=== PATIENT | male | born 1960 | race Caucasian/White ===

== ENCOUNTER 2020-04-02 09:33 | Outpatient (REF) | payer MEDICARE, MEDICAID, SELFPAY ==
--- NOTE | 2020-04-02 09:50 | XR_ITS ---
EXAMINATION: XR KNEE, RIGHT CLINICAL INFORMATION: Pain COMPARISON: None TECHNIQUE: Four views of the right knee. FINDINGS: Bone alignment is normal. No fracture or dislocation is seen. The femoral tibial joints are normal. There are small osteophytes at the patellofemoral joint. There are osteophytes at the quadriceps tendon insertion and patellar tendon origin and insertion. There is no joint effusion. XR/XR knee RT 4V IMPRESSION: Mild degenerative changes.
== END 2020-04-02 09:34 | disposition home or self-care (01) ==
LOC: HO.XRAY 09:33
PROVIDERS: PCP Internal Medicine; Visit Provider Internal Medicine
DX: M25.561 Pain in right knee (principal)
CPT/HCPCS: 73564

== ENCOUNTER 2022-02-27 08:25 | Outpatient (REF) | payer OTHER, SELFPAY | END 2022-02-27 08:26 | disposition home or self-care (01) | LOC: HO.XRAY 08:25 | PROVIDERS: PCP Internal Medicine; Visit Provider Internal Medicine | DX: Z13.89 Encounter for screening for other disorder (principal) ==

== ENCOUNTER 2023-01-09 09:56 | Emergency (ER) | payer OTHER, SELFPAY ==
--- NOTE | ~2023-01-09 | CT_ITS ---
EXAMINATION: CT ABDOMEN AND PELVIS WITHOUT CONTRAST CLINICAL INFORMATION: Left flank pain. COMPARISON: 03/18/2012 TECHNIQUE: Multidetector volumetric imaging was performed from the superior aspect of the liver through the pubic symphysis. Sagittal and coronal reformatted images were obtained on the technologist's workstation. This CT examination was performed using dose optimization techniques as appropriate, variously including the following: *Automated exposure control *Adjustment of mA and/or kV according to patient size (this includes techniques or standardized protocols for targeted exams where dose is matched to indication/reason for exam; i.e. extremities or head) *Use of iterative reconstruction technique DLP: 637 mGy-cm FINDINGS: LUNG BASES: The visualized lung bases are unremarkable. LIVER, GALLBLADDER, AND BILIARY TREE: The liver is normal in size, shape, and attenuation. No focal hepatic lesion or biliary ductal dilatation is present. The gallbladder is unremarkable with no evidence of radiopaque gallstones, gallbladder wall thickening, or obvious pericholecystic inflammatory changes. PANCREAS: Unremarkable. SPLEEN: Unremarkable. ADRENAL GLANDS: Unremarkable. KIDNEYS AND URETERS: A 5 mm calculus at the left ureteropelvic junction does not produce significant left-sided hydronephrosis. Multiple additional bilateral nonobstructing renal calculi are identified, numbering at least 3 on the right and one on the left, measuring up to 4 mm in diameter. These calculi are too small to obtain an accurate Hounsfield unit measurement. No right-sided hydroureteronephrosis. Minimal left perinephric fat stranding. Kidneys normal in size and cortical thickness. A simple appearing cyst is present at the upper pole of the right kidney. No suspicious renal lesions. No recommended imaging follow-up. BLADDER: Unremarkable. GASTROINTESTINAL TRACT: Stomach, small bowel, and colon are normal in caliber. Mild to moderate colonic diverticulosis at the descending and sigmoid colon. No intraperitoneal free fluid or free air. Appendix is normal. ABDOMINAL WALL: No significant hernia is appreciated. Focal skin thickening and subcutaneous edema in the right anterolateral abdominal wall on the subcostal region. LYMPH NODES: Normal. VASCULAR: Retroaortic left renal vein. No acute findings. PELVIC VISCERA: Unremarkable. OSSEOUS STRUCTURES: Status post L3 L5 spinal fusion. No fractures. 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 CT/CT abdomen pelvis wo IV con IMPRESSION: 1. A 5 mm calculus at the left ureteropelvic junction does not produce significant left-sided hydronephrosis. 2. Multiple additional nonobstructing bilateral renal calculi. 3. Mild to moderate colonic diverticulosis without evidence of acute diverticulitis. Fleischner guidelines were followed.
[2023-01-09 10:08] VITALS: BP 127/78; PULSE 71; RESP 17; TEMP 36.3; O2SAT 99; BMI 29.3
--- NOTE | 2023-01-09 10:32 | ED.ABDPAIN ---
HPI - Abdominal Pain General Chief Complaint: Abdominal Pain Stated Complaint: l side abd pain blood in urine Time Seen by Provider: 01/09/23 10:28 Source: patient and family Mode of arrival: ambulatory Limitations: no limitations History of Present Illness HPI narrative: 62 yo male with history of DM, HLD, chronic back pain takes prn oxycodone, BPH here with complaints left flank pain with radiation to LLQ x 3-4 days with intermittent hematuria/dysuria/urinary urgency and hesitancy with no clots. No fevers, vomiting, diarrhea, constipation, testicular pain Related Data Previous Rx's Medication Instructions Recorded ibuprofen 600 mg tablet 600 mg PO Q8H PRN pain #30 tabs 01/09/23 tamsulosin 0.4 mg capsule (Flomax) 0.4 mg PO BEDTIME #30 caps 01/09/23 Allergies Allergy/AdvReac Type Severity Reaction Status Date / Time No Known Allergies Allergy Mild NONE Unverified 01/25/20 17:06 Review of Systems Review of Systems Yes all other systems are reviewed and are negative Constitutional: Reports no additional constitutional complaints, Denies body ache(s), Denies chills, Denies fever(s), Denies headache(s) and Denies weakness Eyes: Reports no additional eye complaints and Denies change in vision Reports system reviewed and no additional complaints, except as documented, Denies dizziness, Denies headache(s), Denies nasal congestion, Denies nasal discharge and Denies neck pain Cardiovascular: Reports no additional cardiovascular complaints, Denies chest pain, Denies leg edema and Denies dyspnea Respiratory: Reports no additional respiratory complaints, Denies cough and Denies dyspnea Gastrointestinal: Reports no additional gastrointestinal complaints, Reports abdominal pain, Denies diarrhea, Denies nausea and Denies vomiting Genitourinary: Reports hematuria, Reports dysuria, Reports flank pain, Reports urinary frequency, Reports urinary hesitancy, Denies urinary incontinence and Reports urinary urgency Musculoskeletal: Reports no additional musculoskeletal complaints, Reports back pain, Denies arthralgias, Denies joint swelling, Denies neck pain, Denies numbness and Denies tingling Skin/Breast: Reports system reviewed and no additional complaints, except as docu and Denies rash Reports system reviewed and no additional complaints, except as documented, Denies dizziness, Denies headache(s), Denies numbness, Denies tingling and Denies weakness PMF Past Medical History Attestation statement: The following information was validated with the patient. Source: old records reviewed and nursing notes reviewed Social History Social History Alcohol intake: never Smoked in Last 30 Days: No Use of substances other than those prescribed or required for medical reasons: No Advance Directives: No Physical Exam ED Vital Signs: Vital Signs - 24 hr 01/09/23 10:08 Temperature 97.3 F Pulse Rate 71 Respiratory Rate 17 Blood Pressure 127/78 Pulse Oximetry 99 Oxygen Delivery Method Room Air BMI result Body Mass Index 29.3 Const General: cooperative, healthy appearing, comfortable and no acute distress Orientation/consciousness: patient oriented x3 Limitations: no limitations HENMT Head: Yes normal to inspection Ears: hearing grossly normal bilaterally Eyes General: appearance normal, both eyes and all related structures Pupils: Equal, round and reactive pupils present Neck Neck: Yes normal visual inspection Chest Chest palpation & inspection: normal inspection of the chest Resp Effort & Inspection: normal respiratory effort Auscultation: clear to auscultation bilaterally Cardio Rate: regular rate Rhythm: regular rhythm Peripheral pulses: Peripheral pulses 2+ throughout GI Inspection: Yes normal to inspection Palpation (GI): Soft to palpation, Tenderness to palpation present (GI) (left abdomen) and no guarding General: Yes CVA tenderness (left side ) Back/Spine/Pelvis Back: CVA tenderness (left side ) Skin General skin exam: no rashes or lesions noted Neuro General: patient oriented x3 and moves all extremities Cranial nerves: Yes Equal, round and reactive pupils present Cognition (Neuro): normal cognition Gait exam (Neuro): Normal gait present Course Course Course Narrative: UA show microscopic hematuria. No evidence of mike hematuria. Labs including renal function are normal. Postvoid residual is less than [address] of the abdomen and pelvis shows a left 5 mm UVJ stone with no hydro. Pain much improved with one dose of toradol. Patient tolerating PO with no vomiting. Has oxycodone at home which he uses prn for back pain. Will discharge home with ibuprofen, flomax and recommendations to follow up outpatient with Urology. Reviewed worrisome signs and symptoms of when to return to the emergency room. Comfortable plan for discharge home. Medical Decision Making Medical Decision Making [facility] Narrative: 62 yo male with history of DM, HLD, chronic back pain takes prn oxycodone, BPH here with complaints left flank pain with radiation to LLQ x 3-4 days with intermittent hematuria/dysuria/urinary urgency and hesitancy with no clots. No fevers, vomiting, diarrhea, constipation, testicular pain On exam has L CVAT, mild tenderness to left abdomen with no rebound or guarding. Will need labs, UA, CT, check PVR Will place PIV and give IVF, analgesia Differential Diagnosis Differential Diagnoses: The differential diagnosis associated with the presentation includes renal colic, uti, pyelo Admission/Observation Consideration of admission/observation: Escalation of care including admission/observation considered see course of care Lab Data MDM Lab Attestation statement: I reviewed the patient's lab results. 01/09/23 10:25 01/09/23 10:25 Labs: Lab Results 01/09/23 01/09/23 01/09/23 Range/Units 10:25 10:25 10:25 WBC 7.8 (4.8-10.8) X10*3/uL RBC 4.64 (4.60-5.80) X10*6/uL Hgb 13.8 L (14.0-18.0) g/dl Hct 41.3 L (42.0-52.0) % MCV 89.0 (80.0-98.0) fL MCH 29.7 (27.0-33.0) pg MCHC 33.4 (31.0-36.0) g/dl RDW 12.1 (11.0-16.0) % Plt Count 154 L (160-400) X10*3/uL MPV 10.3 (9.4-12.4) fL Immature Gran % (Auto) 0.3 (0.0-0.4) % Neut % (Auto) 81.9 H (45-73) % Lymph % (Auto) 10.1 L (20-40) % [place] % (Auto) 6.5 (2-11) % Eos % (Auto) 0.6 (0-4) % Baso % (Auto) 0.6 (0-2) % Lymph # (Auto) 0.8 L (1.2-4.9) X10*3/uL [place] # (Auto) 0.5 (0.1-1.2) X10*3/uL Eos # (Auto) 0.1 (0.0-0.4) X10*3/uL Baso # (Auto) 0.1 (0.0-0.2) X10*3/uL Abs Immat Gran (auto) 0.02 (0.00-0.03) X10*3/uL Absolute Neuts (auto) 6.4 (2.0-8.3) x10*3/uL Absolute Nucleated RBC 0.000 (0.0-0.012) X10*3/uL Nucleated RBC % (auto) 0.0 (0.0-0.2) /100WBC Sodium 141 (135-145) mmol/L Potassium 4.1 (3.3-5.1) mmol/L Chloride 108 (96-108) mmol/L Carbon Dioxide 23 (22-29) mmol/L Anion Gap 14 (12-20) BUN 21 H (9-16) mg/dL Creatinine 0.94 (0.5-1.4) mg/dL Estim Creat Clear Calc 89.2 Estimated GFR > 60 Random Glucose 124 H (60-115) mg/dL Calcium 9.5 (8.4-10.2) mg/dL Total Bilirubin 0.8 (0.0-1.0) mg/dL Direct Bilirubin 0.3 (0.0-0.5) mg/dL AST 29 (5-37) U/L ALT 32 (0-40) U/L Alkaline Phosphatase 63 (39-117) U/L Total Protein 7.5 (6.5-8.0) g/dL Albumin 4.4 (3.5-5.0) g/dL Lipase 150 H (8-78) U/L Urine Color Yellow Urine Appearance Clear Urine pH 5.5 (5.0-9.0) Ur Specific [place] 1.025 (1.005-1.025) Urine Protein 30 (1+) H (Neg-Trace) mg/dL Urine Glucose (UA) >=1000 H (Negative) mg/dL Urine Ketones Negative (Negative) mg/dL Urine Blood Large (3+) H (Negative) Urine Nitrite Negative (Negative) Ur Leukocyte Esterase Trace H (Negative) Urine RBC >20 H (0-2) /HPF Urine WBC 0-5 (0-5) /HPF Ur Squamous Epith Cells 0-2 (0-2) /HPF Urine Bacteria None Seen (None Seen) Hyaline Casts 0-2 (0-2) /LPF Independent Interpretation I performed an independent interpretation of an: CT Scan Interpretation: I independently reviewed the CT scan agree with radiology report Radiology Impression Discussion of test interpretation with radiology: I have reviewed the radiologist's reading. Radiologist Impression: FINDINGS: LUNG BASES: The visualized lung bases are unremarkable.? LIVER, GALLBLADDER, AND BILIARY TREE: The liver is normal in size, shape, and attenuation. No focal hepatic lesion or biliary ductal dilatation is present. The gallbladder is unremarkable with no evidence of radiopaque gallstones, gallbladder wall thickening, or obvious pericholecystic inflammatory changes.? PANCREAS: Unremarkable.? SPLEEN: Unremarkable.? ADRENAL GLANDS: Unremarkable.? KIDNEYS AND URETERS: A 5 mm calculus at the left ureteropelvic junction does not produce significant left-sided hydronephrosis. Multiple additional bilateral nonobstructing renal calculi are identified, numbering at least 3 on the right and one on the left, measuring up to 4 mm in diameter. These calculi are too small to obtain an accurate Hounsfield unit measurement. No right-sided hydroureteronephrosis. Minimal left perinephric fat stranding. Kidneys normal in size and cortical thickness. A simple appearing cyst is present at the upper pole of the right kidney. No suspicious renal lesions. No recommended imaging follow-up. BLADDER: Unremarkable.? GASTROINTESTINAL TRACT: Stomach, small bowel, and colon are normal in caliber. Mild to moderate colonic diverticulosis at the descending and sigmoid colon. No intraperitoneal free fluid or free air. Appendix is normal. ABDOMINAL WALL: No significant hernia is appreciated. Focal skin thickening and subcutaneous edema in the right anterolateral abdominal wall on the subcostal region. LYMPH NODES: Normal. VASCULAR: Retroaortic left renal vein. No acute findings. PELVIC VISCERA: Unremarkable.? OSSEOUS STRUCTURES: Status post L3 L5 spinal fusion. No fractures. 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 CT/CT abdomen pelvis wo IV con IMPRESSION: 1.? A 5 mm calculus at the left ureteropelvic junction does not produce significant left-sided hydronephrosis. 2.? Multiple additional nonobstructing bilateral renal calculi. 3.? Mild to moderate colonic diverticulosis without evidence of acute diverticulitis. ? Independent Historian Clinical information obtained from an independent historian. History obtained from or confirmed by: Other daughter Medications Administered Discontinued Medications Generic Name Dose Route Start Last Admin Trade Name Freq PRN Reason Stop Dose Admin Sodium Chloride 1,000 mls @ 999 mls/hr 01/09/23 10:47 01/09/23 10:53 Ns IV 01/09/23 11:47 999 mls/hr .Q1H1M STA Administration Ketorolac Tromethamine 30 mg 01/09/23 10:47 01/09/23 10:55 Ketorolac Tromethamine 30 Mg/Ml Vial IVPUSH 01/09/23 10:48 30 mg ONCE ONE Administration Discharge Plan Discharge Clinical Impression: Calculus of kidney Patient Disposition: Home, Self-Care Instructions: Kidney Stones (ED) Additional Instructions: Return for fever, vomiting, worsening pain Increase fluids, rest Follow-up with urology Regrese por fiebre, v?mitos o empeoramiento del dolor. Aumentar l?quidos, descansar. Seguimiento con urolog?a. Prescriptions: New tamsulosin [Flomax] 0.4 mg capsule 0.4 mg PO BEDTIME Qty: 30 0RF ibuprofen 600 mg tablet 600 mg PO Q8H PRN (Reason: pain) Qty: 30 0RF Referrals: Chandler Shields MD [Physician] - 1 week Interventions: ED Discharge Assessment Last Done: 01/09/23 12:17 Discharge Date/Time: 01/09/23 12:18
[2023-01-09 10:33] LABS: MANUAL DIFF FLAG NO
[2023-01-09 10:34] LABS: Appearance Urine Clear; Color Urine Yellow; Glucose Urine UA >=1000 mg/dL (Negative); Leukocyte Esterase Urine Trace (Negative); Nitrite Urine Negative (Negative); PH 5.5 (5.0-9.0); Specific Gravity - Urine 1.025 (1.005-1.025); UMIC TRIGGER UACC YES; Urine Blood Large (3+) (Negative); Urine Ketones Negative (Negative); Urine Protein 30 (1+) mg/dL (Neg-Trace)
[2023-01-09 10:39] LABS: Bacteria Urine None Seen (None Seen); Hyaline Casts Urine 0-2 /LPF (0-2); RBC Urine >20 /HPF (0-2); Squamous Epithelial Cell Urine 0-2 /HPF (0-2); WBC Urine 0-5 /HPF (0-5)
[2023-01-09 10:50] LABS: Basophils Absolute Auto 0.1 X10*3/uL (0.0-0.2); Basophils Percent Auto 0.6 % (0-2); Eosinophils Absolute Auto 0.1 X10*3/uL (0.0-0.4); Eosinophils Percent Auto 0.6 % (0-4); Hematocrit 41.3 % (42.0-52.0); Hemoglobin 13.8 g/dl (14.0-18.0); Imm Gran Abs Auto 0.02 X10*3/uL (0.00-0.03); Imm Gran Pct Auto 0.3 % (0.0-0.4); Lymphocytes Absolute Auto 0.8 X10*3/uL (1.2-4.9); Lymphocytes Percent Auto 10.1 % (20-40); Mean Corpuscular HGB Conc 33.4 g/dl (31.0-36.0); Mean Corpuscular Hemoglobin 29.7 pg (27.0-33.0); Mean Platelet Volume 10.3 fL (9.4-12.4); Monocytes Absolute Auto 0.5 X10*3/uL (0.1-1.2); Monocytes Percent Auto 6.5 % (2-11); Neutrophils Absolute Auto 6.4 x10*3/uL (2.0-8.3); Neutrophils Percent Auto 81.9 % (45-73); Platelet Count 154 X10*3/uL (160-400); Red Blood Count 4.64 X10*6/uL (4.60-5.80); Red Cell Distribution Width 12.1 % (11.0-16.0); White Blood Count 7.8 X10*3/uL (4.8-10.8)
[2023-01-09] MEDS: 0.9 % Sodium Chloride 1,000 ML 999 ML IV (10:53)
[2023-01-09] MEDS: Ketorolac Tromethamine 30 MG/ML VIAL IVPUSH (10:55)
[2023-01-09 10:58] LABS: Alanine Aminotransferase 32 U/L (0-40); Albumin Level 4.4 g/dL (3.5-5.0); Alkaline Phosphatase 63 U/L (39-117); Anion Gap 14 (12-20); Aspartate Amino Transferase 29 U/L (5-37); Bilirubin Direct 0.3 mg/dL (0.0-0.5); Bilirubin Total 0.8 mg/dL (0.0-1.0); Blood Urea Nitrogen 21 mg/dL (9-16); Calcium 9.5 mg/dL (8.4-10.2); Carbon Dioxide 23 mmol/L (22-29); Chloride 108 mmol/L (96-108); Creatinine Clr Calc Pharmacy 89.2; Estimated Glomerular Filt Rate > 60; Glucose Random 124 mg/dL (60-115); Lipase 150 U/L (8-78); Potassium 4.1 mmol/L (3.3-5.1); Sodium 141 mmol/L (135-145); Total Protein 7.5 g/dL (6.5-8.0)
== END 2023-01-09 12:18 | disposition home or self-care (01) ==
PROVIDERS: Emergency Provider Emergency Medicine; PCP Internal Medicine
DX: N20.0 Calculus of kidney (principal); R31.29 Other microscopic hematuria; E11.9 Type 2 diabetes mellitus without complications; E78.5 Hyperlipidemia, unspecified
CPT/HCPCS: 36415; 51798; 74176; 80048; 80076; 81001; 83690; 85025; 96374; 99284; J1885

== ENCOUNTER 2023-01-25 08:46 | Outpatient (REF) | payer OTHER, SELFPAY ==
[2023-01-25 11:46] LABS: Lipase 41 U/L (8-78)
== END 2023-01-25 08:47 | disposition home or self-care (01) ==
LOC: HO.HHCL 08:46
PROVIDERS: Visit Provider Internal Medicine
DX: R74.8 Abnormal levels of other serum enzymes (principal)
CPT/HCPCS: 36415; 83690

== ENCOUNTER 2023-02-12 14:57 | Outpatient (AMB) | payer OTHER, SELFPAY ==
--- NOTE | 2023-02-12 14:59 | MHC.OFFVIS ---
Intake Intake Visit Reasons: ER Follow up/ UVJ stone Intake Note: New Patient presents for initial visit for [facility] ER follow up kidney stone ER Visit: 01/09/23 Urology Medications: none Blood Thinner: none Licensed Mortgage Loan Officer Required: No Accompanied by: Self / Same As Patient Allergies No Known Allergies Allergy (Mild, Unverified 02/12/23 15:45) NONE Medication List - Last Reconciled 02/12/23 by DEL Coreas-GAMA aspirin 81 mg PO DAILY atorvastatin 20 mg PO DAILY cyclobenzaprine 10 mg PO TID dulaglutide (Trulicity) mg subcut insulin glargine (Lantus U-100 Insulin) units subcut metformin ER 500 mg PO BID omega 9-llh-nwh-fish oil 300 mg (120 mg- 180mg)-1,000 mg caps PO pyridoxine (vitamin B6) 100 mg PO DAILY 90 days zolpidem mg PO HPI HPI Comments History of Present Illness Details Tex is a very pleasant 62-year-old Yi-speaking male patient of Dr. Spears. He has a PMH of history of DM, HLD, and chronic back pain. He presents to the office today as a new patient for nephrolithiasis. In discussion with the patient today he reports to be doing and feeling well. He reports seeking emergency room care at [facility] approximately 1 month ago for left-sided flank pain he had been experiencing. In review of patient's chart it appears CT was ordered and performed. These results were reviewed with the patient today. A 5 mm calculus at the left ureteropelvic junction does not produce significant left-sided hydronephrosis. Multiple additional bilateral nonobstructing renal calculi are identified, numbering at least 3 on the right and one on the left, measuring up to 4 mm in diameter. These calculi are too small to obtain an accurate Hounsfield unit measurement. No right-sided hydroureteronephrosis. Minimal left perinephric fat stranding. Kidneys normal in size and cortical thickness. A simple appearing cyst is present at the upper pole of the right kidney. No suspicious renal lesions. No recommended imaging follow-up per radiology report. The bladder is unremarkable. Patient reports approximately 1 week after ER visit pain had since subsided. He reports believing to have passed his stone. He reports a longstanding history of nephrolithiasis. He denies any previous known surgical history for nephrolithiasis. When asked he does report nocturia however he denies urinary urgency, urinary frequency, incontinence, hematuria, dysuria, foul smelling urine, changes to urinary stream, flank pain, fever, and or chills. He is happy with his current voiding parameters. In office urinalysis results reviewed with the patient today. Discussed at length potential causes for nephrolithiasis. Discussed obtaining retroperitoneal ultrasound for further assessment evaluation. He denies having PSA checked. CHANO offered however deferred. He otherwise offers no other issues or concerns at this time. [facility] Medical History (Updated 02/15/23 @ 17:31 by DEL Coreas-) Chronic back pain Hyperlipidemia Diabetes Social History Alcohol intake: never Review of Systems Const Reports as per HPI Eyes Reports no additional complaints ENT Reports no additional complaints Card Reports as per HPI Resp Reports no additional complaints GI Reports no additional complaints Reports as per HPI Musc Reports as per HPI Neuro Reports no additional complaints Psych Reports no additional complaints Endo Reports as per HPI Physical Exam Const General: cooperative, healthy appearing, comfortable, no acute distress, well developed, alert and awake Orientation/consciousness: patient oriented x3 Limitations: no limitations HEENT Head: Yes normal to inspection, Yes normocephalic and Yes atraumatic Ears: hearing grossly normal bilaterally Eyes General: appearance normal, both eyes and all related structures Neck Neck: Yes normal visual inspection and Yes trachea midline Chest Chest palpation & inspection: normal inspection of the chest Resp Effort & Inspection: normal respiratory effort and able to speak in complete sentences Cardio Rate: regular rate GI Inspection: Yes normal to inspection General: Yes no CVA tenderness Back/Spine/Pelvis Back: no CVA tenderness Skin General skin exam: no rashes or lesions noted Neuro General: patient oriented x3 Extrem General: Yes normal to inspection Psych Appearance: grossly normal and well kempt Mental Status: mental status grossly normal Speech and movement: Normal speech and movement present and Clear speech present Affect: normal affect Attitude: cooperative Thought process: Normal thought process present Thought content: Normal thought content present Insight: Fair insight present (Psych) Judgement: Fair judgement present (Psych) Results AMB Urinalysis, Automated UA Leukoctes 0 Uriel/uL Last Edit by Tracie Strickland on 02/12/23 15:15 UA Nitrite Negative Last Edit by [employer] on 02/12/23 15:15 UA Urobilinogen 0.2 mg/dL Last Edit by [employer] on 02/12/23 15:15 UA Protein 0 mg/dL Last Edit by [employer] on 02/12/23 15:15 UA pH 6.0 Last Edit by [employer] on 02/12/23 15:15 UA Blood 0 Esteban/uL Last Edit by [employer] on 02/12/23 15:15 UA Specific [place] 1.025 Last Edit by Rachel [employer] on 02/12/23 15:15 UA Ketone Negative Last Edit by Rachel [employer] on 02/12/23 15:15 UA Bilirubin 0 mg/dL Last Edit by Rachel [employer] on 02/12/23 15:15 UA Glucose 0 mg/dL Last Edit by Rachel Joyce [employer] on 02/12/23 15:15 Results Reviewed Results Reviewed: Laboratory Last Values Urine pH (Auto) 6.0 02/12/23 15:06 Specific [place] (Auto) 1.025 02/12/23 15:06 Urine Protein (Auto) 0 mg/dL 02/12/23 15:06 Glucose (UA)(Auto) 0 mg/dL 02/12/23 15:06 Urine Ketones (Auto) Negative 02/12/23 15:06 Urine Blood (Auto) 0 Esteban/uL 02/12/23 15:06 Urine Nitrite (Auto) Negative 02/12/23 15:06 Urine Bilirubin (Auto) 0 mg/dL 02/12/23 15:06 Urine Urobilinogen (Auto) 0.2 mg/dL 02/12/23 15:06 Leukocyte Esterase (Auto) 0 Uriel/uL 02/12/23 15:06 Date of Service: 01/09/23 EXAMINATION: CT ABDOMEN AND PELVIS WITHOUT CONTRAST FINDINGS: LUNG BASES: The visualized lung bases are unremarkable. LIVER, GALLBLADDER, AND BILIARY TREE: The liver is normal in size, shape, and attenuation. No focal hepatic lesion or biliary ductal dilatation is present. The gallbladder is unremarkable with no evidence of radiopaque gallstones, gallbladder wall thickening, or obvious pericholecystic inflammatory changes. PANCREAS: Unremarkable. SPLEEN: Unremarkable. ADRENAL GLANDS: Unremarkable. KIDNEYS AND URETERS: A 5 mm calculus at the left ureteropelvic junction does not produce significant left-sided hydronephrosis. Multiple additional bilateral nonobstructing renal calculi are identified, numbering at least 3 on the right and one on the left, measuring up to 4 mm in diameter. These calculi are too small to obtain an accurate Hounsfield unit measurement. No right-sided hydroureteronephrosis. Minimal left perinephric fat stranding. Kidneys normal in size and cortical thickness. A simple appearing cyst is present at the upper pole of the right kidney. No suspicious renal lesions. No recommended imaging follow-up. BLADDER: Unremarkable. GASTROINTESTINAL TRACT: Stomach, small bowel, and colon are normal in caliber. Mild to moderate colonic diverticulosis at the descending and sigmoid colon. No intraperitoneal free fluid or free air. Appendix is normal. ABDOMINAL WALL: No significant hernia is appreciated. Focal skin thickening and subcutaneous edema in the right anterolateral abdominal wall on the subcostal region. LYMPH NODES: Normal. VASCULAR: Retroaortic left renal vein. No acute findings. PELVIC VISCERA: Unremarkable. OSSEOUS STRUCTURES: Status post L3 L5 spinal fusion. No fractures. 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 IMPRESSION: 1. A 5 mm calculus at the left ureteropelvic junction does not produce significant left-sided hydronephrosis. 2. Multiple additional nonobstructing bilateral renal calculi. 3. Mild to moderate colonic diverticulosis without evidence of acute diverticulitis. Assessment & Plan Assessment & Plan (1) Nocturia: Code(s): R35.1 - Nocturia (2) Bilateral nephrolithiasis: Code(s): N20.0 - Calculus of kidney Plan In office urinalysis results reviewed with the patient today; as noted above. Recent CT imaging results reviewed with the patient today; as noted above. Will obtain retroperitoneal ultrasound for further assessment evaluation. Start vitamin B6 as discussed and prescribed. Will obtain PSA. Discussed limiting fluids 3-4 hours prior to bed to assist with decreasing episodes of nocturia. Discussed at length importance of managing diabetes for improvement in lower urinary tract symptoms as well as overall health and well-being. Discussed at length importance of drinking plenty of water daily. Discussed adding 1 oz of lemon juice to water daily. Follow-up in 4-6 weeks with imaging and labs to be completed prior; or sooner with any issues, concerns, and or questions. Orders: Orders AMB Urinalysis Automated 02/12/23 Z13.9 - Encounter for screening, unspecified Prostate Specific Antigen 02/12/23 R35.1 - Nocturia US retroperitoneal comp 02/12/23 N20.0 - Calculus of kidney, R35.1 - Nocturia Medications: New pyridoxine (vitamin B6) 100 mg PO DAILY 90 days 90 tabs 1RF N13.2 - Hydronephrosis with renal and ureteral calculous obstruction Patient Instructions: The patient had an opportunity to ask questions regarding the treatment plan. All questions were answered. Physical exam, labs, and imaging were discussed and reviewed in detail. As well as risks, benefits, and discussion of treatment choices. No major barriers to understanding were identified. The patient expressed understanding and agreement with the above treatment plan. The patient was made aware they should contact our office by phone for worsening of their current condition, the appearance of new symptoms, or with any questions or concerns. Compliance is encouraged with any medications and follow up testing that is ordered. It is a privilege to be allowed the opportunity to participate in? your urological care.? Again, if you have any questions or concerns If you have any questions or concerns please do not hesitate to contact me. The office is [phone]. This note is constructed using voice recognition software. While every effort has been made to ensure accuracy assembler fluorescent lights errors may have been included. Yours sincerely, ZACH Coreas Coding Level of Care Code New Pt Level 4 (02932) Diagnoses Nocturia R35.1 Bilateral nephrolithiasis N20.0
== END 2023-02-12 15:31 | disposition home or self-care (01) ==
PROVIDERS: PCP Internal Medicine; Visit Provider Nurse Practitioner Family
DX: R35.1 Nocturia (principal); N20.0 Calculus of kidney
CPT/HCPCS: 99204

== ENCOUNTER → 2023-02-12 14:57 | Outpatient (BNVA) | payer OTHER, SELFPAY | PROVIDERS: PCP Internal Medicine; Visit Provider Nurse Practitioner Family | DX: R35.1 Nocturia (principal); N20.0 Calculus of kidney | CPT/HCPCS: 81003 ==

== ENCOUNTER 2023-03-02 08:20 | Outpatient (REF) | payer OTHER, SELFPAY ==
[2023-03-02 09:58] LABS: Prostate Specific Antigen 0.17 ng/mL (<0.05-4.0)
== END 2023-03-02 08:21 | disposition home or self-care (01) ==
LOC: HO.LAB 08:20
PROVIDERS: PCP Internal Medicine; Visit Provider Nurse Practitioner Family
DX: R35.1 Nocturia (principal); Z12.5 Encounter for screening for malignant neoplasm of prostate
CPT/HCPCS: 36415; 84153

== ENCOUNTER 2023-03-16 09:49 | Outpatient (REF) | payer OTHER, SELFPAY ==
--- NOTE | ~2023-03-16 | US_ITS ---
EXAMINATION: US RETROPERITONEAL LIMITED (RENAL ONLY) CLINICAL INFORMATION: Nocturia. COMPARISON: CT abdomen and pelvis without contrast dated 01/09/2023. Ultrasound reveals only dated 12/27/2013. Bilateral renal ultrasound dated 06/10/2012. TECHNIQUE: Real-time imaging of the kidneys. FINDINGS: RIGHT KIDNEY: 11.0 x 6.8 x 6.3 cm (SAG x AP x TRV). The kidney is normal in size, contour, and echogenicity. Renal cortical thickness is normal. No hydronephrosis. There are multiple cysts size and is upper pole 3.4 x 3.3 x 3.2 cm, and 0.3 x 0.3 x 0.4 cm, lower lower pole 2.0 x 2.0 x 1.2 cm, interpolar 0.4 x 0.3 x 0.3 cm. There are multiple echogenic foci most likely small nonobstructing calculi measured in the upper pole 0.3 x 0.3 x 0.4 cm, in interpolar cortex measured 0.3 x 0.3 x 0.3 cm LEFT KIDNEY: 13.0 x 5.6 x 4.6 cm (SAG x AP x TRV). The kidney is normal in size, contour, and echogenicity. Renal cortical thickness is normal. No focal parenchymal lesions or hydronephrosis. There is 0.3 x 0.2 x 0.2 cm nonobstructing calculus in interpolar region. US/US renal BI IMPRESSION: Nephrolithiasis bilaterally and simple cysts in the right kidney.
== END 2023-03-16 09:50 | disposition home or self-care (01) ==
LOC: HO.US 09:49
PROVIDERS: PCP Internal Medicine; Visit Provider Nurse Practitioner Family
DX: N20.0 Calculus of kidney (principal); R35.1 Nocturia
CPT/HCPCS: 76775

== ENCOUNTER 2023-03-19 10:41 | Outpatient (REF) | payer OTHER, SELFPAY | END 2023-03-19 10:42 | disposition home or self-care (01) | LOC: HO.US 10:41 | PROVIDERS: PCP Internal Medicine; Visit Provider Nurse Practitioner Family | DX: Z13.89 Encounter for screening for other disorder (principal) ==

== ENCOUNTER 2023-03-23 08:42 | Outpatient (AMB) | payer OTHER, SELFPAY ==
--- NOTE | 2023-03-23 08:55 | MHC.OFFVIS ---
Intake Intake Visit Reasons: 6w/US/PSA(pending 03/19) Intake Note: Patient presents for follow up visit for kidney stone/psa lab/ultrasound (imaging 03/16/23) (psa 0.17) Urology Medications: Vitamin B6 Blood Thinner: aspirin Retail Sales Clerk Required: Yes Retail Sales Clerk Name: [id number] Accompanied by: Self / Same As Patient Allergies No Known Allergies Allergy (Mild, Unverified 03/23/23 09:18) NONE Medication List - Last Reconciled 03/23/23 by DEL Coreas-GAMA aspirin 81 mg PO DAILY atorvastatin 20 mg PO DAILY cyclobenzaprine 10 mg PO TID dulaglutide (Trulicity) mg subcut insulin glargine (Lantus U-100 Insulin) units subcut metformin ER 500 mg PO BID omega 4-cqe-dug-fish oil 300 mg (120 mg- 180mg)-1,000 mg caps PO pyridoxine (vitamin B6) 100 mg PO DAILY 90 days zolpidem mg PO HPI HPI Comments History of Present Illness Details Tex is a very pleasant 62-year-old Cymro-speaking male patient of Dr. Spears. He has a PMH of history of DM, HLD, and chronic back pain. He presents to the office today for a follow up. Of note, patient was seen approxitamtely 6 weeks ago as a new patient for nephrolithiasis at which time a retroperitoneal ultrasound was ordered for further assessment evaluation. These results reviewed with the patient today. Right kidney with multiple cysts size and is an upper pole 3.4 x 3.3 x 3.2 cm, and 0.3 x 0.3 x 0.4 cm, lower lower pole 2.0 x 2.0 x 1.2 cm, interpolar 0.4 x 0.3 x 0.3 cm. There are multiple echogenic foci most likely small nonobstructing calculi measured in the upper pole 0.3 x 0.3 x 0.4 cm, in interpolar cortex measured 0.3 x 0.3 x 0.3 cm. Left kidney with no lesions or hydronephrosis noted. There is 0.3 x 0.2 x 0.2 cm nonobstructing calculus in interpolar region. He denies any bothersome urinary issues or concerns at this time. Recent PSA results reviewed with the patient today. PSAs are as follows: 04/26--1.1 03/01-- 0.2 In discussion with the patient today he reports to be doing and feeling well. He reports a longstanding history of nephrolithiasis. He denies any previous known surgical history for nephrolithiasis. When asked he does report nocturia however he denies urinary urgency, urinary frequency, incontinence, hematuria, dysuria, foul smelling urine, changes to urinary stream, flank pain, fever, and or chills. He is happy with his current voiding parameters. In office urinalysis results reviewed with the patient today. Discussed at length potential causes for nephrolithiasis. He otherwise offers no other issues or concerns at this time. [facility] Medical History Chronic back pain Hyperlipidemia Diabetes Social History Alcohol intake: never Review of Systems Const Reports as per HPI Eyes Reports no additional complaints ENT Reports no additional complaints Card Reports as per HPI Resp Reports no additional complaints GI Reports no additional complaints Reports as per HPI Musc Reports as per HPI Neuro Reports no additional complaints Psych Reports no additional complaints Endo Reports as per HPI Physical Exam Const General: cooperative, healthy appearing, comfortable, no acute distress, well developed, alert and awake Orientation/consciousness: patient oriented x3 Limitations: no limitations HEENT Head: Yes normal to inspection, Yes normocephalic and Yes atraumatic Ears: hearing grossly normal bilaterally Eyes General: appearance normal, both eyes and all related structures Neck Neck: Yes normal visual inspection and Yes trachea midline Chest Chest palpation & inspection: normal inspection of the chest Resp Effort & Inspection: normal respiratory effort and able to speak in complete sentences Cardio Rate: regular rate GI Inspection: Yes normal to inspection General: Yes no CVA tenderness Back/Spine/Pelvis Back: no CVA tenderness Skin General skin exam: no rashes or lesions noted Neuro General: patient oriented x3 Extrem General: Yes normal to inspection Psych Appearance: grossly normal and well kempt Mental Status: mental status grossly normal Speech and movement: Normal speech and movement present and Clear speech present Affect: normal affect Attitude: cooperative Thought process: Normal thought process present Thought content: Normal thought content present Insight: Fair insight present (Psych) Judgement: Fair judgement present (Psych) Results AMB Urinalysis, Automated UA Leukoctes 0 Uriel/uL Last Edit by Tracie Strickland on 03/23/23 09:05 UA Nitrite Negative Last Edit by Tracie Strickland on 03/23/23 09:05 UA Urobilinogen 0.2 mg/dL Last Edit by Tracie Strickland on 03/23/23 09:05 UA Protein 15 mg/dL Last Edit by Tracie Strickland on 03/23/23 09:05 UA pH 6.0 Last Edit by Tracie Strickland on 03/23/23 09:05 UA Blood 0 Esteban/uL Last Edit by Tracie Strickland on 03/23/23 09:05 UA Specific [place] 1.030 Last Edit by Tracie Strickland on 03/23/23 09:05 UA Ketone Negative Last Edit by Tracie Strickland on 03/23/23 09:05 UA Bilirubin 0 mg/dL Last Edit by Tracie Strickland on 03/23/23 09:05 UA Glucose 0 mg/dL Last Edit by Tracie Strickland on 03/23/23 09:05 Results Reviewed Results Reviewed: Laboratory Last Values Urine pH (Auto) 6.0 03/23/23 08:59 Specific [place] (Auto) 1.030 03/23/23 08:59 Urine Protein (Auto) 15 mg/dL 03/23/23 08:59 Glucose (UA)(Auto) 0 mg/dL 03/23/23 08:59 Urine Ketones (Auto) Negative 03/23/23 08:59 Urine Blood (Auto) 0 Esteban/uL 03/23/23 08:59 Urine Nitrite (Auto) Negative 03/23/23 08:59 Urine Bilirubin (Auto) 0 mg/dL 03/23/23 08:59 Urine Urobilinogen (Auto) 0.2 mg/dL 03/23/23 08:59 Leukocyte Esterase (Auto) 0 Uriel/uL 03/23/23 08:59 Date of Service: 03/16/23 EXAMINATION: US RETROPERITONEAL LIMITED (RENAL ONLY) FINDINGS: RIGHT KIDNEY: 11.0 x 6.8 x 6.3 cm (SAG x AP x TRV). The kidney is normal in size, contour, and echogenicity. Renal cortical thickness is normal. No hydronephrosis. There are multiple cysts size and is upper pole 3.4 x 3.3 x 3.2 cm, and 0.3 x 0.3 x 0.4 cm, lower lower pole 2.0 x 2.0 x 1.2 cm, interpolar 0.4 x 0.3 x 0.3 cm. There are multiple echogenic foci most likely small nonobstructing calculi measured in the upper pole 0.3 x 0.3 x 0.4 cm, in interpolar cortex measured 0.3 x 0.3 x 0.3 cm LEFT KIDNEY: 13.0 x 5.6 x 4.6 cm (SAG x AP x TRV). The kidney is normal in size, contour, and echogenicity. Renal cortical thickness is normal. No focal parenchymal lesions or hydronephrosis. There is 0.3 x 0.2 x 0.2 cm nonobstructing calculus in interpolar region. IMPRESSION: Nephrolithiasis bilaterally and simple cysts in the right kidney. Assessment & Plan Assessment & Plan (1) Renal cyst: Code(s): N28.1 - Cyst of kidney, acquired (2) Bilateral nephrolithiasis: Code(s): N20.0 - Calculus of kidney (3) Nocturia: Code(s): R35.1 - Nocturia Plan In office urinalysis results reviewed with the patient today; as noted above. Recent retroperitoneal ultrasound results reviewed with the patient today; as noted above. Continue with vitamin B6 daily as discussed and prescribed. Recent PSA results reviewed with the patient today; as noted above. Patient reporting nocturia however does not find this bothersome continue limiting fluids 3-4 hours prior to bed to assist with decreasing episodes of nocturia. Discussed at length importance of managing diabetes for improvement in lower urinary tract symptoms as well as overall health and well-being. Discussed at length importance of drinking plenty of water daily. Discussed adding 1 oz of lemon juice to water daily. Renal ultrasound in 6 months for surveillance monitoring Follow-up in 6 months with imaging to be completed prior; or sooner with any issues, concerns, and or questions. Orders: Orders AMB Urinalysis Automated 03/23/23 Z13.9 - Encounter for screening, unspecified US renal BI 6 Months N20.0 - Calculus of kidney, N28.1 - Cyst of kidney, acquired Patient Instructions: The patient had an opportunity to ask questions regarding the treatment plan. All questions were answered. Physical exam, labs, and imaging were discussed and reviewed in detail. As well as risks, benefits, and discussion of treatment choices. No major barriers to understanding were identified. The patient expressed understanding and agreement with the above treatment plan. The patient was made aware they should contact our office by phone for worsening of their current condition, the appearance of new symptoms, or with any questions or concerns. Compliance is encouraged with any medications and follow up testing that is ordered. It is a privilege to be allowed the opportunity to participate in? your urological care.? Again, if you have any questions or concerns If you have any questions or concerns please do not hesitate to contact me. The office is [phone]. This note is constructed using voice recognition software. While every effort has been made to ensure accuracy smoking pipe maker errors may have been included. Yours sincerely, ZACH Coreas Coding Level of Care Code Est Pt Level 3 (24421) Diagnoses Renal cyst N28.1 Bilateral nephrolithiasis N20.0 Nocturia R35.1
== END 2023-03-23 09:38 | disposition home or self-care (01) ==
PROVIDERS: PCP Internal Medicine; Visit Provider Nurse Practitioner Family
DX: N28.1 Cyst of kidney, acquired (principal); N20.0 Calculus of kidney; R35.1 Nocturia
CPT/HCPCS: 99213

== ENCOUNTER → 2023-03-23 08:42 | Outpatient (BNVA) | payer OTHER, SELFPAY | PROVIDERS: PCP Internal Medicine; Visit Provider Nurse Practitioner Family | DX: N28.1 Cyst of kidney, acquired (principal); N20.0 Calculus of kidney; R35.1 Nocturia | CPT/HCPCS: 81003; 99212 ==

== ENCOUNTER 2023-07-06 09:04 | Outpatient (REF) | payer OTHER, SELFPAY ==
[2023-07-06 12:16] LABS: Alanine Aminotransferase 88 U/L (0-40); Albumin Level 4.3 g/dL (3.5-5.0); Alkaline Phosphatase 61 U/L (39-117); Anion Gap 14 (12-20); Aspartate Amino Transferase 47 U/L (5-37); Bilirubin Direct 0.3 mg/dL (0.0-0.5); Bilirubin Total 0.8 mg/dL (0.0-1.0); Blood Urea Nitrogen 19 mg/dL (9-16); Calcium 9.5 mg/dL (8.4-10.2); Carbon Dioxide 28 mmol/L (22-29); Chloride 106 mmol/L (96-108); Cholesterol 120 mg/dL (<200); Estimated Glomerular Filt Rate > 60; Glucose Random 136 mg/dL (60-115); HDL Cholesterol 37 mg/dL (>40); LDL Cholesterol Calculated 60 mg/dL (<100); Potassium 4.5 mmol/L (3.3-5.1); Sodium 143 mmol/L (135-145); Total Protein 7.4 g/dL (6.5-8.0); Triglycerides 117 mg/dL (<150)
[2023-07-06 13:10] LABS: Reflex LDLD? No
== END 2023-07-06 09:05 | disposition home or self-care (01) ==
LOC: HO.HHCL 09:04
PROVIDERS: Visit Provider Internal Medicine
DX: E11.9 Type 2 diabetes mellitus without complications (principal); E78.2 Mixed hyperlipidemia; Z79.4 Long term (current) use of insulin
CPT/HCPCS: 36415; 80048; 80061; 80076

== ENCOUNTER 2023-07-30 08:43 | Outpatient (REF) | payer OTHER, SELFPAY ==
[2023-07-30 12:11] LABS: Alanine Aminotransferase 54 U/L (0-40); Albumin Level 4.5 g/dL (3.5-5.0); Alkaline Phosphatase 64 U/L (39-117); Aspartate Amino Transferase 33 U/L (5-37); Bilirubin Direct 0.3 mg/dL (0.0-0.5); Bilirubin Total 0.6 mg/dL (0.0-1.0); Total Protein 7.6 g/dL (6.5-8.0)
== END 2023-07-30 08:44 | disposition home or self-care (01) ==
LOC: HO.HHCL 08:43
PROVIDERS: Visit Provider Internal Medicine
DX: R79.89 Other specified abnormal findings of blood chemistry (principal)
CPT/HCPCS: 36415; 80076

== ENCOUNTER 2023-09-23 13:19 | Outpatient (REF) | payer OTHER, SELFPAY ==
--- NOTE | ~2023-09-23 | US_ITS ---
EXAMINATION: US RETROPERITONEAL LIMITED (RENAL ONLY) CLINICAL INFORMATION: Calculus of kidney. COMPARISON: Renal ultrasound 03/16/2023. CT abdomen and pelvis without contrast 01/09/2023. Renal ultrasound 12/27/2013. TECHNIQUE: Real-time imaging of the kidneys. FINDINGS: RIGHT KIDNEY: 11.3 x 6.9 x 5.8 cm (SAG x AP x TRV). The kidney is normal in size, contour, and echogenicity. Renal cortical thickness is normal. No hydronephrosis. 3.9 cm simple cyst in the upper pole. 2.1 cm simple parapelvic cyst in the lower pole. No follow-up imaging is recommended. Cluster of 3 small calculi measuring up to 4 mm in size noted in the mid kidney. LEFT KIDNEY: 13.1 x 6.2 x 6.3 cm (SAG x AP x TRV). The kidney is normal in size, contour, and echogenicity. Renal cortical thickness is normal. No renal calculi or hydronephrosis. 1.2 cm simple cyst in the mid kidney. No follow-up imaging is recommended. US/US renal BI IMPRESSION: Cluster of 3 small calculi measuring up to 4 mm in size in the mid right kidney. No hydronephrosis.
== END 2023-09-23 13:20 | disposition home or self-care (01) ==
LOC: HO.US 13:19
PROVIDERS: PCP Internal Medicine; Visit Provider Nurse Practitioner Family
DX: N20.0 Calculus of kidney (principal); N28.1 Cyst of kidney, acquired
CPT/HCPCS: 76775

== ENCOUNTER 2023-11-22 09:44 | Outpatient (AMB) | payer OTHER, SELFPAY ==
--- NOTE | 2023-11-22 09:46 | A.OFFVIS_ITS ---
Intake Visit Reasons: follow up/U/S Intake Note: Patient presents today for follow up on: Bilateral Nephrolithiasis, Renal cyst, and Ultrasound Results Imagin10/03/23 Urology Medications: Vitamin B6 Blood Thinner: aspirin City Clerk Required: No Accompanied by: Self / Same As Patient Allergies No Known Allergies Allergy (Mild, Unverified 11/22/23 10:14) NONE Medication List - Last Reconciled 11/22/23 by DEL Coreas- aspirin 81 mg PO DAILY atorvastatin 20 mg PO DAILY cyclobenzaprine 10 mg PO TID dulaglutide (Trulicity) mg subcut insulin glargine (Lantus U-100 Insulin) units subcut metformin ER 500 mg PO BID omega 4-tfs-zyr-fish oil 300 mg (120 mg- 180mg)-1,000 mg caps PO pyridoxine (vitamin B6) 100 mg PO DAILY 90 days zolpidem mg PO HPI Comments Details: Tex is a very pleasant 63-year-old Frisian-speaking male patient of Dr. Spears. He has a PMH of history of DM, HLD, and chronic back pain. He presents to the office today for a follow up of his nephrolithiasis. Recent renal imaging results reviewed with the patient today. Bilateral kidneys with no hydronephrosis. Right kidney with 3.9 cm simple cyst in the upper pole. 2.1 cm simple peripelvic cysts in the lower pole. No follow-up imaging is recommended per radiology report. Cluster of 3 small right renal calculi measuring up to 4 mm in size. Left kidney with no nephrolithiasis. 1.2 cm simple cyst in the mid kidney which requires no follow-up imaging per radiology report. Patient does report having followed up with his PCP recently in discussing left-sided back pain has been experiencing. On exam today no CVA tenderness noted bilaterally. Discussed nephrolithiasis on right side however none noted on left side. Discussed if symptoms worsen to call office will obtain CT KUB for further assessment evaluation. When asked he does report compliance with adequate hydration however pH 5.5 on UA today. Discussed, educated, and stressed the importance of hydration in relation to nephrolithiasis. He does report compliance with vitamin B6 as prescribed. He otherwise denies any bothersome urinary issues. He denies urinary urgency, urinary frequency, incontinence, hematuria, dysuria, foul smelling urine, changes to urinary stream, flank pain, fever, and or chills. Recent PSA results reviewed with the patient today. PSAs are as follows: 04/26--1.1 03/01-- 0.2 He is happy with his current voiding parameters. In office urinalysis results reviewed with the patient today. Discussed at length potential causes for nephrolithiasis. He otherwise offers no other issues or concerns at this time. [facility] Medical History Chronic back pain Hyperlipidemia Diabetes Social History Alcohol intake: never Review of Systems Const Reports as per HPI Eyes Reports no additional complaints ENT Reports no additional complaints Card Reports as per HPI Resp Reports no additional complaints GI Reports no additional complaints Reports as per HPI Musc Reports as per HPI Neuro Reports no additional complaints Psych Reports no additional complaints Endo Reports as per HPI Physical Exam Const General: cooperative, healthy appearing, comfortable, no acute distress, well developed, alert and awake Orientation/consciousness: patient oriented x3 Limitations: no limitations HEENT Head: Yes normal to inspection, Yes normocephalic and Yes atraumatic Ears: hearing grossly normal bilaterally Eyes General: appearance normal, both eyes and all related structures Neck Neck: Yes normal visual inspection and Yes trachea midline Chest Chest palpation & inspection: normal inspection of the chest Resp Effort & Inspection: normal respiratory effort and able to speak in complete sentences Cardio Rate: regular rate GI Inspection: Yes normal to inspection General: Yes no CVA tenderness Back/Spine/Pelvis Back: no CVA tenderness Skin General skin exam: no rashes or lesions noted Neuro General: patient oriented x3 Extrem General: Yes normal to inspection Psych Appearance: grossly normal and well kempt Mental Status: mental status grossly normal Speech and movement: Normal speech and movement present and Clear speech present Affect: normal affect Attitude: cooperative Thought process: Normal thought process present Thought content: Normal thought content present Insight: Fair insight present (Psych) Judgement: Fair judgement present (Psych) Results AMB Urinalysis, Automated UA Leukoctes 0 Uriel/uL Last Edit by Tracie Strickland on 11/22/23 10:05 UA Nitrite Negative Last Edit by Tracie Strickland on 11/22/23 10:05 UA Urobilinogen 0.2 mg/dL Last Edit by Tracie Strickland on 11/22/23 10:05 UA Protein 0 mg/dL Last Edit by Tracie Strickland on 11/22/23 10:05 UA pH 5.5 Last Edit by Tracie Strickland on 11/22/23 10:05 UA Blood 0 Esteban/uL Last Edit by Tracie Strickland on 11/22/23 10:05 UA Specific [place] 1.020 Last Edit by Tracie Strickland on 11/22/23 10:05 UA Ketone Negative Last Edit by Tracie Strickland on 11/22/23 10:05 UA Bilirubin 0 mg/dL Last Edit by Tracie Strickland on 11/22/23 10:05 UA Glucose 1000 mg/dL Last Edit by Tracie Strickland on 11/22/23 10:05 Results Reviewed Results Reviewed: Laboratory Last Values Urine pH (Auto) 5.5 11/22/23 09:52 Specific [place] (Auto) 1.020 11/22/23 09:52 Urine Protein (Auto) 0 mg/dL 11/22/23 09:52 Glucose (UA)(Auto) 1000 mg/dL 11/22/23 09:52 Urine Ketones (Auto) Negative 11/22/23 09:52 Urine Blood (Auto) 0 Esteban/uL 11/22/23 09:52 Urine Nitrite (Auto) Negative 11/22/23 09:52 Urine Bilirubin (Auto) 0 mg/dL 11/22/23 09:52 Urine Urobilinogen (Auto) 0.2 mg/dL 11/22/23 09:52 Leukocyte Esterase (Auto) 0 Uriel/uL 11/22/23 09:52 Date of Service: 09/23/23 Procedure(s): US renal BI FINDINGS: RIGHT KIDNEY: 11.3 x 6.9 x 5.8 cm (SAG x AP x TRV). The kidney is normal in size, contour, and echogenicity. Renal cortical thickness is normal. No hydronephrosis. 3.9 cm simple cyst in the upper pole. 2.1 cm simple parapelvic cyst in the lower pole. No follow-up imaging is recommended. Cluster of 3 small calculi measuring up to 4 mm in size noted in the mid kidney. LEFT KIDNEY: 13.1 x 6.2 x 6.3 cm (SAG x AP x TRV). The kidney is normal in size, contour, and echogenicity. Renal cortical thickness is normal. No renal calculi or hydronephrosis. 1.2 cm simple cyst in the mid kidney. No follow-up imaging is recommended. IMPRESSION: Cluster of 3 small calculi measuring up to 4 mm in size in the mid right kidney. No hydronephrosis. Assessment & Plan Assessment & Plan (1) Renal cyst: Code(s): N28.1 - Cyst of kidney, acquired Category: Medical (2) Bilateral nephrolithiasis: Code(s): N20.0 - Calculus of kidney Category: Medical Plan In office urinalysis results reviewed with the patient today; as noted above. Recent renal ultrasound results reviewed with the patient today; as noted above. Continue with vitamin B6 daily as discussed and prescribed. Will obtain PSA Discussed at length importance of managing diabetes for overall health and well- being. Discussed at length importance of drinking plenty of water daily. Discussed adding 1 oz of lemon juice to water daily. Renal ultrasound in 6 months for surveillance monitoring Follow-up in 6 months with imaging to be completed prior; or sooner with any issues, concerns, and or questions. Orders: Orders Prostate Specific Antigen Today N40.0 - Benign prostatic hyperplasia without lower urinary tract symptoms AMB Urinalysis Automated Today Z13.9 - Encounter for screening, unspecified US renal BI 6 Months N20.0 - Calculus of kidney Medications: Refilled pyridoxine (vitamin B6) 100 mg PO DAILY 90 tabs 1RF 90 days N13.2 - Hydronephrosis with renal and ureteral calculous obstruction Patient Instructions: The patient had an opportunity to ask questions regarding the treatment plan. All questions were answered. Physical exam, labs, and imaging were discussed and reviewed in detail. As well as risks, benefits, and discussion of treatment choices. No major barriers to understanding were identified. The patient expressed understanding and agreement with the above treatment plan. The patient was made aware they should contact our office by phone for worsening of their current condition, the appearance of new symptoms, or with any questions or concerns. Compliance is encouraged with any medications and follow up testing that is ordered. It is a privilege to be allowed the opportunity to participate in? your urological care.? Again, if you have any questions or concerns If you have any questions or concerns please do not hesitate to contact me. The office is [phone]. This note is constructed using voice recognition software. While every effort has been made to ensure accuracy film projector operator errors may have been included. Yours sincerely, ZACH Coreas Coding Level of Care Code Est Pt Level 3 (25820) Complex EM visit Add On G2211 Diagnoses Renal cyst N28.1 Bilateral nephrolithiasis N20.0
== END 2023-11-22 10:14 | disposition home or self-care (01) ==
PROVIDERS: PCP Internal Medicine; Visit Provider Nurse Practitioner Family
DX: N28.1 Cyst of kidney, acquired (principal); N20.0 Calculus of kidney; Z13.9 Encounter for screening, unspecified
CPT/HCPCS: 99213; G2211

== ENCOUNTER → 2023-11-22 09:44 | Outpatient (BNVA) | payer OTHER, SELFPAY | PROVIDERS: PCP Internal Medicine; Visit Provider Nurse Practitioner Family | DX: N28.1 Cyst of kidney, acquired (principal); N20.0 Calculus of kidney | CPT/HCPCS: 81003; 99212 ==

== ENCOUNTER 2024-02-29 12:45 | Outpatient (AMB) | payer OTHER, SELFPAY ==
--- NOTE | 2024-02-29 12:57 | A.OFFVIS_ITS ---
Vital Signs 02/29/24 12:58 Height 5 ft 9 in Weight 198 lb 6.656 oz BMI 29.3 BP 116/60 Blood Pressure Location Lt brachial Position Sitting Pulse 72 Pulse Source Monitor Intake Visit Reasons: ciaio lumite injector/dr. gallardo/abn ekg/hyperlipidemia Assistant Statistician Required: Yes Assistant Statistician Name: JANIE [id number] Allergies No Known Allergies Allergy (Mild, Unverified 11/22/23 10:14) NONE Medication List - Last Reconciled 02/29/24 by Omid Ugalde MD aspirin 81 mg PO DAILY atorvastatin 20 mg PO DAILY cyclobenzaprine 10 mg PO TID docusate sodium 100 mg PO DAILY dulaglutide (Trulicity) mg subcut insulin glargine (Lantus U-100 Insulin) units subcut metformin ER 500 mg PO BID omega 8-mmm-pfl-fish oil 300 mg (120 mg- 180mg)-1,000 mg caps PO pyridoxine (vitamin B6) 100 mg PO DAILY 90 days zolpidem mg PO HPI Comments Details: Tex has been referred for evaluation of possible stress test. Per PCP note, EKG had shown mild repolarization abnormalities. Patient himself denies any previous cardiac history. He has got diabetes, dyslipidemia and appropriate medications. He states that for the last few months, he has been noticing chest pain. On several occasions, this has happened with exertion. Description possible angina but difficult to say definitively. However, does not happen every time. Denies any previous cardiac history including coronary disease or myocardial infarction or cardiomyopathy. Discussed with patient using packaging manager. [facility] Medical History Chronic back pain Hyperlipidemia Diabetes Family History (Updated 02/29/24 @ 13:14 by Mirlande Perez) Brother Heart murmur Blood clot in vein Social History (Updated 02/29/24 @ 13:15 by Mirlande Perez) Alcohol intake: former Patient Tobacco Use Status: Former Tobacco user Review of Systems Const Denies weakness ENT Denies dizziness Card Reports chest pain, Denies chest pain with activity, Denies syncope, Denies rapid heart rate, Denies pedal edema, Denies edema, Denies leg edema, Denies lightheadedness, Denies palpitations, Denies dyspnea, Denies dyspnea on exertion and Denies orthopnea Resp Denies cough, Denies dyspnea and Denies dyspnea on exertion GI Denies hematochezia and Denies change in stool character Musc Denies abnormal gait, Denies muscle cramps, Denies muscle weakness, Denies numbness, Denies radiating pain into limb and Denies tingling Neuro Denies abnormal gait, Denies dizziness, Denies syncope, Denies numbness, Denies tingling and Denies weakness Endo Denies palpitations Physical Exam Vital Signs: Last Vital Signs Pulse 72 02/29/24 12:58 BP 116/60 02/29/24 12:58 BMI result Body Mass Index 29.3 Const General: comfortable and no acute distress Orientation/consciousness: patient oriented x3 HEENT Other: Unremarkable Head: Yes normal to inspection Neck Neck: Yes normal visual inspection Chest Chest palpation & inspection: normal inspection of the chest Resp Auscultation: clear to auscultation bilaterally Cardio Palpation: normal PMI Heart sounds: S1 normal heart sound present, S2 normal heart sound present, no gallops, no murmurs and no rubs GI Palpation (GI): Soft to palpation Back/Spine/Pelvis Other: unremarkable Skin General skin exam: no rashes or lesions noted Neuro General: patient oriented x3 Extrem General: Yes normal to inspection Psych Mental Status: mental status grossly normal Assessment & Plan Assessment & Plan (1) Precordial chest pain: Code(s): R07.2 - Precordial pain Category: Medical (2) Diabetes: Code(s): E11.9 - Type 2 diabetes mellitus without complications Category: Medical Plan Exertional sounding chest pain, history of diabetes and dyslipidemia, needs evaluation for coronary disease. We reviewed different options. As there is shortage of technetium for nuclear stress, would not be feasible in the near future. He is unable to exercise on the treadmill because of musculoskeletal issues. Coronary CTA also has a 3-4 month wait time. Hence we can do a dobutamine stress echo as the next option. If any clear-cut ischemic findings noted, then consider diagnostic catheterization. Follow-up after the above. Orders: Orders CA echo transthoracic complete Today I25.10 - Atherosclerotic heart disease of [place] coronary artery without angina pectoris, R07.2 - Precordial pain CA Dobutamine Stress Echo Today R07.2 - Precordial pain Coding Level of Care Code New Pt Level 4 (42525) Diagnoses Precordial chest pain R07.2 Diabetes E11.9
[2024-02-29 12:58] VITALS: BP 116/60; PULSE 72; BMI 29.3
== END 2024-02-29 13:42 | disposition home or self-care (01) ==
PROVIDERS: PCP Internal Medicine; Visit Provider Internal Medicine
DX: R07.2 Precordial pain (principal); E11.9 Type 2 diabetes mellitus without complications
CPT/HCPCS: 99204

== ENCOUNTER → 2024-02-29 12:45 | Outpatient (BNVA) | payer OTHER, SELFPAY | PROVIDERS: PCP Internal Medicine; Visit Provider Internal Medicine | DX: I25.10 Atherosclerotic heart disease of native coronary artery without angina pectoris (principal); R07.2 Precordial pain; E78.5 Hyperlipidemia, unspecified; E11.9 Type 2 diabetes mellitus without complications | CPT/HCPCS: 99202 ==

== ENCOUNTER → 2024-03-07 14:00 | Outpatient (REF) | payer OTHER, SELFPAY ==
--- NOTE | 2024-03-07 14:03 | CA_ITS ---
Transthoracic Echocardiogram Patient (Last, First, Middle): Tex Alston, Gender: Male Date of : 1960 Age: 63 Procedure Date: 03/07/2024 Procedure Type: Transthoracic Echocardiogram Location: OP Height: 172. cm Weight: 92.08 kg BSA: 2.05 m2 Heart Rate: 78 bpm BP: 115 / 70 mmHg Clipping Marker: CASI Referring MD: Omid Ugalde MD Symptoms: I25.10 - Atherosclerotic heart disease of [place] coronary artery without... Study Quality: Fair ECG Rhythm: Sinus Conclusions: - The left ventricular systolic function is normal. The calculated ejection fraction is 63% by biplane method. - No obvious valvular pathology seen on this study. Findings Left Ventricle Normal left ventricular cavity size. There is mildly increased left ventricular wall thickness. The left ventricular systolic function is normal. The calculated ejection fraction is 63% by biplane method. There is no evidence of regional wall motion abnormalities. Diastolic function is normal for age. There is moderate septal asymmetric hypertrophy. Right Ventricle Normal right ventricular cavity size and systolic function. Atria Both atria are normal in size. Aortic Valve There is a normal trileaflet aortic valve. There is no aortic valve stenosis. There is no aortic valve regurgitation. Mitral Valve The mitral valve appears normal. There is mild mitral annular calcification. There is no mitral valve regurgitation. There is no mitral valve stenosis. Pulmonic Valve The pulmonic valve is likely normal. Tricuspid Valve Normal tricuspid valve structure. There is trace tricuspid valve regurgitation. There is no evidence of pulmonary hypertension. Great Vessels The asc aorta is normal in size. Venous The inferior vena cava was not well visualized. The inferior vena cava is normal in size. Pericardium/Pleural There is no evidence of pericardial effusion. Prior Study Comparison No prior study available for comparison. Recommendations, Care & Conclusions No obvious valvular pathology seen on this study. Measurements 2D Linear Measurements IVSd: 1.36 0.6-0.9/0.6-1.0 cm LVIDd: 2.96 3.9-5.3/4.2-5.9 cm LVIDd Index: 1.44 2.4-3.2/2.2-3.1 cm/m2 LVIDs: 2.14 2.0-3.6 cm LVPWd: 1.02 0.7-1.1 cm LA Diam: 3.20 2.7-3.8/3.0-4.0 cm LAIDs Index: 1.56 1.5-2.3 cm/m2 LV Mass: 131.39 67-162/88-224 g LV Mass Index: 64.09 43-95/49-115 g/m2 LVOT Diam: 2.10 3.0+(-)1.3 cm 2D Systolic Function EF 4C: 58.50 >55% EF 2C: 65.50 >55% EF BiP: 62.80 >55% Mitral Valve MV Pk E: 0.56 MV PK A: 0.78 MV Decel Time: 273.00 E/A: 0.70 E'Lateral: 9.79 E'Medial: 6.20 E/E' Med: 9.00 E/E' Lat: 5.70 PHT: 80.00 MVA PHT: 2.75 Decel [place]: 2.04 Aortic Valve AoV Pk Félix: 1.08 AoV Mn Félix: 0.77 AoV VTI: 0.22 AoV Pk Grad: 5.00 Aov Mn Grad: 3.00 CARIDAD Cont.VTI: 2.82 LVOT LVOT Pk Félix: 0.85 LVOT Mn Félix: 0.61 LVOT VTI: 0.18 LVOT Pk Grad: 3.00 LVOT Mn Grad: 2.00 LVOT Diam: 2.10 LVOT Area: 3.46 Diastolic Function MV Pk E: 0.56 MV Pk A: 0.78 E/A: 0.70 E'Medial: 6.20 E/E' Med: 9.00 E' Laterial: 9.79 E/E' Lat: 5.70 Right Ventricle TAPSE (mm): 24.40 TVS' Félix: 10.60 Tricuspid Valve TR Pk Félix: 1.76 TR Pk Grad: 12.00 Great Vessels Aorta Sinus of Valsalva: 3.50 2.0-3.5 cm Ao Asc: 3.20 2.1-3.4 cm Pulmonary Valve PV Pk Félix: 1.06 Peak PV Grad: 4.00 Updated in Other Vendor System with Status of Final Omid Ugalde MD electronically signed on 03/09/2024 10:26:35 AM with status of Final
== END ==
LOC: HO.CARD 14:00
PROVIDERS: PCP Internal Medicine; Visit Provider Internal Medicine
DX: R07.2 Precordial pain (principal); I25.10 Atherosclerotic heart disease of native coronary artery without angina pectoris
CPT/HCPCS: 93306

== ENCOUNTER → 2024-03-07 14:03 | Outpatient (BNV) | payer OTHER, SELFPAY | PROVIDERS: PCP Internal Medicine; Visit Provider Internal Medicine | DX: I42.2 Other hypertrophic cardiomyopathy (principal); I34.81 Nonrheumatic mitral (valve) annulus calcification | CPT/HCPCS: 93306 ==

== ENCOUNTER → 2024-04-11 10:28 | Outpatient (REF) | payer OTHER, SELFPAY ==
--- NOTE | 2024-04-11 10:31 | CA_ITS ---
Acquisition Time: 2024-04-11 11:31:33 Total Exercise Time: 00:11:57 Test Indications: Abnormal ECG Medications: ASA ATORVASTATIN CYCLOBENZAPRINE TRULICITY INSULIN METFORMIN ZOLPIDEM Protocol: DOBUTAMINE Max HR: 160 BPM 102% of Pred: 156 BPM Max BP: 140/078 mmHG Max Work Load: 1.0 METS Pharamcological test with Dobutamine infusion with max dose of 20mcg/kg/min, achieving 99% MPHR, without any anginal symptoms, without any arrythmias, with normotensive response to infusion. Without EKG changes meeting criteria for ischemia. Echo images obtained by [employer] at rest and post peak MPHR with infusion. Definity used by tech. Test reviewed with Dr. Dunn. Referred By: Omid Ugalde Overread By: KAREN GARCIA
[2024-04-11 12:56] LABS: Creatinine Urine 123.28 mg/dL; Microalbum/Creatinine Ratio Ur 19.4 ug/mg cr (<30)
[2024-04-11 13:24] LABS: Alanine Aminotransferase 86 U/L (0-40); Albumin Level 4.4 g/dL (3.5-5.0); Alkaline Phosphatase 62 U/L (39-117); Anion Gap 10 (12-20); Aspartate Amino Transferase 53 U/L (5-37); Bilirubin Total 0.6 mg/dL (0.0-1.0); Blood Urea Nitrogen 17 mg/dL (9-16); Calcium 8.8 mg/dL (8.4-10.2); Carbon Dioxide 25 mmol/L (22-29); Chloride 109 mmol/L (96-108); Cholesterol 199 mg/dL (<200); Estimated Glomerular Filt Rate > 60; Glucose Random 188 mg/dL (60-115); HDL Cholesterol 39 mg/dL (>40); LDL Cholesterol Calculated 104 mg/dL (<100); Potassium 4.2 mmol/L (3.3-5.1); Sodium 140 mmol/L (135-145); Total Protein 7.7 g/dL (6.5-8.0); Triglycerides 282 mg/dL (<150)
== END ==
LOC: HO.CARD 10:28
PROVIDERS: PCP Internal Medicine; Visit Provider Internal Medicine
DX: R07.2 Precordial pain (principal); E78.2 Mixed hyperlipidemia; E11.9 Type 2 diabetes mellitus without complications; Z79.4 Long term (current) use of insulin
CPT/HCPCS: 36415; 80053; 80061; 82043; 82570; 93351; J1250; Q9957

== ENCOUNTER 2024-05-11 09:39 | Outpatient (AMB) | payer OTHER, SELFPAY ==
[2024-05-11 09:41] VITALS: BP 114/70; PULSE 93; BMI 30.3
--- NOTE | 2024-05-11 09:41 | MHC.OFFVIS ---
Vital Signs 05/11/24 09:41 Height 5 ft 9 in Weight 205 lb 0.478 oz BMI 30.3 BP 114/70 Blood Pressure Location Lt brachial Position Sitting Pulse 93 Intake Visit Reasons: f/up- testing Shuttle Final Inspector Required: Yes Shuttle Final Inspector Language: Negative Restorer Name: voice dolan [id number] Allergies No Known Allergies Allergy (Mild, Unverified 05/11/24 09:43) NONE Medication List - Last Reconciled 05/11/24 by Tamar Yanes NP-C aspirin 81 mg PO DAILY atorvastatin 20 mg PO DAILY cyclobenzaprine 10 mg PO TID docusate sodium 100 mg PO DAILY dulaglutide (Trulicity) mg subcut ibuprofen 800 mg PO TID insulin glargine (Lantus U-100 Insulin) units subcut metformin ER 500 mg PO BID omega 1-doh-yvu-fish oil 300 mg (120 mg- 180mg)-1,000 mg caps PO oxycodone 5 mg PO Q6H PRN pyridoxine (vitamin B6) 100 mg PO DAILY 90 days zolpidem mg PO HPI HPI f/up- testing: Details: Tex is a 63-year-old male with past medical history of hyperlipidemia, diabetes who recently reported chest discomfort. He underwent a echocardiogram and dobutamine stress echocardiogram and now presents for follow-up. Today he reports that he continues to have some discomfort in his chest. He says he had an episode yesterday while driving. He says it felt like a pressure in his mid chest that occurred randomly and lasted about 3 minutes before resolving. He says his prior episode had occurred when climbing stairs in his home. The frequency and severity of his symptoms has not changed recently. He admits to being mostly sedentary and watches TV much of the time. He has 1 flight of stairs in the home, going to the bedroom which he normally tolerates well. No shortness of breath, PND, orthopnea or edema. No palpitations, lightheadedness, presyncope, syncope. He believes his diabetes is well controlled. He is compliant with his medications. [facility] Medical History (Updated 05/11/24 @ 11:17 by TRIXIE SneedC) Chronic back pain Hyperlipidemia Diabetes Family History Brother Heart murmur Blood clot in vein Social History Alcohol intake: former Patient Tobacco Use Status: Former Tobacco user Review of Systems Const All systems reviewed & are unremarkable except as noted in HPI and below ENT Denies dizziness Card Reports chest pain, Reports chest pain at rest, Reports chest pain with activity, Denies rapid heart rate, Denies pedal edema, Denies edema, Denies leg edema, Denies lightheadedness, Denies palpitations, Denies dyspnea, Denies dyspnea on exertion and Denies orthopnea Resp Denies cough, Denies dyspnea and Denies dyspnea on exertion GI Denies hematochezia and Denies change in stool character Musc Denies abnormal gait, Denies limited range of motion, Denies muscle cramps, Denies muscle weakness, Denies numbness, Denies radiating pain into limb, Denies stiffness and Denies tingling Neuro Denies abnormal gait, Denies dizziness, Denies numbness and Denies tingling Endo Denies palpitations Physical Exam Vital Signs: Last Vital Signs Pulse 93 05/11/24 09:41 BP 114/70 05/11/24 09:41 BMI result Body Mass Index 30.3 Const General: cooperative, healthy appearing, comfortable and no acute distress Orientation/consciousness: patient oriented x3 Neck Neck: Yes normal visual inspection Resp Effort & Inspection: normal respiratory effort Auscultation: clear to auscultation bilaterally, no crackles, no rales, no rhonchi and no wheezes Cardio Rate: regular rate Rhythm: regular rhythm Heart sounds: S1 normal heart sound present, S2 normal heart sound present, no murmurs and no rubs Neuro General: patient oriented x3 Extrem General: Yes normal to inspection, No no pedal edema and No calf tenderness Psych Appearance: grossly normal Mental Status: mental status grossly normal Speech and movement: Normal speech and movement present Assessment & Plan Assessment & Plan (1) Precordial chest pain: Code(s): R07.2 - Precordial pain Category: Medical Plan: Reports of chest pressure that has occurred at rest and with activity. Last episode occurred yesterday while driving, lasting 3 minutes before resolving. EKG done last visit showed sinus rhythm with no acute ST or T-wave abnormalities, rate 72. Echocardiogram done 03/07/2024 with EF 63%, no valve abnormalities and no regional wall motion abnormalities. A dobutamine stress echocardiogram done 04/11/2024 showed no echo evidence of ischemia. He does have cardiac risk factors of hyperlipidemia and diabetes. Since he continues to have some random symptoms will order a CTA of the coronary arteries for further evaluation. He is agreeable to this plan. No contrast dye allergy. Kidney function is known to be normal. Will order BMP prior to his test. Signs and symptoms of angina reviewed with him. Emergency care if ever needed for symptoms that are unrelieved by rest. Cardiology follow-up 3-4 months, sooner if needed. (2) Hyperlipidemia: Code(s): E78.5 - Hyperlipidemia, unspecified Category: Medical Plan: [place] LDL goal less than 70 in patient with diabetes. Labs done 07/06/2023 showed LDL 60. Repeat labs done 04/11/2024 showed LDL 104. He is currently on atorvastatin 20 mg daily. Will increase his dose up to 40 mg daily. (3) Diabetes: Code(s): E11.9 - Type 2 diabetes mellitus without complications Category: Medical Plan: Hemoglobin A1c goal less than 7. Followed by his PCP. Plan Time spent on chart review, documentation, interview and assessment Orders: Orders CT Cardiac Coronary Angio Today E11.9 - Type 2 diabetes mellitus without complications, E78.5 - Hyperlipidemia, unspecified, R07.2 - Precordial pain Basic Metabolic Panel Today R07.2 - Precordial pain Medications: New atorvastatin Dose increased 40 mg PO BEDTIME 90 tabs 3RF Coding Level of Care Code Est Pt Level 4 (19714) Complex EM visit Add On G2211 Diagnoses Precordial chest pain R07.2 Hyperlipidemia E78.5 Diabetes E11.9 Time Spent (min) 30
== END 2024-05-11 10:10 | disposition home or self-care (01) ==
PROVIDERS: PCP Internal Medicine; Visit Provider Nurse Practitioner Family
DX: R07.2 Precordial pain (principal); E78.5 Hyperlipidemia, unspecified; E11.9 Type 2 diabetes mellitus without complications
CPT/HCPCS: 99214; G2211

== ENCOUNTER → 2024-05-11 09:39 | Outpatient (BNVA) | payer OTHER, SELFPAY | PROVIDERS: PCP Internal Medicine; Visit Provider Nurse Practitioner Family | DX: R07.2 Precordial pain (principal); E11.9 Type 2 diabetes mellitus without complications; E78.5 Hyperlipidemia, unspecified | CPT/HCPCS: 99212 ==

== ENCOUNTER 2024-05-19 09:37 | Outpatient (REF) | payer OTHER, SELFPAY ==
--- NOTE | ~2024-05-19 | US_ITS ---
CLINICAL HISTORY: N20.0 - Calculus of kidney US Renal Comparison: None Findings: Right kidney normal size and echotexture, 11.6 cm length. Multiple cysts are noted, the largest measuring up to 4 cm. Left kidney normal size and echotexture, 12.5 cm length. Nonobstructing 2 mm calculus. 10 mm midpole cyst. No hydronephrosis of either kidney. Normal color Doppler IMPRESSION: Nonobstructing 2 mm left renal calculus. No hydronephrosis bilaterally. Benign cysts. This document has been electronically signed by: Dre Alarcon MD on 05/22/2024 13:01:21
== END 2024-05-19 09:38 | disposition home or self-care (01) ==
LOC: HO.US 09:37
PROVIDERS: PCP Internal Medicine; Visit Provider Nurse Practitioner Family
DX: N20.0 Calculus of kidney (principal)
CPT/HCPCS: 76775

== ENCOUNTER → 2024-05-19 09:40 | Outpatient (BNV) | payer OTHER, SELFPAY | PROVIDERS: PCP Internal Medicine; Visit Provider Radiology Vascular & Interventional Radiology | DX: N20.0 Calculus of kidney (principal); N47.4 Benign cyst of prepuce | CPT/HCPCS: 76775 ==

== ENCOUNTER 2024-05-23 10:09 | Outpatient (AMB) | payer OTHER, SELFPAY ==
--- NOTE | 2024-05-23 10:19 | MHC.OFFVIS ---
Intake Visit Reasons: 6m/PSA/U/S Intake Note: Patient is Present for Follow Up Ultrasound Urology Medication: Vitamin B6 Antibiotic Allergies: None Blood Thinners:Aspirn Speech Assistant Required: No Accompanied by: Self / Same As Patient Allergies No Known Allergies Allergy (Mild, Verified 05/23/24 10:43) NONE Medication List - Last Reconciled 05/23/24 by DEL Coreas- aspirin 81 mg PO DAILY atorvastatin 40 mg PO BEDTIME blood sugar diagnostic (FreeStyle Lite Strips) As directed cyclobenzaprine 10 mg PO TID docusate sodium 100 mg PO DAILY dulaglutide (Trulicity) mg subcut flash glucose sensor (FreeStyle Abhishek 2 Sensor kit) As directed ibuprofen 800 mg PO TID insulin glargine (Lantus U-100 Insulin) units subcut lancets (TRUEplus Lancets) As directed metformin ER 500 mg PO BID omega 4-iep-llc-fish oil 300 mg (120 mg- 180mg)-1,000 mg caps PO oxycodone 5 mg PO Q6H PRN pyridoxine (vitamin B6) 100 mg PO DAILY 90 days zolpidem mg PO HPI Comments Details: Tex is a very pleasant 63-year-old Russian-speaking male patient of Dr. Spears. He has a PMH of history of DM, HLD, and chronic back pain. He presents to the office today for a follow up of his nephrolithiasis. Recent renal imaging results reviewed with the patient today. Nonobstructing 2 mm left renal calculus. No hydronephrosis noted bilaterally. Benign appearing bilateral renal cysts. In discussion with the patient today reports to be doing and feeling well. He discusses following up with PCP regarding low lumbar pain he continues to experience. He currently denies any bothersome urinary issues or concerns. He denies urinary urgency, urinary frequency, incontinence,, hematuria, dysuria, foul smelling urine, changes to urinary stream, flank pain, fever, and or chills. He does report noting episodes of nocturia however relates this to his increased consumption of fluids prior to bed. In office urinalysis results reviewed with the patient today. He is happy with his current voiding parameters. PSAs are as follows: 04/26 1.1, 03/01 0.2 We discussed at length potential causes for nephrolithiasis. He otherwise offers no other issues or concerns at this time. [facility] Medical History Chronic back pain Hyperlipidemia Diabetes Family History Brother Heart murmur Blood clot in vein Social History Alcohol intake: former Patient Tobacco Use Status: Former Tobacco user Review of Systems Const Reports as per HPI Eyes Reports no additional complaints ENT Reports no additional complaints Card Reports as per HPI Resp Reports no additional complaints GI Reports no additional complaints Reports as per HPI Musc Reports as per HPI Neuro Reports no additional complaints Psych Reports no additional complaints Endo Reports as per HPI Physical Exam Const General: cooperative, healthy appearing, comfortable, no acute distress, well developed, alert and awake Nutritional Appearance: average body habitus Orientation/consciousness: patient oriented x3 Limitations: no limitations HEENT Head: Yes normal to inspection, Yes normocephalic and Yes atraumatic Ears: hearing grossly normal bilaterally Eyes General: appearance normal, both eyes and all related structures Neck Neck: Yes normal visual inspection and Yes trachea midline Chest Chest palpation & inspection: normal inspection of the chest Resp Effort & Inspection: normal respiratory effort and able to speak in complete sentences Cardio Rate: regular rate GI Inspection: Yes normal to inspection General: Yes no CVA tenderness Back/Spine/Pelvis Back: no CVA tenderness Skin General skin exam: no rashes or lesions noted Neuro General: patient oriented x3 Extrem General: Yes normal to inspection Psych Appearance: grossly normal and well kempt Mental Status: mental status grossly normal Speech and movement: Normal speech and movement present and Clear speech present Affect: normal affect Attitude: cooperative Thought process: Normal thought process present Thought content: Normal thought content present Insight: Fair insight present (Psych) Judgement: Fair judgement present (Psych) Results AMB Urinalysis, Automated UA Leukoctes 0 Uriel/uL Last Edit by CHRISTIANO Guardado on 05/23/24 10:33 UA Nitrite Negative Last Edit by CHRISTIANO Guardado on 05/23/24 10:33 UA Urobilinogen 0.2 mg/dL Last Edit by CHRISTIANO Guardado on 05/23/24 10:33 UA Protein 15 mg/dL Last Edit by Lina Phillips A on 05/23/24 10:33 UA pH 6.0 Last Edit by iLna Phillips A on 05/23/24 10:33 UA Blood 0 Esteban/uL Last Edit by Lina Phillips, A on 05/23/24 10:33 UA Specific Dorset 1.030 Last Edit by Lina Phillips A on 05/23/24 10:33 UA Ketone Negative Last Edit by Lina Phillips A on 05/23/24 10:33 UA Bilirubin 0 mg/dL Last Edit by Lina Phillips A on 05/23/24 10:33 UA Glucose 250 mg/dL Last Edit by Lina Phillips A on 05/23/24 10:33 Results Reviewed Results Reviewed: Laboratory Last Values Urine pH (Auto) 6.0 05/23/24 10:26 Specific Dorset (Auto) 1.030 05/23/24 10:26 Urine Protein (Auto) 15 mg/dL 05/23/24 10:26 Glucose (UA)(Auto) 250 mg/dL 05/23/24 10:26 Urine Ketones (Auto) Negative 05/23/24 10:26 Urine Blood (Auto) 0 Esteban/uL 05/23/24 10:26 Urine Nitrite (Auto) Negative 05/23/24 10:26 Urine Bilirubin (Auto) 0 mg/dL 05/23/24 10:26 Urine Urobilinogen (Auto) 0.2 mg/dL 05/23/24 10:26 Leukocyte Esterase (Auto) 0 Uriel/uL 05/23/24 10:26 Date of Service: 05/19/24 Procedure(s): US renal BI US Renal Comparison: None Findings: Right kidney normal size and echotexture, 11.6 cm length. Multiple cysts are noted, the largest measuring up to 4 cm. Left kidney normal size and echotexture, 12.5 cm length. Nonobstructing 2 mm calculus. 10 mm midpole cyst. No hydronephrosis of either kidney. Normal color Doppler IMPRESSION: Nonobstructing 2 mm left renal calculus. No hydronephrosis bilaterally. Benign cysts. Assessment & Plan Assessment & Plan (1) Renal cyst: Code(s): N28.1 - Cyst of kidney, acquired Category: Medical (2) Calculus of kidney: Code(s): N20.0 - Calculus of kidney Category: Medical Plan In office urinalysis results reviewed with the patient today; as noted above. Recent renal imaging results reviewed with the patient today; as noted above. We discussed and stressed at length the importance of adequate hydration relation to nephrolithiasis as well as overall health and well-being. Continue vitamin B6 however decreased to 50 mg daily; refill provided. Patient currently denies any bothersome urinary issues or concerns. We discussed importance of limiting fluids 2-3 hours prior to bed to decrease episodes of nocturia. Discussed obtaining PSA as recommended during last office visit. Will obtain renal ultrasound in 6 months. Follow-up in 6 months with imaging, PSA, and PVR; or sooner with any issues, concerns, and or questions Orders: Orders Prostate Specific Antigen Today R35.1 - Nocturia US renal BI 6 Months N20.0 - Calculus of kidney AMB Urinalysis Automated Today Z13.9 - Encounter for screening, unspecified Medications: Changed From pyridoxine (vitamin B6) 100 mg PO DAILY 90 days 90 tabs 1RF N13.2 - Hydronephrosis with renal and ureteral calculous obstruction To pyridoxine (vitamin B6) 50 mg (1/2 x 100 mg) PO DAILY 90 days 45 tabs 3RF N13.2 - Hydronephrosis with renal and ureteral calculous obstruction Patient Instructions: The patient had an opportunity to ask questions regarding the treatment plan. All questions were answered. Physical exam, labs, and imaging were discussed and reviewed in detail. As well as risks, benefits, and discussion of treatment choices. No major barriers to understanding were identified. The patient expressed understanding and agreement with the above treatment plan. The patient was made aware they should contact our office by phone for worsening of their current condition, the appearance of new symptoms, or with any questions or concerns. Compliance is encouraged with any medications and follow up testing that is ordered. It is a privilege to be allowed the opportunity to participate in? your urological care.? Again, if you have any questions or concerns If you have any questions or concerns please do not hesitate to contact me. The office is [phone]. This note is constructed using voice recognition software. While every effort has been made to ensure accuracy refinery operator vapor recovery unit errors may have been included. Yours sincerely, Sondra Toney, WRAPPING CHECKER-BC Coding Level of Care Code Est Pt Level 3 (27609) Diagnoses Renal cyst N28.1 Calculus of kidney N20.0
== END 2024-05-23 10:45 | disposition home or self-care (01) ==
PROVIDERS: PCP Internal Medicine; Visit Provider Nurse Practitioner Family
DX: N28.1 Cyst of kidney, acquired (principal); N20.0 Calculus of kidney; Z13.9 Encounter for screening, unspecified
CPT/HCPCS: 99213

== ENCOUNTER → 2024-05-23 10:09 | Outpatient (BNVA) | payer OTHER, SELFPAY | PROVIDERS: PCP Internal Medicine; Visit Provider Nurse Practitioner Family | DX: N28.1 Cyst of kidney, acquired (principal); N20.0 Calculus of kidney | CPT/HCPCS: 81003; 99212 ==

== ENCOUNTER 2024-06-08 08:03 | Outpatient (REF) | payer OTHER, SELFPAY ==
[2024-06-08 09:08] LABS: Anion Gap 10 (12-20); Blood Urea Nitrogen 16 mg/dL (9-16); Calcium 9.1 mg/dL (8.4-10.2); Carbon Dioxide 27 mmol/L (22-29); Chloride 111 mmol/L (96-108); Estimated Glomerular Filt Rate > 60; Glucose Random 161 mg/dL (60-115); Potassium 4.5 mmol/L (3.3-5.1); Sodium 143 mmol/L (135-145)
[2024-06-08 09:38] LABS: Prostate Specific Antigen 0.19 ng/mL (<0.05-4.0)
--- OUTSIDE RECORDS SUMMARY | 2024-06-08 10:56 | XMS_ITS | Encounter Summary ---
Author Organization [employer] Address [address] [facility] 7 [place] [address] Care Team Providers Care Dry Cleaner Presser Name Role Phone Corey Monsalve MD Primary Care Provide r Reason for Visit * Reason Onset Date Comments Med Refill 11/08/2023 Encounter Details Date Type Department Care Team (Late st Contact Info) Description 11/08/2023 Refill [facility] [address] [place] [address] Corey Monsalve MD [address] [place] [address] Chronic low back pain, unspecified back pain laterality, unspecified whether sciatica present Social History Tobacco Use Types Packs/Day Years Used Date Smoking Tobacco: Never Passive Smoke Exposure: Never Smokeless Tobacco: Never Depression Answer Date Recorded Patient Health Questionnaire-9 Score 11 06/29/2023 Patient Health Questionnaire-9 Score 11 06/29/2023 Last PHQ-9: Questionnaire Data Not on file 0 06/29/2023 Housing Stability Answer Date Recorded What is your housing situation today? I have precious [employer] 06/18/[address] you li ve. Do you have problems with any of the following? None of the above 06/18/2023 Food Insecurity Answer Date Recorded Within the past 12 months, y ou worried that your food would run out before you got money to buy more: Sometimes True 2023 Within the past 12 months,th e food you bought just didn't last and you didn't have enough money to get more: Sometimes True 06/18/2023 Transportation Answer Date Recorded In the past 12 months, has l ack of transportation kept you from medical appts, meetings, work or from getting things needed for daily living? No 06/18/2023 Utilities Answer Date Recorded In the past 12 months, has t he electric, gas, oil or water company threatened to shut off services in your home? No 06/18/2023 Depression Answer Date Recorded Patient Health Questionnaire-2 Score 2 06/29/2023 Sex and Gender Information Value Date Recorded Sex Assigned at Male 03/09/2022 10:17 AM EDT Legal Sex Male 10:17 AM EDT Gender Identity Male 03/09/2022 10:17 AM EDT Sexual Orientation Straight 03/09/2022 10 :17 AM EDT documented as of this encounter Miscellaneous Notes * Telephone Encounter - Teresa Meraz - 11/08/2023 2:38 PM EDT TC from pt requesting medication refill. Medications needing refill : oxyCODONE (Roxicodone) 5 MG immediate release tablet To be sent to: [facility] - [place], [place] - [address] [place] [address] documented in this encounter Plan of Treatment Upcoming Encounters Date Type Department Care Team ([facility] st Contact Info) Description 07/14/2024 10:00 AM EST Clinical Support [facility] [address] [place] [address] Vidhya Dickson RN [address] [place] [address] 08/01/2024 9:00 AM EDT Office Visit [facility] [address] [place] [address] Corey Monsalve MD [address] [place] [address] documented as of this encounter Visit Diagnoses Diagnosis Chronic low back pain, unspecified back pain laterality, unspecified whether sciatica present documented in this encounter Additional Health Concerns Assessment Noted Time PHQ-9 Depression Total Score: 11 024 10:15 AM EST documented as of this encounter Care Teams Dry Cleaner Presser Relationship Specialty Start Date End Date Corey Monsalve MD [address] [place] [address] PCP - General Internal Medicine 12/14/13 documented as of this encounter
--- OUTSIDE RECORDS SUMMARY | 2024-06-08 10:56 | XMS_ITS | Encounter Summary ---
Author Organization [employer] Address [address] [facility] 7t [place] [address] Care Team Providers Care Receiver/Laborer Name Role Phone Corey Monsalve MD Primary Care Provide r Reason for Visit * Reason Comments Med Refill Encounter Details Date Type Department Care Team (Late st Contact Info) Description 11/09/2023 Refill [facility] [address] [place] [address] Corey Monsalve MD [address] [place] [address] Chronic low back pain, unspecified back pain [...] AM EDT documented as of this encounter Plan of Treatment Upcoming Encounters Date Type Department Care Team (Late st Contact Info) Description 07/14/2024 10:00 AM EST Clinical Support [facility] [address] [place] [address] Vidhya Dickson RN [address] [place] [address] 08/01/2024 9:00 AM EDT Office Visit [facility] [address] [place] [address] Corey Monsalve MD [address] [place] [address] documented as of this encounter Visit Diagnoses Diagnosis Chronic low back pain, unspecified back pain laterality, unspecified whether sciatica present documented in this encounter Additional Health Concerns Assessment Noted Time PHQ-9 Depression Total Score: 11 024 10:15 AM EST documented as of this encounter Care Teams Receiver/Laborer Relationship Specialty Start Date End Date Corey Monsalve MD [address] [place] [address] PCP - General Internal Medicine 12/14/13 documented as of this encounter
--- OUTSIDE RECORDS SUMMARY | 2024-06-08 10:56 | XMS_ITS | Encounter Summary ---
Author Organization [email or web address] Address [address] [facility] 7t [place] [address] Care Team Providers Care Inspector Precision Assembly Name Role Phone Corey Monsalve MD Primary Care Provide r Reason for Visit * Reason Comments Med Refill Encounter Details Date Type Department Care Team (Late st Contact Info) Description 01/23/2024 Refill [facility] [address] [place] [address] Corey Monsalve MD [address] [place] [address] Chronic low back pain, unspecified back pain [...] Recorded Patient Health Questionnaire-2 Score 2 06/29/2023 Internet Access Answer Date Recorded Internet Access Q1 Yes 01/10/2024 Internet Access Q2 Not on file 01/10/2024 Sex and Gender Information Value Date Recorded Sex Assigned at Male 03/09/2022 10:17 AM EDT Legal Sex Male 10:17 AM EDT Gender Identity Male 03/09/2022 10:17 AM EDT Sexual Orientation Straight 03/09/2022 10 :17 AM EDT documented as of this encounter Plan of Treatment Upcoming Encounters Date Type Department Care Team (Late st Contact Info) Description 07/14/2024 10:00 AM EST Clinical Support [facility] [address] [place] [address] Vidhya Dickson, TEODORA [address] [place] [address] 08/01/2024 9:00 AM EDT Office Visit [facility] [address] [place] [address] Corey Monsalve MD [address] [place] [address] documented as of this encounter Visit Diagnoses Diagnosis Chronic low back pain, unspecified back pain laterality, unspecified whether sciatica present documented in this encounter Additional Health Concerns Assessment Noted Time PHQ-9 Depression Total Score: 11 024 10:15 AM EST documented as of this encounter Care Teams Inspector Precision Assembly Relationship Specialty Start Date End Date Corey Monsalve MD [address] [place] [address] PCP - General Internal Medicine 12/14/13 documented as of this encounter
--- OUTSIDE RECORDS SUMMARY | 2024-06-08 10:56 | XMS_ITS | Encounter Summary ---
Author Organization [email or web address] Address [address] [facility] 7t [place] [address] Care Team Providers Care Lip Cutter Name Role Phone Corey Monsalve MD Primary Care Provide r Reason for Visit * Reason Comments Med Refill Encounter Details Date Type Department Care Team (Late st Contact Info) Description 11/08/2023 Refill [facility] [address] [place] [address] Corey Monsalve MD [address] [place] [address] Chronic low back pain, unspecified back pain [...] Description 07/14/2024 10:00 AM EST Clinical Support [facility] [address] [place] [address] Vidhya Dickson RN [address] [place] [address] 08/01/2024 9:00 AM EDT Office Visit [facility] [address] [place] [address] Corey Monsalve MD [address] [place] [address] documented as of this encounter Visit Diagnoses Diagnosis Chronic low back pain, unspecified back pain laterality, unspecified whether sciatica present documented in this encounter Additional Health Concerns Assessment Noted Time PHQ-9 Depression Total Score: 11 024 10:15 AM EST documented as of this encounter Care Teams Lip Cutter Relationship Specialty Start Date End Date Corey Monsalve MD [address] [place] [address] PCP - General Internal Medicine 12/14/13 documented as of this encounter
--- OUTSIDE RECORDS SUMMARY | 2024-06-08 10:56 | XMS_ITS | Encounter Summary ---
Author Organization [employer] Address [address] [facility] [address] 7t [place] [address] Care Team Providers Care Hotel And Dining Room Cashier Name Role Phone Corey Monsalve MD Primary Care Provide r Encounter Details Date Type Department Care Team ([facility] st Contact Info) Description 05/19/2024 Orders Only [facility] External Provider, [facility] Social History Tobacco Use Types Packs/Day Years Used Date Smoking Tobacco: Never Passive Smoke Exposure: Never Smokeless Tobacco: Never Depression Answer Date Recorded Patient Health Questionnaire-9 Score 3 03/28/2024 Patient Health Questionnaire-9 Score 3 03/28/2024 Last PHQ-9: Questionnaire Data Not on file 1 05/28/2023 Housing Stability Answer Date Recorded What is [...] Answer Date Recorded Patient Health Questionnaire-2 Score 1 03/28/2024 Internet Access Answer Date Recorded Internet Access [...] Description 07/14/2024 10:00 AM EST Clinical Support [facility] [address] [place] [address] Vidhya Dickson RN [address] [place] [address] 08/01/2024 9:00 AM EDT Office Visit [facility] [address] [place] [address] Corey Monsalve MD [address] [place] [address] documented as of this encounter Procedures Procedure Name Priority Date/Time Associated Diagnosis Comments RENAL BI Routine 05/22/2024 1:01 PM EST documented in this encounter Results * US RENAL BI (05/22/2024 1:01 PM EST) Anatomical Region Laterality Modality Abdomen Ultrasound 05/22/2024 1:01 PM EST Narrative 05/22/2024 1:02 PM EST ? [facility] ?[address] ?[place] [address] ? Ultrasound Report ? Signed ? Patient: Khan Martinez,Tex ?MR# ?? : [id number] ? : 1960 ?Acct:[id number] ? Age/Sex: 63 / M ?ADM Date: 01/10/25 ? Loc: HO.US ? Attending Dr: Sondra SERRANO ? Ordering Physician: Sondra Toney ?? Date of Service: 05/19/24 ?? Procedure(s): US renal BI ?? Accession Number(s): [id number] ? cc: Corey Spears MD; Sondra Toney ? CLINICAL HISTORY: N20.0 - Calculus of kidney ? US Renal ? Comparison: None ? Findings: ?? Right kidney normal size and echotexture, 11.6 cm length. Multiple cysts ?? are noted, the largest measuring up to 4 cm. ?? Left kidney normal size and echotexture, 12.5 cm length. Nonobstructing 2 ?? mm calculus. 10 mm midpole cyst. ? No hydronephrosis of either kidney. Normal color Doppler ? IMPRESSION: ?? Nonobstructing 2 mm left renal calculus. ?? No hydronephrosis bilaterally. ?? Benign cysts. ? This document has been electronically signed by: Dre Alarcon MD on ?? 05/22/2024 13:01:21 ? Dictated By: ?Dre Alarcon MD ? Signed By: ?<Electronically signed by Dre Alarcon MD in OV> ? 05/22/24 1302 ? DD/ 1301 ? TD/TT: 05/22/24 1301 ? Cleaner Wall: ? Procedure Note Sheila, Image - 05/22/2024 [place] [address] Ultrasound Report Signed Patient: Tex AlstonMR# : [id number] : 1960Acct:[id number] Age/Sex: 63 / MADM Date: 05/19/24 Loc: HO.US Attending Dr: Sondra SERRANO Ordering Physician: Sondra Toney Date of Service: 05/19/24 Procedure(s): US renal BI Accession Number(s): [id number] cc: Corey Spears MD; Sondra Toney CLINICAL HISTORY: N20.0 - Calculus of kidney US Renal Comparison: None Findings: Right kidney normal size and echotexture, 11.6 cm length. Multiple cysts are noted, the largest measuring up to 4 cm. Left kidney normal size and echotexture, 12.5 cm length. Nonobstructing 2 mm calculus. 10 mm midpole cyst. No hydronephrosis of either kidney. Normal color Doppler IMPRESSION: Nonobstructing 2 mm left renal calculus. No hydronephrosis bilaterally. Benign cysts. This document has been electronically signed by: Dre Alarcon MD on 05/22/2024 13:01:21 Dictated By: Dre Alarcon MD Signed By: <Electronically signed by Dre Alarcon MD in OV> 05/22/24 1302 DD/ 1301 TD/TT: 05/22/24 1301 Cleaner Wall: [facility] External Provider IMG US PROCEDURES Edited Result - Final documented in this encounter Visit Diagnoses Not on filedocumented in this encounter Additional Health Concerns Assessment Noted Time PHQ-9 Depression Total Score: 3 03/28/20 24 1:17 PM EST documented as of this encounter Care Teams Hotel And Dining Room Cashier Relationship Specialty Start Date End Date Corey Monsalve MD [address] [place] [address] PCP - General Internal Medicine 12/14/13 documented as of this encounter
--- OUTSIDE RECORDS SUMMARY | 2024-06-08 10:56 | XMS_ITS | Encounter Summary ---
Author Organization [employer] Address [address] [facility] 7 [place] [address] Care Team Providers Care Data Warehousing Architect Name Role Phone Corey Monsalve MD Primary Care Provide r Reason for Visit * Reason Comments Med Refill Encounter Details Date Type Department Care Team (Late st Contact Info) Description 05/22/2024 Refill [facility] [address] [place] [address] Corey Monsalve MD [address] [place], [place] [phone] Type 2 diabetes mellitus without complication, with long-term current use of insulin ([facility]) Social History Tobacco Use Types Packs/Day Years [...] Description 07/14/2024 10:00 AM EST Clinical Support [facility] [address] [place] [phone] Vidhya Dickson, TEODORA [address] [place] [address] 08/01/2024 9:00 AM EDT Office Visit [facility] [address] [place] [address] Corey Monsalve MD [address] [place] [address] documented as of this encounter Visit Diagnoses Diagnosis Type 2 diabetes mellitus without complication, with long-term current use of insulin ([facility]) documented in this encounter Additional Health Concerns Assessment Noted Time PHQ-9 Depression Total Score: 3 03/28/20 24 1:17 PM EST documented as of this encounter Care Teams Data Warehousing Architect Relationship Specialty Start Date End Date Corey Monsalve MD [address] [place] [address] PCP - General Internal Medicine 12/14/13 documented as of this encounter
--- OUTSIDE RECORDS SUMMARY | 2024-06-08 10:56 | XMS_ITS | Encounter Summary ---
Author Organization [employer] Address [address] [place] [address] 7t [place] [address] Care Team Providers Care Blow Torch Burner Name Role Phone Corey Monsalve MD Primary Care Provide r Encounter Details Date Type Department Care Team (Late st Contact Info) Description 08/31/2022 Orders Only [facility] CH[facility] MED & PEDS [address] [place] [address] Lina Harrell LPN Social History Tobacco Use Types Packs/Day Years Used Date Smoking Tobacco: Never Smokeless Tobacco: Never Depression Answer Date Recorded Patient Health Questionnaire-9 Score 0 05/19/2022 Depression Answer Date Recorded Patient Health Questionnaire-2 Score 0 05/19/2022 Sex and Gender Information Value Date Recorded Sex Assigned at Male 03/09/2022 10:17 AM EDT Legal Sex Male 10:17 AM EDT Gender Identity Male 03/09/2022 10:17 AM EDT Sexual Orientation Straight 03/09/2022 10 :17 AM EDT COVID-19 Exposure Response Date Recorded In the last 10 days, have yo u been in contact with someone who was confirmed or suspected to have Coronavirus/COVID-19? No / Unsure 08/04/2022 9:16 AM EDT documented as of this encounter Plan of Treatment Upcoming Encounters Date Type Department Care Team (Late st Contact Info) Description 07/14/2024 10:00 AM EST Clinical Support [facility] MEDICINE [address] [place] [address] Vidhya Dickson, RN 505 [place] [address] 08/01/2024 9:00 AM EDT Office Visit [facility] [address] [facility] [place] [address] Corey Monsalve MD [address] [facility] [place] [address] documented as of this encounter Visit Diagnoses Not on filedocumented in this encounter Additional Health Concerns Assessment Noted Time PHQ-9 Depression Total Score: 0 05/19/19 23 2:29 PM EST documented as of this encounter Care Teams Blow Torch Burner Relationship Specialty Start Date End Date Corey Monsalve MD [address] [place] [address] PCP - General Internal Medicine 12/14/13 documented as of this encounter
--- OUTSIDE RECORDS SUMMARY | 2024-06-08 10:56 | XMS_ITS | Encounter Summary ---
Author Organization [employer] Address 75 [facility] 7t [place] [address] Care Team Providers Care Nuclear Officer Name Role Phone Corey Monsalve MD Primary Care Provide r Reason for Visit * Reason Comments Med Refill Encounter Details Date Type Department Care Team (Late st Contact Info) Description 11/05/[address] [facility] CHC MED & PEDS [address] [place] [address] Corey Monsalve MD 230 [place] [address] Chronic low back pain, unspecified back pain [...] Description 07/14/2024 10:00 AM EST Clinical [address] [facility] MEDICINE [address] [place] [address] Vidhya Dickson RN 505 [place] [address] 08/01/2024 9:00 AM EDT Office Visit [facility] [address] [place] [address] Corey Monsalve MD [address] [place] [address] documented as of this encounter Visit Diagnoses Diagnosis Chronic low back pain, unspecified back pain laterality, unspecified whether sciatica present documented in this encounter Additional Health Concerns Assessment Noted Time PHQ-9 Depression Total Score: 11 024 10:15 AM EST documented as of this encounter Care Teams Nuclear Officer Relationship Specialty Start Date End Date Corey Monsalve MD [address] [place] [address] PCP - General Internal Medicine 12/14/13 documented as of this encounter
--- OUTSIDE RECORDS SUMMARY | 2024-06-08 10:56 | XMS_ITS | Encounter Summary ---
Author Organization [employer] Address 75 [facility] 7t [place] [address] Care Team Providers Care Dry Box Operator Name Role Phone Corey Monsalve MD Primary Care Provide r Reason for Visit * Reason Comments Med Refill Encounter Details Date Type Department Care Team (Late st Contact Info) Description 08/13/2023 Refill [facility] MED[facility]INE 230 [place] [address] Corey Monsalve MD 230 [place], [place] [phone] Social History Tobacco Use Types Packs/Day Years [...] 10:00 AM EST Clinical Support [facility] MEDICINE [address] [place] [address] Vidhya Dicskon RN 505 [place] [address] 08/01/2024 9:00 AM EDT Office Visit [facility] [address] [place] [address] Corey Monsalve MD [address] [place] [address] documented as of this encounter Visit Diagnoses Not on filedocumented in this encounter Additional Health Concerns Assessment Noted Time PHQ-9 Depression Total Score: 11 024 10:15 AM EST documented as of this encounter Care Teams Dry Box Operator Relationship Specialty Start Date End Date Corey Monsalve MD [address] [place] [address] PCP - General Internal Medicine 12/14/13 documented as of this encounter
--- OUTSIDE RECORDS SUMMARY | 2024-06-08 10:56 | XMS_ITS | Encounter Summary ---
Author Organization [employer] Address 75 [facility] 7t [place] [address] Care Team Providers Care Mercury Purifier Name Role Phone Corey Monsalve MD Primary Care Provide r Reason for Visit * Reason Comments Med Refill Encounter Details Date Type Department Care Team (Late st Contact Info) Description 05/30/2024 Refill [facility] CHC MED & PEDS [address] [place], [place] [phone] Corey Monsalve MD 230 [place] [address] Chronic low back pain, unspecified back pain [...] encounter Miscellaneous Notes * Telephone Encounter - Camila Finnegan RN - 05/30/2024 4:26 PM EST CIVIL ENGINEERING TECHNICIAN checked. Pt last picked up 28 day supply of oxycodone 05/02/24. Earliest fill date is today 05/30/24. Saw BOWLING TEACHER 04/21/24. Refill appropriate. Queued. documented in this encounter Plan of Treatment Upcoming Encounters Date Type Department Care Team (Late st Contact Info) Description 07/14/2024 10:00 AM EST Clinical Support [facility] MED[facility]INE [address] [place] [address] Vidhya Dickson RN 505 [place] [address] 08/01/2024 9:00 AM EDT Office Visit [facility] [address] [place] [address] Corey Monsalve MD [address] [place] [address] documented as of this encounter Visit Diagnoses Diagnosis Chronic low back pain, unspecified back pain laterality, unspecified whether sciatica present documented in this encounter Additional Health Concerns Assessment Noted Time PHQ-9 Depression Total Score: 3 03/28/20 24 1:17 PM EST documented as of this encounter Care Teams Mercury Purifier Relationship Specialty Start Date End Date Corey Monsalve MD 230 [place] [address] PCP - General Internal Medicine 12/14/13 documented as of this encounter
--- OUTSIDE RECORDS SUMMARY | 2024-06-08 10:56 | XMS_ITS | Encounter Summary ---
Author Organization [employer] Address 75 [facility] 7 [place] [address] Care Team Providers Care Antique Furniture Restorer Name Role Phone Corey Monsalve MD Primary Care Provide r Reason for Visit * Reason Comments Med Refill Encounter Details Date Type Department Care Team (Late st Contact Info) Description 05/24/2024 Refill [facility] CHC MED & PEDS [address] [place] [address] Michelle Vargas MD 230 [place] [address] Chronic low back pain, unspecified back pain [...] EST Clinical Support [facility] MEDICINE [address] [place] [address] Vidhya Dickson, TEODORA 505 [place] [address] 08/01/2024 9:00 AM EDT Office Visit [facility] [address] [place] [address] Corey Monsalve MD [address] [place] [address] documented as of this encounter Visit Diagnoses Diagnosis Chronic low back pain, unspecified back pain laterality, unspecified whether sciatica present documented in this encounter Additional Health Concerns Assessment Noted Time PHQ-9 Depression Total Score: 3 03/28/20 24 1:17 PM EST documented as of this encounter Care Teams Antique Furniture Restorer Relationship Specialty Start Date End Date Corey Monsalve MD [address] [place] [address] PCP - General Internal Medicine 12/14/13 documented as of this encounter
--- OUTSIDE RECORDS SUMMARY | 2024-06-08 10:56 | XMS_ITS | Encounter Summary ---
Author Organization [employer] Address 75 [facility] 7t [place] [address] Care Team Providers Care Survey Statistician Name Role Phone Corey Monsalve MD Primary Care Provide r Reason for Visit * Reason Comments Med Refill Encounter Details Date Type Department Care Team (Late st Contact Info) Description 05/24/2024 Refill [facility] CH[facility] MED & PEDS [address] [place], [place] [phone] Corey Monsalve MD 230 [place] [address] Type 2 diabetes mellitus without complication, with long-term current use of insulin (CMS/[facility]); Chronic low back pain, unspecified back pain [...] is your housing situation today? I have preciousvannessa mcdermott 06/18/[address] you [...] Description 07/14/2024 10:00 AM EST Clinical Support [facility] MEDICINE [address] [place] [address] Vidhya Dickson RN 505 [place] [address] 08/01/2024 9:00 AM EDT Office Visit [facility] MEDICINE [address] [place] [address] Corey Monsalve MD [address] [place] [address] documented as of this encounter Visit Diagnoses Diagnosis Type 2 diabetes mellitus without complication, with long-term current use of insulin ([facility]) Chronic low back pain, unspecified back pain laterality, unspecified whether sciatica present documented in this encounter Additional Health Concerns Assessment Noted Time PHQ-9 Depression Total Score: 3 03/28/20 24 1:17 PM EST documented as of this encounter Care Teams Survey Statistician Relationship Specialty Start Date End Date Corey Monsalve MD [address] [place] [address] PCP - General Internal Medicine 12/14/13 documented as of this encounter
--- OUTSIDE RECORDS SUMMARY | 2024-06-08 10:56 | XMS_ITS | Encounter Summary ---
Author Organization [employer] Address 75 [facility] 7t [place] [address] Care Team Providers Care Hair Spring Winder Name Role Phone Corey Monsalve MD Primary Care Provide r Reason for Visit * Reason Comments Med Refill Encounter Details Date Type Department Care Team ([facility] st Contact Info) Description 03/21/2023 Refill [facility] MEDICINE [address] [place] [address] Corey Monsalve MD 230 [place], [place] [phone] Social History Tobacco Use Types Packs/Day Years Used Date Smoking Tobacco: Never Passive Smoke Exposure: Never Smokeless Tobacco: Never Depression Answer Date Recorded Patient Health Questionnaire-9 Score 0 05/19/2022 Housing Stability Answer Date Recorded What is your housing situation today? I have precious baldemar 02/24/[address] you li ve. Do you have problems with any of the following? None of the above 02/24/2023 Food Insecurity Answer Date Recorded Within the past 12 months, y ou worried that your food would run out before you got money to buy more: Never True 02/24/2023 Within the past 12 months,th e food you bought just didn't last and you didn't have enough money to get more: Never True Transportation Answer Date Recorded In the past 12 months, has l ack of transportation kept you from medical appts, meetings, work or from getting things needed for daily living? No 02/24/2023 Utilities Answer Date Recorded In the past 12 months, has t he electric, gas, oil or water company threatened to shut off services in your home? No 02/24/2023 Depression Answer Date Recorded Patient Health Questionnaire-2 [...] 07/14/2024 10:00 AM EST Clinical Support [facility] MEDICINE [address] [place] [address] Vidhya Dickson RN 505 [place] [address] 08/01/2024 9:00 AM EDT Office Visit [facility] MEDICINE [address] [place] [address] Corey Monsalve MD [address] [place] [address] documented as of this encounter Visit Diagnoses Not on filedocumented in this encounter Additional Health Concerns Assessment Noted Time PHQ-9 Depression Total Score: 0 05/19/19 23 2:29 PM EST documented as of this encounter Care Teams Hair Spring Winder Relationship Specialty Start Date End Date Corey Monsalve MD [address] [place] [address] PCP - General Internal Medicine 12/14/13 documented as of this encounter
--- OUTSIDE RECORDS SUMMARY | 2024-06-08 10:56 | XMS_ITS | Encounter Summary ---
Author Organization [email or web address] [facility] Address [address] [place] [address] 7 [place] [address] Care Team Providers Care Black Top Roller Name Role Phone Corey Monsalve MD Primary Care Provide r Encounter Details Date Type Department Care Team (Late st Contact Info) Description 07/31/2022 Orders Only [facility] CHC MED & PEDS [address] [place] [address] Lina Harrell LPN Social History Tobacco Use [...] Description 07/14/2024 10:00 AM EST Clinical Support [facility] MEDICINE 230 [place] [address] Vidhya Dickson RN 505 [place] [address] 08/01/2024 9:00 AM EDT Office Visit [facility] MEDICINE 230 [place] [address] Corey Monsalve MD 230 [place] [address] documented as of this encounter Visit Diagnoses Not on filedocumented in this encounter Additional Health Concerns Assessment Noted Time PHQ-9 Depression Total Score: 0 05/19/19 23 2:29 PM EST documented as of this encounter Care Teams Black Top Roller Relationship Specialty Start Date End Date Corey Monsalve MD 230 [place] [address] PCP - General Internal Medicine 12/14/13 documented as of this encounter
--- OUTSIDE RECORDS SUMMARY | 2024-06-08 10:57 | XMS_ITS | Encounter Summary ---
Author Organization [employer] Address 75 [facility] 7t [place] [address] Care Team Providers Care Federal Mediation Commissioner Name Role Phone Corey Monsalve MD Primary Care Provide r Reason for Visit * Reason Comments Med Refill Encounter Details Date Type Department Care Team (Late st Contact Info) Description 04/21/2024 Refill [facility] MEDICINE 230 [place] [address] Corey Monsalve MD 230 [place], [place] [phone] Social History Tobacco Use Types Packs/Day Years [...] Description 07/14/2024 10:00 AM EST Clinical Support [facility] MEDICINE [address] [place] [address] Vidhya Dickson RN 505 [place] [address] 08/01/2024 9:00 AM EDT Office Visit [facility] MEDICINE [address] [place] [address] Corey Monsalve MD [address] [place] [address] documented as of this encounter Visit Diagnoses Not on filedocumented in this encounter Additional Health Concerns Assessment Noted Time PHQ-9 Depression Total Score: 3 03/28/20 24 1:17 PM EST documented as of this encounter Care Teams Federal Mediation Commissioner Relationship Specialty Start Date End Date Corey Monsalve MD [address] [place] [address] PCP - General Internal Medicine 12/14/13 documented as of this encounter
--- OUTSIDE RECORDS SUMMARY | 2024-06-08 10:57 | XMS_ITS | Encounter Summary ---
Author Organization [employer] [facility] Address [address] [place] [address] 7 [place] [address] Care Team Providers Care Extrusion Utility Worker Name Role Phone Corey Monsalve MD Primary Care Provide r Reason for Visit * Reason Onset Date Comments Pa form 06/02/2022 Encounter Details Date Type Department Care Team ([facility] st Contact Info) Description 06/02/2022 Telephone [facility] MEDICINE 230 [place] [address] Corey Monsalve MD 230 [place] [address] Pa form Social History Tobacco Use Types Packs/Day Years [...] suspected to have Coronavirus/COVID-19? No / Unsure 05/19/2022 1:54 PM EST documented as of this encounter Miscellaneous Notes * Telephone Encounter - Camila Gaytan RN - 06/08/2022 2:32 PM EST Received PA form for Susna from PCP's assistant librarian. Handed to PA specialist to process. * Telephone Encounter - Shirley Plaza - 06/08/2022 12:52 PM EST PA for Susan initiated using medicare form * Telephone Encounter - Leslie Lizarraga - 06/02/2022 3:55 PM EST TC from pt stated need a Pa for Freestyle susan 2 sensor/reader. PCP DR. Montes documented in this encounter Plan of Treatment Upcoming Encounters Date Type Department Care Team (Late st Contact Info) Description 07/14/2024 10:00 AM EST Clinical Support [facility] MEDICINE [address] [place] [address] Vidhya Dickson RN 505 [place] [address] 08/01/2024 9:00 AM EDT Office Visit [address] [address] Corey Monsalve MD [address] [place] [address] documented as of this encounter Visit Diagnoses Not on filedocumented in this encounter Additional Health Concerns Assessment Noted Time PHQ-9 Depression Total Score: 0 05/19/19 23 2:29 PM EST documented as of this encounter Care Teams Extrusion Utility Worker Relationship Specialty Start Date End Date Corey Monsalve MD [address] [place] [address] PCP - General Internal Medicine 12/14/13 documented as of this encounter
--- OUTSIDE RECORDS SUMMARY | 2024-06-08 10:57 | XMS_ITS | Clinical Summary ---
Author Organization [employer] Address [address] [place] [address] Care Team Providers Care Forensic Accountant Name Role Phone Corey Monsalve MD Primary Care Provide r Allergies No known active allergies Medications naloxone (Narcan) 4 mg/0.1 mL nasal spray spray 0.1 milliliter by intranasal route in 1 nostril may repeat dose every 2-3 minutes as needed alternating nostrils with each dose 021 Active Chest Congestion Relief 100 MG/5ML liquidIndications :Acute cough TAKE 10 ML BY MOUTH EVERY 4 HOURS NEEDED 150 mL 023 Active Continuous Blood Gluc [employer] (FreeStyle Abhishek [address] [place]) deviceIndications :Type 2 diabetes mellitus without complication, with long-term current use of insulin ([facility]) Use daily 1 each 023 Active BD Insulin Syringe U/F 31G X 5/16 0.5 ML miscIndications:T ype 2 diabetes mellitus without complication, with long-term current use of insulin ([facility]) USE FOUR TIMES DAILY 120 each 11 023 Active Blood Glucose Monitoring Suppl (FreeStyle Lite) w/Device kitIndications:Ty pe 2 diabetes mellitus with hyperosmolarity without coma, with long-term current use of insulin ([facility]) 1 Device before breakfast and before evening meal. 1 kit 023 Active NovoLOG 100 UNIT/ML solution INJECT 4 TO 14 UNITS SUBCUTANEOUSLY THREE TIMES DAILY 10 mL 023 Active TRUEplus Lancets 33G miscIndications:T ype 2 diabetes mellitus with hyperosmolarity without coma, with long-term current use of insulin (CMS/[facility]) TEST BLOOD SUGAR FOUR TIMES DAILY 100 each 024 Active glucose blood (FREESTYLE LITE) test stripIndications: Type 2 diabetes mellitus with hyperosmolarity without coma, with long-term current use of insulin (CMS/HCC) TEST BLOOD SUGAR FOUR TIMES DAILY DIRECTED 100 strip 024 Active Aspirin Low Dose 81 MG EC tablet TAKE 1 TABLET BY MOUTH EVERY DAY 90 tablet 3 024 Active atorvastatin (Lipitor) 20 MG tablet TAKE 1 TABLET BY MOUTH ONCE DAILY 90 tablet 1 024 Active dulaglutide (Trulicity) 1.5 MG/0.5ML solution pen-injectorIndic ations:Type 2 diabetes mellitus without complication, with long-term current use of insulin ([facility]) Inject 1.5 mg under the skin 1 (one) time per week. 4 each 024 Active omega-3 (Fish Oil) 1000 MG capsuleIndication s:Mixed hyperlipidemia TAKE 1 CAPSULE BY MOUTH THREE TIMES DAILY 270 capsule 1 024 Active docusate sodium (Colace) 100 MG capsule TAKE 1 CAPSULE BY MOUTH EVERY DAY 90 capsule 024 Active cetirizine (ZyrTEC) 10 MG tabletIndications :Seasonal allergies TAKE 1 TABLET BY MOUTH EVERY DAY IN THE MORNING 90 tablet 024 Active Lantus 100 UNIT/ML injection INJECT 40 UNITS SUBCUTANEOUSLY TWICE DAILY IN THE MORNING AND IN THE EVENING 30 mL 1 024 Active zolpidem (Ambien) 10 MG tablet TAKE 1/2 TABLET BY MOUTH EVERY DAY AT BEDTIME 15 tablet 3 024 Active cyclobenzaprine (Flexeril) 10 MG tabletIndications :Chronic low back pain, unspecified back pain laterality, unspecified whether sciatica present TAKE 1 TABLET BY MOUTH THREE TIMES DAILY 30 tablet 3 024 Active Continuous Glucose Sensor (FreeStyle Abhishek 2 Sensor) miscIndications:T ype 2 diabetes mellitus without complication, with long-term current use of insulin ([facility]) USE DIRECTED DAILY. CHANGE EVERY 14 DAYS . 2 each 025 Active metFORMIN XR (Glucophage-XR) 500 MG 24 hr tabletIndications :Type 2 diabetes mellitus without complication, with long-term current use of insulin ([facility]) TAKE 2 TABLETS BY MOUTH TWICE DAILY IN THE MORNING AND IN THE EVENING WITH MEALS 120 tablet 3 025 Active ibuprofen 800 MG tabletIndications :Chronic low back pain, unspecified back pain laterality, unspecified whether sciatica present TAKE 1 TABLET BY MOUTH THREE TIMES DAILY WITH FOOD NEEDED 60 tablet 1 025 Active oxyCODONE (Roxicodone) 5 MG immediate release tabletIndications :Chronic low back pain, unspecified back pain laterality, unspecified whether sciatica present TAKE 1 TABLET BY MOUTH EVERY 6 HOURS NEEDED FOR SEVERE PAIN 112 tablet 025 Active Continuous Blood Gluc Sensor (FreeStyle Abhishek 2 Sensor) miscIndications:T ype 2 diabetes mellitus without complication, with long-term current use of insulin ([facility]) USE DIRECTED DAILY 2 each 023 2024 Discontinued metFORMIN XR (Glucophage-XR) 500 MG 24 hr tabletIndications :Type 2 diabetes mellitus without complication, with long-term current use of insulin ([facility]) TAKE 2 TABLETS BY MOUTH TWICE DAILY IN THE MORNING AND EVENING WITH MEALS 120 tablet 1 024 2024 Discontinued ibuprofen 800 MG tabletIndications :Chronic low back pain, unspecified back pain laterality, unspecified whether sciatica present TAKE 1 TABLET BY MOUTH THREE TIMES DAILY WITH FOOD NEEDED 60 tablet 1 024 2024 Discontinued( Reorder (will not trigger notification to Pharmacy)) oxyCODONE (Roxicodone) 5 MG immediate release tabletIndications :Chronic low back pain, unspecified back pain laterality, unspecified whether sciatica present Take 1 tablet (5 mg) by mouth every 6 (six) hours if needed for severe pain. 112 tablet 024 2024 Discontinued Active Problems Problem Noted Date Diagnosed Date Abnormal EKG 11/16/2023 Assessment & Plan (03/28/2024 1:42 PM EST): Previous EKG showed mild repolarization abnormalities, likely no specific, but given multiple risk factors was referred for outpatient stress test. Patient was seen 02/29/[address] saravia who recommended a dobutamine stress test and ECHO Assessment & Plan (11/16/2023 10:48 AM EDT): EKG today shows mild repolarization abnormalities, likely no specific, but given multiple risk factors will refer for outpatient stress test Nephrolithiasis 02/02/2023 Assessment & Plan (03/28/2024 1:43 PM EST): Seen at [facility] (01/09/2023) with c/o back pain and intermitent hematuria. CT showed nephrolithiasis. Treated with Flomax and referred to Dr Chandler rain Urology pt last seen 11/22/2023. Assessment & Plan (11/16/2023 10:35 AM EDT): Seen at [facility] (01/09/2023) with c/o back pain and intermitent hematuria. CT showed nephrolithiasis. Treated with Flomax and referred to Dr Chandler rain Urology pt last seen 03/2023. Pt tells me he has a follow up with him the 16 of this month Assessment & Plan (06/29/2023 9:58 AM EST): Recently seen at [facility] (01/09/2023) with c/o back pain and intermitent hematuria. CT showed nephrolithiasis. Treated with Flomax and referred to Dr Chandler rain Urology pt initially seen 02/12/2023 and subsequently in 03/2023 6 month follow up was recommended Assessment & Plan (02/02/2023 10:11 AM EDT): Recently seen at [facility] (01/09/2023) with c/o back pain and intermitent hematuria. CT showed nephrolithiasis. Treated with Flomax and referred to Dr Chandler rain Urology appointment scheduled for 02/12/2023 Benign prostatic hyperplasia with urinary freque ncy 05/19/2022 Assessment & Plan (03/28/2024 1:43 PM EST): S/p Laser prostatectomy by Dr Yoon Urologist 06/14/2018 with good results Seen by Dr rain 11/22/2023 Assessment & Plan (05/19/2022 2:56 PM EST): S/p Laser prostatectomy by Dr Yoon Urologist 06/14/2018 with good results Cystic kidney disease 05/19/2022 Assessment & Plan (05/19/2022 2:58 PM EST): Pt with a Hx. of microscopic hematuria Evaluated by Urology specialist at [facility] last seen in February 27 2011,underwent a cystoscopy 04/07/11 which was basically normal. There was an incidental finding of a right renal cyst for which a renal ultrasound was done on 01/01/12 that showed a complex right renal cyst for which a short term f/u was recommended at 6 months. This was done on 06/10/2012 and showed a stable 1.5 x 1.8 cm complex renal cyst as compared to previous scans from 2010. Repeat US on 12/2013 showed a stable 1.9 x 1.8 complex right renal cyst. Pt was seen by Urology on 10/03/2014 and they recommended to repeat the CT, CT was done on 10/10/2014 and showed: simple 2 cm right renal cyst, non obstructive right renal calculus no renal mass. He was then seen for f/u on 10/19/[address] Briceno who recommended NO further f/u History of retinal vein occlusion 05/19/2022 Assessment & Plan (11/16/2023 9:28 AM EDT): Under the care of Dr. Virgilio Genao retinal specialist Treated with Avastin Assessment & Plan (05/19/2022 2:58 PM EST): Under [facility] care of Dr. Virgilio Genao retinal specialist Treated with Avastin [facility] care 05/19/2022 Assessment & Plan (11/16/2023 9:26 AM EDT): Colonoscopy: Normal : 04/05/2013 [facility] Referred back for Colonoscopy Pt has expected appt with [facility] on 01/13/24 @11AM for Colon Cancer Screening. PSA 03/02/2023: Normal Assessment & Plan (06/29/2023 10:01 AM EST): Colonoscopy: Normal : 04/05/2013 [facility] [place] [place] Will refer back for Colonoscopy PSA 03/02/2023: Normal Assessment & Plan (05/19/2022 2:59 PM EST): Colonoscopy: Normal : 04/05/2013 [facility] [place] [place] Venous retinal branch occlusion 11/20/2014 Chronic low back pain 01/04/2012 Assessment & Plan (05/19/2022 2:55 PM EST): Pt is here for a f/u Has good days and bad days, but lately his pain has been bothering more than usual and has great difficulty performing his ADLs He has chronic low back pain He is on a regimen of Oxycodone 5 mg po q 6 hrs and ibuprofen 800 mg po q 8 hrs prn (See previous notes.) Previously pt requested to see Dr Slaughter again appointment was scheduled for06/17/2012.he was seen by another Dr (Dr Flores) who recommended to have a repeat MRI and plain x-rays . His impression was that tis was a case of symptomatic hardware and he recommended pt followed with one of their surgeons to consider hardware removal. Pt was seen by Dr Castillo Lott on `3 who did not recommend hardware removal. and thought his pain was mainly myofascial. He recommended to consider steroid injections and PT but pt declined injections given his DM and accepted PT alone. He is no longer under the care of the [facility]. Pt declines steroid injections. Pt finished a course of PT without improvement. Previously I recommended he be seen again at [facility] for re-evaluation given his ongoing chronic low back pain. Pt was offered steroid injections but he declined. Repeat MRI of LS spine 08/25/2017 showed post op and mild superimposed degenerative changes only continue current regimen. He might benefit from EXPLOSIVE OPERATOR services Hyperlipidemia 10/21/2011 Assessment & Plan (03/28/2024 1:43 PM EST): Pt here for a f/u Patient with elevated lipids. Most recent lipid profile from: 07/06/2023 shows Lab Results Component Value Date TRIG 117 07/06/2023 TRIG 54 10/01/2022 CHOL 120 07/06/2023 LDLCHOLCAL 60 07/06/2023 HDL 37 (L) 07/06/2023 Pt on Atorvastatin 20 mg po q pm and Fish oil 1000mg po TID. In the past Pravachol game him muscle pain and Lovastatin caused his LFT'S to go up. Plan: Continue current regimen. advised to try to adhere to a low cholesterol diet, counseled and educated about diet and exercise, Patient encouraged to come up with a personal goal for weight loss. Assessment & Plan (11/16/2023 9:26 AM EDT): Pt here for a f/u Patient with elevated lipids. Most recent lipid profile from: 07/06/2023 shows Lab Results Component Value Date TRIG 117 07/06/2023 TRIG 54 10/01/2022 CHOL 120 07/06/2023 LDLCHOLCAL 60 07/06/2023 HDL 37 (L) 07/06/2023 Pt on Atorvastatin 20 mg po q pm and Fish oil 1000mg po TID. In the past Pravachol game him muscle pain and Lovastatin caused his LFT'S to go up. Plan: Continue current regimen. advised to try to adhere to a low cholesterol diet, counseled and educated about diet and exercise, Patient encouraged to come up with a personal goal for weight loss. Assessment & Plan (06/29/2023 10:00 AM EST): Pt here for a f/u Patient with elevated lipids. Most recent lipid profile from: 10/01/2022 shows a total cholesterol of: 106 triglycerides of: 54 HDL of: 41 and LDL of: 52 Pt on Atorvastatin 20 mg po q pm and Fish oil 1000mg po TID. In the past Pravachol game him muscle pain and Lovastatin caused his LFT'S to go up. Plan: Continue current regimen, Repeat Lipid profile advised to try to adhere to a low cholesterol diet, counseled and educated about diet and exercise, Patient encouraged to come up with a personal goal for weight loss. Assessment & Plan (02/02/2023 10:06 AM EDT): Pt here for a f/u Patient with elevated lipids. Most recent lipid profile from: 10/01/2022 shows a total cholesterol of: 106 triglycerides of: 54 HDL of: 41 and LDL of: 52 Pt on Atorvastatin 20 mg po q pm and Fish oil 1000mg po TID. In the past Pravachol game him muscle pain and Lovastatin caused his LFT'S to go up. Plan: Continue current regimen advised to try to adhere to a low cholesterol diet, counseled and educated about diet and exercise, Patient encouraged to come up with a personal goal for weight loss. Assessment & Plan (09/22/2022 9:40 AM EDT): Pt here for a f/u Patient with elevated lipids. Most recent lipid profile from: 10/07/2021 shows a total cholesterol of: 127 triglycerides of: 74 HDL of: 40 and LDL of: 72 Pt on Atorvastatin 20 mg po q pm and Fish oil 1000mg po TID. In the past Pravachol game him muscle pain and Lovastatin caused his LFT'S to go up. plan: Repeat Lipid profile advised to try to adhere to a low cholesterol diet, counseled and educated about diet and exercise, Patient encouraged to come up with a personal goal for weight loss. Assessment & Plan (05/19/2022 2:48 PM EST): Pt here for a f/u Patient with elevated lipids. Most recent lipid profile from: 10/07/2021 shows a total cholesterol of: 127 triglycerides of: 74 HDL of: 40 and LDL of: 72 Pt on Atorvastatin 20 mg po q pm and Fish oil 1000mg po TID. In the past Pravachol game him muscle pain and Lovastatin caused his LFT'S to go up. plan: continue current regimen advised to try to adhere to a low cholesterol diet, counseled and educated about diet and exercise, Patient encouraged to come up with a personal goal for weight loss. Type 2 diabetes mellitus 10/21/2011 Assessment & Plan (03/28/2024 1:45 PM EST): Pt here for a f/u He is on a regimen of Lantus 40 in AM and 40 PM ( total dose of 80 ), Trulicity 1.5 once a week, Metformin XR 500 mg 2 tabs po BID and Humalog lispro sliding scale again po q pm. His Hgb A1c 03/28/2024: 6.6 Eye exam was last done on: 10/13/18 Although pt tells me he has a f/u appointment soon . He has also seen Dr. Virgilio Genao retinal specialist In the past he was treated for a retinal vein branch occlusion with Avastin Micro albumin checked on: 10/03/2023 was: 2.8 Pt is not on an JHONY inhibitor/ARB. Foot check risk of zero Pt reports compliance with Asa 81 mg po daily Plan: Continue current regimen f/u with me in 4 months Pt advised to: adhere to diabetic diet check your blood sugars regularly check your feet on a daily basis Assessment & Plan (11/16/2023 11:11 AM EDT): Pt here for a f/u Glucometer shows glucose fluctuating between 99-248 He is on a regimen of Lantus 40 in AM and 40 PM ( total dose of 80 ), Trulicity 0.75 once a week, Metformin XR 500 mg 2 tabs po BID and Humalog lispro sliding scale again po q pm. His Hgb A1c 11/16/2023: 7.9 from 7.0 Eye exam was last done on: 10/13/18 Although pt tells me he has a f/u appointment soon . He has also seen Dr. Virgilio Genao retinal specialist In the past he was treated for a retinal vein branch occlusion with Avastin Micro albumin checked on: 08/09/2020 was: 2.2 Pt is not on an JHONY inhibitor/ARB. Foot check risk of zero Pt reports compliance with Asa 81 mg po daily Plan: Increase Trulicity to 1.5 mg once a week f/u with me in 4 months Pt advised to: adhere to diabetic diet check your blood sugars regularly check your feet on a daily basis Assessment & Plan (06/29/2023 10:12 AM EST): Pt here for a f/u DM Controlled He is on a regimen of Lantus 40 in AM and 40 PM ( total dose of 80 ), Trulicity 0.75 once a week, Metformin XR 500 mg 2 tabs po BID and Humalog lispro sliding scale again po q pm. His Hgb A1c 06/29/2023: 7.0 Eye exam was last done on: 10/13/18 Although pt tells me he has a f/u appointment soon . He has also seen Dr. Virgilio Genao retinal specialist In the past he was treated for a retinal vein branch occlusion with Avastin Micro albumin checked on: 08/09/2020 was: 2.2 Pt is not on an JHONY inhibitor/ARB. Foot check risk of zero Pt reports compliance with Asa 81 mg po daily Plan: continue current regimen f/u with me in 4 months Pt advised to: adhere to diabetic diet check your blood sugars regularly check your feet on a daily basis Assessment & Plan (02/02/2023 2:37 PM EDT): Pt here for a f/u DM Controlled He is on a regimen of Lantus 40 in AM and 40 PM ( total dose of 80 ), Trulicity 0.75 once a week, Metformin XR 500 mg 2 tabs po BID and Humalog lispro sliding scale again po q pm. His Hgb A1c 09/22/2022: 6.4 Eye exam was last done on: 10/13/18 Although pt tells me he has a f/u appointment soon . He has also seen Dr. Virgilio Genao retinal specialist In the past he was treated for a retinal vein branch occlusion with Avastin Micro albumin checked on: 08/09/2020 was: 2.2 Pt is not on an JHONY inhibitor/ARB. Foot check risk of zero Pt reports compliance with Asa 81 mg po daily Plan: continue current regimen f/u with me in 4 months Pt advised to: adhere to diabetic diet check your blood sugars regularly check your feet on a daily basis Assessment & Plan (09/22/2022 10:30 AM EDT): Pt here for a f/u DM Controlled He is on a regimen of Lantus 40 in AM and 40 PM ( total dose of 80 ), Trulicity 0.75 once a week, Metformin XR 500 mg 2 tabs po BID and Humalog lispro sliding scale again po q pm. His Hgb A1c 09/22/2022 6.4 Eye exam was last done on: 10/13/18 Although pt tells me he has a f/u appointment soon . He has also seen Dr. Virgilio Genao retinal specialist In the past he was treated for a retinal vein branch occlusion with Avastin Micro albumin checked on: 08/09/2020 was: 2.2 Pt is not on an JHONY inhibitor/ARB. Foot check risk of zero Pt reports compliance with Asa 81 mg po daily Plan: continue current regfimen f/u with me in 4 months Pt advised to: adhere to diabetic diet check your blood sugars regularly check your feet on a daily basis Assessment & Plan (05/19/2022 2:42 PM EST): Pt here for a f/u DM improving He is on a regimen of Lantus 40 in AM and 40 PM ( total dose of 80 ), Trulicity 0.75 once a week, Metformin XR 500 mg 2 tabs po BID and Humalog lispro sliding scale again po q pm. His Hgb A1c 05/19/2021 was 7.3 Eye exam was last done on: 10/13/18 Although pt tells me he has a f/u appoinmtent soon . He has also seen Dr. Virgilio Genao retinal specialist In the past he was treated for a retinal vein branch occlusion with Avastin Microalbumin checked on: 08/09/2020 was: 2.2 Pt is not on an JHONY inhibitor/ARB. Foot check risk of zero Pt reports compliance with Asa 81 mg po daily Plan: continue current regimen Pt denies any Hx of Pancreatitis or Thyroid Carcinoma (family or otherwise) f/u with me in 8 weeks Pt advised to: adhere to diabetic diet check your blood sugars regularly check your feet on a daily basis Encounters Date Type Department Care Team Description 06/08/2024 Orders Only GENERIC EXTERNAL DATA DEPARTMENT Provider, Generic External Data 05/30/2024 Refill [facility] [address] [place] [address] Corey Monsalve MD Chronic low back pain, unspecified back pain laterality, unspecified whether sciatica present 05/24/2024 Refill [facility] [address] [place] [address] Michelle Vargas MD Chronic low back pain, unspecified back pain laterality, unspecified whether sciatica present 05/24/2024 Refill [facility] [address] [place] [address] Corey Monsalve MD Type 2 diabetes mellitus without complication, with long-term current use of insulin ([facility]); Chronic low back pain, unspecified back pain laterality, unspecified whether sciatica present 05/22/2024 Refill [facility] [address] [place] [address] Corey Monsalve MD Type 2 diabetes mellitus without complication, with long-term current use of insulin ([facility]) 05/19/2024 Orders Only [facility] External Provider, [facility] 05/04/2024 Refill [facility] [address] [place] [address] Corey Monsalve MD Chronic low back pain, unspecified back pain laterality, unspecified whether sciatica present 05/01/2024 Telephone [facility] [address] [place] [address] Corey Monsalve MD Med Refill 05/01/2024 Refill [facility] [address] [place] [address] Corey Monsalve MD Chronic low back pain, unspecified back pain laterality, unspecified whether sciatica present 04/21/2024 10:00 AM EST Clinical Support [facility] [address] [place] [address] Vidhya Dickson RN Chronic low back pain, unspecified back pain laterality, unspecified whether sciatica present 04/21/2024 Travel 04/21/2024 Refill [facility] [address] [place] [address] Corey Monsalve MD 04/13/2024 Refill [facility] [address] [place] [address] Corey Monsalve MD Chronic low back pain, unspecified back pain laterality, unspecified whether sciatica present 04/03/2024 Refill [facility] [address] [place] [address] Vidhya Dicksno RN Chronic low back pain, unspecified back pain laterality, unspecified whether sciatica present; Type 2 diabetes mellitus without complication, with long-term current use of insulin ([facility]/HCC) 04/03/2024 Telephone [facility] [address] [place] [address] Corey Monsalve MD Med Refill 03/28/2024 1:15 PM EST Office Visit [facility] [address] [place], [place] [id number] Corey Monsalve MD Type 2 diabetes mellitus without complication, with long-term current use of insulin (CMS/[facility]) (Primary Dx); Mixed hyperlipidemia; Abnormal EKG; Nephrolithiasis; Benign prostatic hyperplasia with urinary frequency; Encounter for immunization 03/28/2024 Travel 03/20/2024 Telephone [facility] [address] [place] [address] Corey Monsalve MD Chart Prep from Last 3 Months Immunizations Name Administration Dates Next Due Hep A, Adult 08/19/2017 Influenza injectable quadriv alent IIV4 with preservative 02/15/2018,04/20/2017,02/26/2015 Influenza injectable quadriv alent preservative free 02/02/2023,03/11/2022,03/01/2020,03/16 Influenza, IIV3, injectable 04/12/2014, 1 Influenza, Split (incl. jackson fied surface antigen) 06/02/2012 Influenza, seasonal, injecta ble, preservative free 03/28/2024 Solvate SARS-CoV-2 Vaccination 07/24/2020 Pfizer Covid-19 Vaccine 12+ 03/28/2024, 1 Pneumococcal Polysaccharide PPSV23 12/17/2005 TD (adult), 2 Lf tetanus tox oid, preservative free, adsorbed 04/02/2004 Tdap 06/21/2014 Social History Tobacco Use Types Packs/Day Years Used Date Smoking Tobacco: Never Passive Smoke Exposure: Never Smokeless Tobacco: Never Tobacco Cessation:Counseling Given: Not Answered Depression Answer Date Recorded Patient Health Questionnaire-9 [...] Orientation Straight 03/09/2022 10 :17 AM EDT Last Filed Vital Signs Vital Sign Reading Time Taken Comments Blood Pressure 123/77 03/28/2024 1:16 PM EST Pulse 94 03/28/2024 1:16 PM EST Temperature 36.1 ??C (96.9 ??F) 03/28/2024 1:16 PM ES T Respiratory Rate 20 03/28/2024 1:16 PM EST Oxygen Saturation 99% 03/28/2024 1:16 PM EST Inhaled Oxygen Concentration - - Weight 91.6 kg (202 lb) 03/28/2024 1:16 PM EST Height 175.3 cm (5' 9 ) 03/28/2024 1:16 PM EST Body Mass Index 29.83 03/28/2024 1:16 PM EST Plan of Treatment Upcoming Encounters Date Type Department Care Team (Late st Contact Info) Description 07/14/2024 10:00 AM EST Clinical Support [facility] [address] [place] [phone] Vidhya Dickson RN [address] [place] [address] 08/01/2024 9:00 AM EDT Office Visit [facility] [address] [place] [phone] Corey Monsalve MD [address] [place] [address] Health Maintenance Due Date Last Done Comments CT Colonography 1959 FIT DNA/Cologuard 1959 FIT 1959 FOBT 1959 Sigmoidoscopy 1959 Diabetes: Foot Exam 1969 Eye Exam 1969 Pneumococcal Vaccine: Pediatrics (0 to 5 Years) and At-Risk Patients (6 to 49) Years) (2 of 2 - PCV) 12/17/2006 12/17/2005 Zoster Vaccines (1 of 2) 2009 RSV Patients and Patients Aged 60 years or older (1 - Risk 60-74 years 1-dose series) 2019 Colonoscopy 04/05/2023 04/05/2013 Colorectal Cancer Screening 04/05/2023 SDOH Screening 06/18/2024 06/18/2023 DTaP/Tdap/Td Vaccines (2 - Td or Tdap) 06/21/2024 06/21/2014, 04/02/2004 Diabetes: Hemoglobin A1C 09/25/2024 024, 11/16/2023, 06/29/2023, Additional history exists Alcohol/Substance Use Screening 03/28/2025 03/28/2024 Depression Screening 03/28/2025 03/28/2024, 03/28/20 Tobacco Screening 03/28/2025 03/28/2024 Diabetes: Urine Protein Screening 04/11/2025 04/11/2024, 10/01/2022, 10/07/2021, Additional history exists Lipid Panel 04/11/2025 04/11/2024, 06/11, 10/01/2022, Additional history exists Hepatitis A Vaccines Aged Out 08/19/2017 No long er eligible based on patient's age to complete this topic HIV Screening Completed 10/01/2022 Hepatitis C Screening Completed 10/01/2022, 022 COVID-19 Vaccine Completed 03/28/2024, , 07/24/2020 Influenza Vaccine Completed 03/28/2024, , 03/11/2022, Additional history exists HIB Vaccines Aged Out No longer eligi ble based on patient's age to complete this topic HPV Vaccines Aged Out No longer eligi ble based on patient's age to complete this topic Hepatitis B Vaccines Aged Out No long er eligible based on patient's age to complete this topic IPV Vaccines Aged Out No longer eligi ble based on patient's age to complete this topic Meningococcal Vaccine Aged Out No jaylan ralph eligible based on patient's age to complete this topic RSV under 20 months Aged Out No longe r eligible based on patient's age to complete this topic Rotavirus Vaccines Aged Out No longer eligible based on patient's age to complete this topic Procedures Procedure Name Priority Date/Time Associated Diagnosis Comments PSA, TOTAL Routine 06/08/2024 8:13 AM EST BASIC METABOLIC PANEL Routine 06/08/2024 8:13 AM EST US RENAL BI Routine 05/22/2024 1:01 PM EST POCT MAINOR-14 URINE DRUG SCREEN Routine 04/21/2024 10:13 AM EST Chronic low back pain, unspecified back pain laterality, unspecified whether sciatica present ALBUMIN, RANDOM URINE W/CREATININE Routine 04/11/2024 10:48 AM EST Type 2 diabetes mellitus without complication, with long-term current use of insulin (CMS/HCC) LIPID PANEL, STANDARD Routine 04/11/2024 10:48 AM EST Mixed hyperlipidemia COMPREHENSIVE METABOLIC PANEL Routine 04/11/2024 10:48 AM EST Type 2 diabetes mellitus without complication, with long-term current use of insulin (CMS/HCC) POCT GLYCATED HEMOGLOBIN, TOTAL Routine 03/28/2024 1:21 PM EST Type 2 diabetes mellitus without complication, with long-term current use of insulin (CMS/HCC) POCT GLUCOSE Routine 03/28/2024 1:18 PM EST Type 2 diabetes mellitus without complication, with long-term current use of insulin (CMS/HCC) HEPATITIS C AB W/REFL TO HCV RNA, QN, PCR Routine 10/01/2022 8:10 AM EDT Type 2 diabetes mellitus without complication, with long-term current use of insulin (CMS/HCC) HIV 1/2 ANTIGEN/ANTIBODY, FOURTH GENERATION W/RFL Routine 10/01/2022 8:10 AM EDT Type 2 diabetes mellitus without complication, with long-term current use of insulin (CMS/HCC) HM COLONOSCOPY Routine 04/05/2013 from Last 3 Months or Most Recently Relevant to Health Maintenance Results * PSA,Total (06/08/2024 8:13 AM EST) Prostate Specific Antigen 0.19 <0.05 - 4.0 ng/mL [facility] Comment:PSA methodology: Cece Knight i ChemiluminescentMicroparticle Immunoassay (CMIA) 06/08/2024 8:13 AM EST 06/08/2024 8:13 AM EST us Generic External Data Provider LAB BLOOD ORDERAB LES Final Result [facility] [address] [place] [phone] [phone] * (ABNORMAL) Basic Metabolic Panel (06/08/2024 8:13 AM EST) Sodium 143 135 - 145 mmol/L [facility] Potassium 4.5 3.3 - 5.1 mmol/L [facility] Chloride 111(H) 96 - 108 mmol/L [facility] Carbon Dioxide 27 22 - 29 mmol/L [facility] Anion Gap 10(L) 12 - 20 [facility] Urea Nitrogen (BUN) 16 9 - 16 mg/dL [facility] Creatinine, Serum 0.78 0.5 - 1.4 mg/dL [facility] Estimated Glomerular Filt Rate >60 [facility] Comment:Chronic Kidney Disea se: Estimated GFR < 60 mL/min/1.39g1Esfozt Kidney Disease: Estimated GFR < 15 mL/min/1.73m2 Glucose 161(H) 60 - 115 mg/dL [facility] Calcium 9.1 8.4 - 10.2 mg/dL [facility] 06/08/2024 8:13 AM EST 06/08/2024 8:13 AM EST us Generic External Data Provider LAB BLOOD ORDERAB LES Final Result [facility] [address] [place] [address] [phone] * US RENAL BI (05/22/2024 1:01 PM EST) Anatomical Region Laterality Modality Abdomen Ultrasound 05/22/2024 1:01 PM EST Narrative 05/22/2024 1:02 PM EST ? [facility] ?[address] ?[place]ah [place] [address] ? Ultrasound Report ? Signed ? Patient: Khan Martinez,Tex ?MR# ?? : [id number] ? : 1960 ?Acct:[id number] ? Age/Sex: 63 / M ?ADM Date: 01/10/25 ? Loc: HO.US ? Attending Dr: Sondra Toney ONCOLOGY PATIENT NAVIGATOR-BC ? Ordering Physician: Sondra Toney ONCOLOGY PATIENT NAVIGATOR-BC ?? Date of Service: 05/19/24 ?? Procedure(s): US renal BI ?? Accession Number(s): [id number] ? cc: Corey Spears MD; Sondra Toney ONCOLOGY PATIENT NAVIGATOR-BC ? CLINICAL HISTORY: N20.0 - Calculus of [...] DD/ 1301 ? TD/TT: 05/22/24 1301 ? Tensile Tester: ? Procedure Note Donotbrodyter, Image - 05/22/2024 [place] [id number] Ultrasound Report Signed Patient: Tex AlstonMR# : [id number] : 1960Acct:[id number] Age/Sex: 63 / MADM Date: 05/19/24 Loc: HO.US Attending Dr: Sondra SERRANO Ordering Physician: Sondra Toney Date of Service: 05/19/24 Procedure(s): US renal BI Accession Number(s): [id number] cc: Corey Spears MD; Sondra Toney CLINICAL [...] 05/22/24 1302 DD/ 1301 TD/TT: 05/22/24 1301 Tensile Tester: [facility] External Provider IMG US PROCEDURES Edited Result - Final * POCT MAINOR-14 Urine Drug Screen (04/21/2024 10:13 AM EST) Pathologist [facility] Oxycodone Screen, Urine Positive Urine Urine specimen obtained by clean catch procedure / Unknown 04/21/2024 10:13 AM EST Narrative Vidhya Dickson RN - 04/21/2024 10:13 AM EST .UTOX cup Lot#[id number] Exp. 02/01/26 Internal Pass Control Result [facility] Corey Sung MD POINT OF CARE TEST EN TER/EDIT ORDERABLES Final Result * Albumin, Random Urine W/Creatinine (04/11/2024 10:48 AM EST) Pathologist [facility] Creatinine, Urine 123.28 mg/dL [facility] Microalbumin Urine 24.0 mg/L [facility] Microalbum Creatinine Ratio Ur 19.4 <30 ug/mg cr [facility] Comment:Albumin/Creatinine R atio Reference Ranges: Normal: < 30 ug/mg creatinine Microalbuminuria: 30 - 300 ug/mg creatinineClinical Albuminuria: > 300 ug/mg creatinine Urine (Urine, Random) 04/11/2024 10:48 AM EST 04/11/2024 11:41 AM EST Result [facility] Corey Sung MD LAB URINE ORDERABLES Final Result [facility] [address] [place] [phone] * (ABNORMAL) Lipid Panel, Standard (04/11/2024 10:48 AM EST) Triglycerides 282(H) <150 mg/dL [facility] Comment:Desirable Triglyceri de: less than 150 mg/dLBorderline High Triglyceride 150-199 mg/dLHigh Triglyceride: 200-499 mg/dLVery High Triglyceride: greater than or equal to 5OO mg/dL Cholesterol 199 <200 mg/dL [facility] Comment:Desirable Cholestero l: less than 200 mg/dLBorderline High Cholesterol: 200-239 mg/dLHigh Cholesterol: greater than 239 mg/dL LDL Cholesterol Calculated 104(H) <100 mg/dL [facility] Comment:Desirable LDL: less than 100 mg/dLNear Optimal/Above Optimal LDL: 110- 129 mg/dLBorderline High LDL: 130-159 mg/dLHigh LDL: 160-189 mg/dLVery High LDL: greater than or equal to 190 mg/dL HDL Cholesterol 39(L) >40 mg/dL [facility] Comment:Desirable HDL: great er than 40 mg/dL Note: This HDL assay may give artificially low results in patients with liver disease. Blood Venous blood specimen / Unknown 04/11/2024 10:48 AM EST 04/11/2024 12:58 PM EST us Corey Sung MD LAB BLOOD ORDERABLES Final Result [facility] [address] [place] [phone] * (ABNORMAL) Comprehensive Metabolic Panel (04/11/2024 10:48 AM EST) Sodium 140 135 - 145 mmol/L [facility] Potassium 4.2 3.3 - 5.1 mmol/L [facility] Comment:Slight Hemolysis.Int erpret result with caution. Chloride 109(H) 96 - 108 mmol/L [facility] Carbon Dioxide 25 22 - 29 mmol/L [facility] Anion Gap 10(L) 12 - 20 [facility] Urea Nitrogen (BUN) 17(H) 9 - 16 mg/dL [facility] Creatinine, Serum 0.86 0.5 - 1.4 mg/dL [facility] Estimated Glomerular Filt Rate >60 [facility] Comment:Chronic Kidney Disea se: Estimated GFR < 60 mL/min/1.17r5Fplobm Kidney Disease: Estimated GFR < 15 mL/min/1.73m2 Glucose 188(H) 60 - 115 mg/dL [facility] Calcium 8.8 8.4 - 10.2 mg/dL [facility] Bilirubin, Total 0.6 0.0 - 1.0 mg/dL [facility] Aspartate Amino Transferase 53(H) 5 - 37 U/L [facility] Comment:Slight Hemolysis.Int erpret result with caution. Alanine Aminotransferase 86(H) 0 - 40 U/L [facility] Total Protein 7.7 6.5 - 8.0 g/dL [facility] Albumin Level 4.4 3.5 - 5.0 g/dL [facility] Alkaline Phosphatase 62 39 - 117 U/L [facility] Blood Venous blood specimen / Unknown 04/11/2024 10:48 AM EST 04/11/2024 12:58 PM EST Corey Sung MD LAB BLOOD ORDERABLES Final Result Performing Organization Address City/State/[facility] Co de Phone Number [facility] [address] [place] [phone] * (ABNORMAL) POCT HGB A1C (03/28/2024 1:21 PM EST) Hemoglobin A1C 6.6(A) 4.0 - 6.0 % QC Media Lot # [id number] Lot# Expiration Date [id number] Blood 03/28/2024 1:21 PM EST Corey Sung MD POINT OF CARE TEST EN TER/EDIT ORDERABLES Final Result * POCT Glucose (03/28/2024 1:18 PM EST) Glucose Blood, POC 199 60 - 200 mg/dL QC Media Lot # [id number] Lot# Expiration Date Blood Capillary blood specimen / Unknown 03/28/2024 1:18 PM EST Result [facility] Corey Sung MD POINT OF CARE TEST EN TER/EDIT ORDERABLES Final Result * Hepatitis C Antibody with Reflex to HCV, RNA, Quantitative, Real-Time PCR (10/01/2022 8:10 AM EDT) Pathologist [facility] Hepatitis C Antibody NON-REACT FAM NON-REACT FAM [facility] Index 0.06 <1.00 [facility] Comment: HCV antibody was non-reactive. There is no laboratory evidence of HCV infection. In most cases, no further action is required. However, if recent HCV exposure is suspected, a test for HCV RNA (test code 94360) is suggested. For additional information please refer to http://education.Startpack/faq/UEY81w2 (This link is being provided for informational/ educational purposes only.) Blood Venous blood specimen / Unknown 10/01/2022 8:10 AM EDT 10/01/2022 8:10 AM EDT Narrative [facility] - 10/02/2022 5:11 PM EDT FASTING:YES FASTING: YES Result [facility] Corey Sung MD LAB BLOOD ORDERABLES Final Result [facility] [address], [place] [phone] [facility] [address] [place] [phone] * HIV-1/2 Antigen and Antibodies, Fourth Generation, with Reflexes (10/01/2022 8:10 AM EDT) [facility] HIV Antigen/Antibody, 4th Generation NON-REAC TIVE NON-REAC TIVE [facility] Comment: HIV-1 antigen and HIV-1/HIV-2 antibodies were not detected. There is no laboratory evidence of HIV infection. PLEASE NOTE: This information has been disclosed to you from records whose confidentiality may be protected by state law. ??If your state requires such protection, then the state law prohibits you from making any further disclosure of the information without the specific written consent of the person to whom it pertains, or as otherwise permitted by law. A general authorization for the release of medical or other information is NOT sufficient for this purpose. ?? For additional information please refer to http://education.Startpack/faq/XQB744 (This link is being provided for informational/ educational purposes only.) The performance of this assay has not been clinically validated in patients less than 2 years old. Blood Venous blood specimen / Unknown 10/01/2022 8:10 AM EDT 10/01/2022 8:10 AM EDT Narrative [facility] - 10/02/2022 5:11 PM EDT FASTING:YES FASTING: YES Corey Sung MD LAB BLOOD ORDERABLES Final Result [facility] [address], [place] [phone] [facility] [address] [place] [address] * Colonoscopy (04/05/2013) Colonoscopy Normal Normal 04/05/2013 Yee Hendrickson - 04/05/2013 10:55 AM EST Recommended 10 year follow up ( see scanned notes) Historical Provider HEALTH MAINTENANCE Edited Result - Final from Last 3 Months or Most Recently Relevant to Health Maintenance [place] [address] [place] [address] - [employer] Care Teams Forensic Accountant Relationship Specialty Start Date End Date Corey Monsalve MD [address] [place] [phone] PCP - General Internal Medicine 12/14/13
--- OUTSIDE RECORDS SUMMARY | 2024-06-08 10:57 | XMS_ITS | Encounter Summary ---
Author Organization [employer] [facility] Address [address] [place] [address] 7 [place] [address] Care Team Providers Care Automotive Service Cashier Name Role Phone Corey Monsalve MD Primary Care Provide r Encounter Details Date Type Department Care Team (Late st Contact Info) Description 05/13/2022 Orders Only [facility] MED & PEDS [address] [place] [address] Lina Harrell LPN Social History Tobacco Use Types Packs/Day Years Used Date Smoking Tobacco: Never Assessed Sex and Gender Information Value Date Recorded Sex Assigned at Male 03/09/2022 10:17 AM EDT Legal Sex Male 10:17 AM EDT Gender Identity Male 03/09/2022 10:17 AM EDT Sexual Orientation Straight 03/09/2022 10 :17 AM EDT documented as of this encounter Plan of Treatment Upcoming Encounters Date Type Department Care Team (Late st Contact Info) Description 07/14/2024 10:00 AM EST Clinical Support [facility] [address] [place] [address] Vidhya Dickson, RN [address] [place] [address] 08/01/2024 9:00 AM EDT Office Visit [facility] [address] [place] [address] Corey Monsalve MD [address] [place] [address] documented as of this encounter Visit Diagnoses Not on filedocumented in this encounter Care Teams Automotive Service Cashier Relationship Specialty Start Date End Date Corey Monsalve MD [address] [place] [phone] PCP - General Internal Medicine 12/14/13 documented as of this encounter
--- OUTSIDE RECORDS SUMMARY | 2024-06-08 10:57 | XMS_ITS | Encounter Summary ---
Author Organization [employer] Address [address] [facility] 7t [place] [address] Care Team Providers Care Cap Inspector Name Role Phone Corey Monsalve MD Primary Care Provide r Reason for Visit * Reason Onset Date Comments Med Refill 04/03/2024 Encounter Details Date Type Department Care Team ([facility] st Contact Info) Description 04/03/2024 Telephone [facility] [address] [place] [address] Corey Monsalve MD [address] [place] [address] Med Refill Social History Tobacco Use Types Packs/Day Years [...] encounter Miscellaneous Notes * Telephone Encounter - Alexander Elizabeth - 04/03/2024 11:22 AM EST TC from pt requesting medication refill. Medications needing refill: oxyCODONE (Roxicodone) 5 MG immediate release tablet To be sent to: [facility] - [place], [place] - [address] [place] [address] documented in this encounter Plan of Treatment Upcoming Encounters Date Type Department Care Team (Late st Contact Info) Description 07/14/2024 10:00 AM EST Clinical Support [facility] [address] [place] [phone] Vidhya Dickson RN [address] [place] [address] 08/01/2024 9:00 AM EDT Office Visit [facility] [address] [place] [phone] Corey Monsalve MD [address] [place] [address] documented as of this encounter Visit Diagnoses Not on filedocumented in this encounter Additional Health Concerns Assessment Noted Time PHQ-9 Depression Total Score: 3 03/28/20 24 1:17 PM EST documented as of this encounter Care Teams Cap Inspector Relationship Specialty Start Date End Date Corey Monsalve MD [address] [place] [address] PCP - General Internal Medicine 12/14/13 documented as of this encounter
--- OUTSIDE RECORDS SUMMARY | 2024-06-08 10:57 | XMS_ITS | Encounter Summary ---
Author Organization [employer] [facility] Address [address] [place] [address] 7t [place] [address] Care Team Providers Care Analysis Lead Name Role Phone Corey Monsalve MD Primary Care Provide r Encounter Details Date Type Department Care Team (Late st Contact Info) Description 05/26/2022 Orders Only [facility] MED[facility]INE [address] [place] [phone] [place] Newby LPN Social History Tobacco Use Types Packs/Day [...] PM EST documented as of this encounter Plan of Treatment Upcoming Encounters Date Type Department Care Team (Late st Contact Info) Description 07/14/2024 10:00 AM EST Clinical Support [facility] [address] [place] [address] Vidhya Dickson RN [address] [place] [address] 08/01/2024 9:00 AM EDT Office Visit [facility] [address] [place] [address] Corey Monsalve MD [address] [place] [address] documented as of this encounter Visit Diagnoses Not on filedocumented in this encounter Additional Health Concerns Assessment Noted Time PHQ-9 Depression Total Score: 0 05/19/19 23 2:29 PM EST documented as of this encounter Care Teams Analysis Lead Relationship Specialty Start Date End Date Corey Monsalve MD [address] [place], [place] [phone] PCP - General Internal Medicine 12/14/13 documented as of this encounter
--- OUTSIDE RECORDS SUMMARY | 2024-06-08 10:57 | XMS_ITS | Encounter Summary ---
Author Organization [employer] Address [address] [facility] 7t [place] [address] Care Team Providers Care Solder Making Supervisor Name Role Phone Corey Monsalve MD Primary Care Provide r Reason for Visit * Reason Comments Med Refill Encounter Details Date Type Department Care Team (Late st Contact Info) Description 05/04/[address] [facility] MED & PEDS [address] [place] [address] Corey Monsalve MD [address] [place] [address] Chronic low back pain, unspecified back pain [...] 07/14/2024 10:00 AM EST Clinical Support [facility] [address] [place] [phone] Vidhya Dickson, TEODORA [address] [place] [address] 08/01/2024 9:00 AM EDT Office Visit [facility] [address] [place] [phone] Corey Monsalve MD [address] [place] [address] documented as of this encounter Visit Diagnoses Diagnosis Chronic low back pain, unspecified back pain laterality, unspecified whether sciatica present documented in this encounter Additional Health Concerns Assessment Noted Time PHQ-9 Depression Total Score: 3 03/28/20 24 1:17 PM EST documented as of this encounter Care Teams Solder Making Supervisor Relationship Specialty Start Date End Date Corey Monsalve MD [address] [place] [phone] PCP - General Internal Medicine 12/14/13 documented as of this encounter
--- OUTSIDE RECORDS SUMMARY | 2024-06-08 10:57 | XMS_ITS | Encounter Summary ---
Author Organization [employer] Address [address] [facility] 7t [place] [address] Care Team Providers Care Purchase Order Checker Name Role Phone Corey Monsalve MD Primary Care Provide r Reason for Visit * Reason Onset Date Comments Appointment Request 05/07/2023 Encounter Details Date Type Department Care Team ([facility] st Contact Info) Description 05/07/2023 Telephone [facility] [address] [place] [address] Corey Monsalve MD [address] [place] [address] Appointment Request Social History Tobacco Use Types Packs/Day Years [...] encounter Miscellaneous Notes * Telephone Encounter - Candida Morrow - 05/07/2023 12:10 PM EST Tc from pt requesting a follow up appt, pt has no recall. States sees PCP every 4 months per last office visit with PCP 02/02/23 ( f/u with me in 4 months/ DM ) , Remnant Sorter attempted to book however zeroavailability. Please contact at [phone] documented in this encounter Plan of Treatment Upcoming Encounters Date Type Department Care Team (Late st Contact Info) Description 07/14/2024 10:00 AM EST Clinical Support [facility] [address] [place] [phone] Vidhya Dickson RN [address] [place] [address] 08/01/2024 9:00 AM EDT Office Visit [facility] [address] [place] [phone] Corey Monsalve MD [address] [place] [phone] documented as of this encounter Visit Diagnoses Not on filedocumented in this encounter Additional Health Concerns Assessment Noted Time PHQ-9 Depression Total Score: 0 05/19/19 23 2:29 PM EST documented as of this encounter Care Teams Purchase Order Checker Relationship Specialty Start Date End Date Corey Monsalve MD [address] [place] [address] PCP - General Internal Medicine 12/14/13 documented as of this encounter
--- OUTSIDE RECORDS SUMMARY | 2024-06-08 10:57 | XMS_ITS | Encounter Summary ---
Author Organization [facility] Address [address] [place] [address] 7 [place] [address] Care Team Providers Care Overlay Plastician Name Role Phone Corey Monsalve MD Primary Care Provide r Encounter Details Date Type Department Care Team (Late st Contact Info) Description 09/10/2022 Abstract [facility] [address] [place] [address] Corey Monsalve MD 230 [place] [address] Social History Tobacco Use Types Packs/Day Years [...] Description 07/14/2024 10:00 AM EST Clinical Support [facility] 230 [place] [address] Vidhya Dickson RN 505 [place] [address] 08/01/2024 9:00 AM EDT Office Visit [facility] 230 [place] [address] Corey Monsalve MD [address] [facility] [place] [address] documented as of this encounter Procedures Procedure Name Priority Date/Time Associated Diagnosis Comments COLONOSCOPY Routine 04/05/2013 documented in this encounter Results * Colonoscopy (04/05/2013) Colonoscopy Normal Normal 04/05/2013 Narrative Yee Farias - 04/05/2013 10:55 AM EST Recommended 10 year follow up ( see scanned notes) us Historical Provider HEALTH MAINTENANCE Edited Result - Final documented in this encounter Visit Diagnoses Not on filedocumented in this encounter Additional Health Concerns Assessment Noted Time PHQ-9 Depression Total Score: 0 05/19/19 23 2:29 PM EST documented as of this encounter Care Teams Overlay Plastician Relationship Specialty Start Date End Date Corey Monsalve MD [address] [facility] [place] [address] PCP - General Internal Medicine 12/14/13 documented as of this encounter
== END 2024-06-08 08:04 | disposition home or self-care (01) ==
LOC: HO.LAB 08:03
PROVIDERS: Nurse Practitioner Family; PCP Internal Medicine; Visit Provider Nurse Practitioner Family
DX: R07.2 Precordial pain (principal); R35.1 Nocturia; Z12.5 Encounter for screening for malignant neoplasm of prostate
CPT/HCPCS: 36415; 80048; 84153

== ENCOUNTER 2024-07-04 08:57 | Outpatient (REF) | payer OTHER, SELFPAY ==
--- OUTSIDE RECORDS SUMMARY | 2024-07-04 09:43 | XMS_ITS | Encounter Summary ---
Author Organization [employer] Address [address] [facility] 7 [place] [address] Care Team Providers Care Wood Last Maker Name Role Phone Corey Monsalve MD Primary Care Provide r Reason for Visit * Reason Comments Med Refill Encounter Details Date Type Department Care Team (Late st Contact Info) Description 2024 Refill [facility] 230 [place] [address] Corey Monsalve MD 230 [place], [place] [phone] Type 2 diabetes mellitus without complication, with long-term current use of insulin ([facility]); Chronic low back pain, unspecified back pain [...] housing situation today? I have precious baldemar 06/18/[address] you li [...] Description 07/14/2024 10:00 AM EST Clinical Support [facility] [address] [place] [address] Vidhya Dickson, TEODORA 505 [place] [address] 08/01/2024 9:00 AM EDT Office Visit [facility] [address] [place] [address] Corey Monsalve MD [address] [place] [address] documented as of this encounter Visit Diagnoses Diagnosis Type 2 diabetes mellitus without complication, with long-term current use of insulin ([facility]) Chronic low back pain, unspecified back pain laterality, unspecified whether sciatica present documented in this encounter Additional Health Concerns Assessment Noted Time PHQ-9 Depression Total Score: 3 03/28/20 24 1:17 PM EST documented as of this encounter Care Teams Wood Last Maker Relationship Specialty Start Date End Date Corey Monsalve MD [address] [place] [address] PCP - General Internal Medicine 12/14/13 documented as of this encounter
--- OUTSIDE RECORDS SUMMARY | 2024-07-04 09:43 | XMS_ITS | Encounter Summary ---
Author Organization [employer] Address [address] [place] [address] 7t [place] [address] Care Team Providers Care Well Flow Operator Name Role Phone Corey Monsalve MD Primary Care Provide r Encounter Details Date Type Department Care Team (Late st Contact Info) Description 08/31/2022 Orders Only [facility]S 505 [place] [address] Lina Harrell LPN Social History Tobacco Use [...] Description 07/14/2024 10:00 AM EST Clinical Support [facility] MEDICINE 230 [place] [address] Vidhya Dikcson, RN 505 [place] [address] 08/01/2024 9:00 AM EDT Office Visit [facility] [address] [facility] [place] [address] Corey Monsalve MD [address] [place] [address] documented as of this encounter Visit Diagnoses Not on filedocumented in this encounter Additional Health Concerns Assessment Noted Time PHQ-9 Depression Total Score: 0 05/19/19 23 2:29 PM EST documented as of this encounter Care Teams Well Flow Operator Relationship Specialty Start Date End Date Corey Monsalve MD 230 [place] [address] PCP - General Internal Medicine 12/14/13 documented as of this encounter
--- OUTSIDE RECORDS SUMMARY | 2024-07-04 09:43 | XMS_ITS | Encounter Summary ---
Author Organization [employer] Address 75 [facility] 7 [place] [address] Care Team Providers Care Engineering Technician Parking Name Role Phone Corey Monsalve MD Primary Care Provide r Reason for Visit * Reason Comments Med Refill Encounter Details Date Type Department Care Team (Late st Contact Info) Description 06/20/2024 Refill [facility] 230 [place] [address] Corey Monsalve MD 230 [place], [place] [phone] Type 2 diabetes mellitus without complication, with long-term current use of insulin ([facility]) Social History Tobacco Use Types [...] 10:00 AM EST Clinical Support [facility] [address] [place] [address] Vidhya Dickson, TEODORA 505 [place] [address] 08/01/2024 9:00 AM EDT Office Visit [facility] [address] [place] [address] Corey Monsalve MD [address] [place] [address] documented as of this encounter Visit Diagnoses Diagnosis Type 2 diabetes mellitus without complication, with long-term current use of insulin ([facility]) documented in this encounter Additional Health Concerns Assessment Noted Time PHQ-9 Depression Total Score: 3 03/28/20 24 1:17 PM EST documented as of this encounter Care Teams Engineering Technician Parking Relationship Specialty Start Date End Date Corey Monsalve MD [address] [place] [address] PCP - General Internal Medicine 12/14/13 documented as of this encounter
--- OUTSIDE RECORDS SUMMARY | 2024-07-04 09:43 | XMS_ITS | Encounter Summary ---
Author Organization [employer] Address 75 [facility] 7t [place] [address] Care Team Providers Care Director Career Name Role Phone Corey Monsalve MD Primary Care Provide r Reason for Visit * Reason Comments Med Refill Encounter Details Date Type Department Care Team (Late st Contact Info) Description 04/21/2024 Refill [facility]INE 230 [place] [address] Corey Monsalve MD 230 [place], [place] [phone] Social History Tobacco Use Types Packs/Day Years [...] 10:00 AM EST Clinical Support [facility] MEDICINE [address] [place] [address] Vidhya Dickson RN 505 [place] [address] 08/01/2024 9:00 AM EDT Office Visit [facility] MEDICINE [address] [place] [address] Corey Monsalve MD [address] [place] [address] documented as of this encounter Visit Diagnoses Not on filedocumented in this encounter Additional Health Concerns Assessment Noted Time PHQ-9 Depression Total Score: 3 03/28/20 24 1:17 PM EST documented as of this encounter Care Teams Director Career Relationship Specialty Start Date End Date Corey Monsalve MD [address] [place] [address] PCP - General Internal Medicine 12/14/13 documented as of this encounter
--- OUTSIDE RECORDS SUMMARY | 2024-07-04 09:43 | XMS_ITS | Encounter Summary ---
Author Organization [employer] Address 75 [facility] 7t [place] [address] Care Team Providers Care Health Psychologist Name Role Phone Corey Monsalve MD Primary Care Provide r Encounter Details Date Type Department Care Team ([facility] st Contact Info) Description 06/08/2024 Orders Only GENERIC EXTERNAL DATA DEPARTMENT Provider, Generic External Data Social History Tobacco Use Types Packs/Day Years [...] Description 07/14/2024 10:00 AM EST Clinical Support [facility] MED[facility]INE [address] [place] [address] Vidhya Dickson RN 505 [place] [address] 08/01/2024 9:00 AM EDT Office Visit [facility] [address] [place] [address] Corey Monsalve MD 230 [place] [address] documented as of this encounter Procedures Procedure Name Priority Date/Time Associated Diagnosis Comments PSA, TOTAL Routine 06/08/2024 8:13 AM EST BASIC METABOLIC PANEL Routine 06/08/2024 8:13 AM EST documented in this encounter Results * PSA,Total (06/08/2024 8:13 AM EST) Prostate Specific Antigen 0.19 <0.05 - 4.0 ng/mL [facility] Comment:PSA methodology: Abb castillo Alinity i ChemiluminescentMicroparticle Immunoassay (CMIA) 06/08/2024 8:13 AM EST 06/08/2024 8:13 AM EST us Generic External Data Provider LAB BLOOD ORDERAB LES Final Result [facility] [address] [place] [phone] * (ABNORMAL) Basic Metabolic Panel (06/08/2024 8:13 AM EST) Sodium 143 135 - 145 mmol/L [facility] Potassium 4.5 3.3 - 5.1 mmol/L [facility] Chloride 111(H) 96 - 108 mmol/L [facility] Carbon Dioxide 27 22 - 29 mmol/L [facility] Anion Gap 10(L) 12 - 20 [facility] Urea Nitrogen (BUN) 16 9 - 16 mg/dL [facility] Creatinine, Serum 0.78 0.5 - 1.4 mg/dL [facility] Estimated Glomerular Filt Rate >60 [facility] Comment:Chronic Kidney Disea se: Estimated GFR < 60 mL/min/[id number] Kidney Disease: Estimated GFR < 15 mL/min/1.73m2 Glucose 161(H) 60 - 115 mg/dL [facility] Calcium 9.1 8.4 - 10.2 mg/dL [facility] 06/08/2024 8:13 AM EST 06/08/2024 8:13 AM EST us Generic External Data Provider LAB BLOOD ORDERAB LES Final Result [facility] [address] [place] [address] [phone] documented in this encounter Visit Diagnoses Not on filedocumented in this encounter Additional Health Concerns Assessment Noted Time PHQ-9 Depression Total Score: 3 03/28/20 24 1:17 PM EST documented as of this encounter Care Teams Health Psychologist Relationship Specialty Start Date End Date Corey Monsalve MD [address] [place] [address] PCP - General Internal Medicine 12/14/13 documented as of this encounter
--- OUTSIDE RECORDS SUMMARY | 2024-07-04 09:43 | XMS_ITS | Encounter Summary ---
Author Organization [employer] Address 75 [facility] 7t [place] [address] Care Team Providers Care Pop Singer Name Role Phone Corey Monsalve MD Primary Care Provide r Reason for Visit * Reason Comments Med Refill Encounter Details Date Type Department Care Team (Late st Contact Info) Description 01/23/2024 Refill [facility] MED [facility]EDS [address] [place] [address] Corey Monsalve MD 230 [place] [address] Chronic low back pain, unspecified back pain [...] Description 07/14/2024 10:00 AM EST Clinical Support [facility] [address] [place] [address] Vidhya Dickson, TEODORA 505 [place] [address] 08/01/2024 9:00 AM EDT Office Visit [facility] [address] [place] [address] Corey Monsalve MD [address] [place] [address] documented as of this encounter Visit Diagnoses Diagnosis Chronic low back pain, unspecified back pain laterality, unspecified whether sciatica present documented in this encounter Additional Health Concerns Assessment Noted Time PHQ-9 Depression Total Score: 11 024 10:15 AM EST documented as of this encounter Care Teams Pop Singer Relationship Specialty Start Date End Date Corey Monsalve MD [address] [place] [address] PCP - General Internal Medicine 12/14/13 documented as of this encounter
--- OUTSIDE RECORDS SUMMARY | 2024-07-04 09:43 | XMS_ITS | Encounter Summary ---
Author Organization [employer] [facility] Address [address] [place] [address] 7 [place] [address] Care Team Providers Care Management Department Chair Name Role Phone Corey Monsalve MD Primary Care Provide r Encounter Details Date Type Department Care Team (Late st Contact Info) Description 05/26/2022 Orders Only [facility] MEDICINE [address] [place] [address] [place] Newby LPN Social History Tobacco Use [...] Description 07/14/2024 10:00 AM EST Clinical Support [facility] MEDICINE 230 [place] [address] Vidhya Dickson RN 505 [place] [address] 08/01/2024 9:00 AM EDT Office Visit [facility]INE 230 [place] [address] Corey Monsalve MD 230 [place] [address] documented as of this encounter Visit Diagnoses Not on filedocumented in this encounter Additional Health Concerns Assessment Noted Time PHQ-9 Depression Total Score: 0 05/19/19 23 2:29 PM EST documented as of this encounter Care Teams Management Department Chair Relationship Specialty Start Date End Date Corey Monsalve MD 230 [place], [place] [phone] PCP - General Internal Medicine 12/14/13 documented as of this encounter
--- OUTSIDE RECORDS SUMMARY | 2024-07-04 09:43 | XMS_ITS | Encounter Summary ---
Author Organization [facility] Address [address] [place] [address] 7 [place] [address] Care Team Providers Care Finishing Tunnel Operator Name Role Phone Corey Monsalve MD Primary Care Provide r Reason for Visit * Reason Onset Date Comments Pa form 06/02/2022 Encounter Details Date Type Department Care Team ([facility] st Contact Info) Description 06/02/2022 Telephone [facility] 230 [place] [address] Corey Monsalve MD 230 [place] [address] Pa form Social History Tobacco Use Types [...] 2:32 PM EST Received PA form for Susan from PCP's family medicine physician assistant. Handed to PA specialist to process. * [...] Description 07/14/2024 10:00 AM EST Clinical Support [facility] [address] [place] [address] Vidhya Dickson RN 505 [place] [address] 08/01/2024 9:00 AM EDT Office Visit [address] [address] Corey Monsalve MD [address] [place] [address] documented as of this encounter Visit Diagnoses Not on filedocumented in this encounter Additional Health Concerns Assessment Noted Time PHQ-9 Depression Total Score: 0 05/19/19 23 2:29 PM EST documented as of this encounter Care Teams Finishing Tunnel Operator Relationship Specialty Start Date End Date Corey Monsalve MD [address] [place] [address] PCP - General Internal Medicine 12/14/13 documented as of this encounter
--- OUTSIDE RECORDS SUMMARY | 2024-07-04 09:43 | XMS_ITS | Encounter Summary ---
Author Organization [employer] Address 75 [facility] 7t [place] [address] Care Team Providers Care Cryptanalyst Name Role Phone Corey Monsalve MD Primary Care Provide r Reason for Visit * Reason Comments Med Refill Encounter Details Date Type Department Care Team (Late st Contact Info) Description 08/13/2023 Refill [facility] 230 [place] [address] Corey Monsalve MD 230 [place], [place] [phone] Social History Tobacco Use Types Packs/Day Years [...] Description 07/14/2024 10:00 AM EST Clinical Support [facility] [address] [place] [address] Vidhya Dickson RN 505 [place] [address] 08/01/2024 9:00 AM EDT Office Visit [facility] [address] [place] [address] Corey Monsalve MD [address] [place] [address] documented as of this encounter Visit Diagnoses Not on filedocumented in this encounter Additional Health Concerns Assessment Noted Time PHQ-9 Depression Total Score: 11 024 10:15 AM EST documented as of this encounter Care Teams Cryptanalyst Relationship Specialty Start Date End Date Corey Monsalve MD [address] [place] [address] PCP - General Internal Medicine 12/14/13 documented as of this encounter
--- OUTSIDE RECORDS SUMMARY | 2024-07-04 09:43 | XMS_ITS | Encounter Summary ---
Author Organization [employer] [facility] Address [address] [place] [address] 7 [place] [address] Care Team Providers Care Hydraulic Pile Hammer Operator Name Role Phone Corey Monsalve MD Primary Care Provide r Encounter Details Date Type Department Care Team (Late st Contact Info) Description 09/10/2022 Abstract [facility]INE [address] [place] [address] Corey Monsalve MD 230 [place] [address] Social History Tobacco Use Types Packs/Day Years [...] Description 07/14/2024 10:00 AM EST Clinical Support [facility] 230 [place] [address] Vidhya Dickson RN 505 [place] [address] 08/01/2024 9:00 AM EDT Office Visit [facility] 230 [place] [address] Corey Monsalve MD 230 [facility] [place] [address] documented as of this encounter Procedures Procedure [...] documented as of this encounter Care Teams Hydraulic Pile Hammer Operator Relationship Specialty Start Date End Date Corey Monsalve MD [address] [facility] [place] [address] PCP - General Internal Medicine 12/14/13 documented as of this encounter
--- OUTSIDE RECORDS SUMMARY | 2024-07-04 09:43 | XMS_ITS | Encounter Summary ---
Author Organization [employer] Address 75 [facility] 7t [place] [address] Care Team Providers Care Molder Machine Name Role Phone Corey Monsalve MD Primary Care Provide r Reason for Visit * Reason Comments Med Refill Encounter Details Date Type Department Care Team (Late st Contact Info) Description 11/09/2023 Refill [facility] MED & PEDS [address] [place] [address] Corey Monsalve MD 230 [place] [address] Chronic low back pain, unspecified back pain [...] Description 07/14/2024 10:00 AM EST Clinical Support [facility] MEDICINE [address] [place] [address] Vidhya Dickson RN 505 [place] [address] 08/01/2024 9:00 AM EDT Office Visit [facility] MEDICINE [address] [place] [address] Corey Monsalve MD [address] [place] [address] documented as of this encounter Visit Diagnoses Diagnosis Chronic low back pain, unspecified back pain laterality, unspecified whether sciatica present documented in this encounter Additional Health Concerns Assessment Noted Time PHQ-9 Depression Total Score: 11 024 10:15 AM EST documented as of this encounter Care Teams Molder Machine Relationship Specialty Start Date End Date Corey Monsalve MD [address] [place] [address] PCP - General Internal Medicine 12/14/13 documented as of this encounter
--- OUTSIDE RECORDS SUMMARY | 2024-07-04 09:43 | XMS_ITS | Encounter Summary ---
Author Organization [employer] Address 75 [facility] 7t [place] [address] Care Team Providers Care Ebd Teacher Name Role Phone Corey Monsalve MD Primary Care Provide r Reason for Visit * Reason Onset Date Comments Med Refill 04/03/2024 Encounter Details Date Type Department Care Team ([facility] st Contact Info) Description 04/03/2024 Telephone [facility]INE 230 [place] [address] Corey Monsalve MD 230 [place] [address] Med Refill Social History Tobacco Use Types [...] immediate release tablet To be sent to: [facility] - [place], [place] - [address] [place] [address] documented in this encounter Plan of Treatment Upcoming Encounters Date Type Department Care Team (Late st Contact Info) Description 07/14/2024 10:00 AM EST Clinical Support [facility] MEDICINE [address] [place] [address] Vidhya Dickson RN 505 [place] [address] 08/01/2024 9:00 AM EDT Office Visit [facility] MED[facility]INE [address] [place] [address] Corey Monsalve MD [address] [place] [address] documented as of this encounter Visit Diagnoses Not on filedocumented in this encounter Additional Health Concerns Assessment Noted Time PHQ-9 Depression Total Score: 3 03/28/20 24 1:17 PM EST documented as of this encounter Care Teams Ebd Teacher Relationship Specialty Start Date End Date Corey Monsalve MD 230 [place] [address] PCP - General Internal Medicine 12/14/13 documented as of this encounter
--- OUTSIDE RECORDS SUMMARY | 2024-07-04 09:43 | XMS_ITS | Encounter Summary ---
Author Organization [employer] Address 75 [facility] 7t [place] [address] Care Team Providers Care Block Handler Name Role Phone Corey Mnosalve MD Primary Care Provide r Reason for Visit * Reason Comments Med Refill Encounter Details Date Type Department Care Team (Late st Contact Info) Description 11/08/2023 Refill [facility] MED & PEDS [address] [place] [address] Corey Monsalve MD 230 [place] [address] Chronic low back pain, unspecified back pain [...] 10:00 AM EST Clinical Support [facility] MEDICINE [address] [place] [address] Vidhya Dickson RN 505 [place] [address] 08/01/2024 9:00 AM EDT Office Visit [facility] MEDICINE [address] [place] [address] Corey Monsalve MD [address] [place] [address] documented as of this encounter Visit Diagnoses Diagnosis Chronic low back pain, unspecified back pain laterality, unspecified whether sciatica present documented in this encounter Additional Health Concerns Assessment Noted Time PHQ-9 Depression Total Score: 11 024 10:15 AM EST documented as of this encounter Care Teams Block Handler Relationship Specialty Start Date End Date Corey Monsalve MD [address] [place] [address] PCP - General Internal Medicine 12/14/13 documented as of this encounter
--- OUTSIDE RECORDS SUMMARY | 2024-07-04 09:43 | XMS_ITS | Encounter Summary ---
Author Organization [email or web address] Address 75 [facility] 7 [place] [address] Care Team Providers Care Processing Tech Name Role Phone Corey Monsalve MD Primary Care Provide r Reason for Visit * Reason Onset Date Comments Med Refill 11/08/2023 Encounter Details Date Type Department Care Team (Late st Contact Info) Description 11/08/2023 Refill [facility] [address] [place] [address] Corey Monsalve MD [address] [place] [address] Chronic low back pain, unspecified back pain [...] immediate release tablet To be sent to: [facility] - [place], [place] - [address] [place] [address] documented in this encounter Plan of Treatment Upcoming Encounters Date Type Department Care Team ([facility] st Contact Info) Description 07/14/2024 10:00 AM EST Clinical Support [facility] [address] [place] [phone] Vidhya Dickson RN [address] [place] [address] 08/01/2024 9:00 AM EDT Office Visit [facility] [address] [place] [phone] Corey Monsalve MD [address] [place] [phone] documented as of this encounter Visit Diagnoses Diagnosis Chronic low back pain, unspecified back pain laterality, unspecified whether sciatica present documented in this encounter Additional Health Concerns Assessment Noted Time PHQ-9 Depression Total Score: 11 024 10:15 AM EST documented as of this encounter Care Teams Processing Tech Relationship Specialty Start Date End Date Corey Monsalve MD [address] [place] [address] PCP - General Internal Medicine 12/14/13 documented as of this encounter
--- OUTSIDE RECORDS SUMMARY | 2024-07-04 09:43 | XMS_ITS | Encounter Summary ---
Author Organization [employer] Address 75 [facility] 7t [place] [address] Care Team Providers Care Check Grader Name Role Phone Corey Monsalve MD Primary Care Provide r Reason for Visit * Reason Comments Med Refill Encounter Details Date Type Department Care Team (Late st Contact Info) Description 06/30/2024 Refill [facility] 230 [place] [address] Corey Monsalve MD 230 [place], [place] [phone] Social History Tobacco Use Types Packs/Day Years [...] Description 07/14/2024 10:00 AM EST Clinical Support [facility] [address] [place] [address] Vidhya Dickson RN 505 [place] [address] 08/01/2024 9:00 AM EDT Office Visit [facility] [address] [place] [phone] Corey Monsalve MD [address] [place] [address] documented as of this encounter Visit Diagnoses Not on filedocumented in this encounter Additional Health Concerns Assessment Noted Time PHQ-9 Depression Total Score: 3 03/28/20 24 1:17 PM EST documented as of this encounter Care Teams Check Grader Relationship Specialty Start Date End Date Corey Monsalve MD [address] [place] [address] PCP - General Internal Medicine 12/14/13 documented as of this encounter
--- OUTSIDE RECORDS SUMMARY | 2024-07-04 09:43 | XMS_ITS | Encounter Summary ---
Author Organization [employer] Address 75 [facility] 7t [place] [address] Care Team Providers Care Manager Of Sales Name Role Phone Corey Monsalve MD Primary Care Provide r Reason for Visit * Reason Comments Med Refill Encounter Details Date Type Department Care Team (Late st Contact Info) Description 06/25/2024 Refill [facility] [address] [place], [place] [phone] Corey Monsalve MD 230 [place], [place] [phone] Mixed hyperlipidemia Social History Tobacco Use Types Packs/Day Years [...] Description 07/14/2024 10:00 AM EST Clinical Support [facility] [address] [place] [phone] Vidhya Dickson RN 505 [place] [address] 08/01/2024 9:00 AM EDT Office Visit [facility] [address] [place] [phone] Corey Monsalve MD [address] [place] [phone] documented as of this encounter Visit Diagnoses Diagnosis Mixed hyperlipidemia documented in this encounter Additional Health Concerns Assessment Noted Time PHQ-9 Depression Total Score: 3 03/28/20 24 1:17 PM EST documented as of this encounter Care Teams Manager Of Sales Relationship Specialty Start Date End Date Corey Monsalve MD [address] [place] [address] PCP - General Internal Medicine 12/14/13 documented as of this encounter
--- OUTSIDE RECORDS SUMMARY | 2024-07-04 09:43 | XMS_ITS | Encounter Summary ---
Author Organization [facility] Address [address] [place] [address] 7 [place] [address] Care Team Providers Care Real Estate Teacher Name Role Phone Corey Monsalve MD Primary Care Provide r Encounter Details Date Type Department Care Team (Late st Contact Info) Description 07/31/2022 Orders Only [facility] [address] [place] [address] Lina Harrell LPN Social History Tobacco Use [...] EST Clinical Support [facility] [address] [place] [address] Vidhya Dickson RN [address] [place] [address] 08/01/2024 9:00 AM EDT Office Visit [facility] [address] [place] [address] Corey Monsalve MD [address] [place] [address] documented as of this encounter Visit Diagnoses Not on filedocumented in this encounter Additional Health Concerns Assessment Noted Time PHQ-9 Depression Total Score: 0 05/19/19 23 2:29 PM EST documented as of this encounter Care Teams Real Estate Teacher Relationship Specialty Start Date End Date Corey Monsalve MD [address] [place] [address] PCP - General Internal Medicine 12/14/13 documented as of this encounter
--- OUTSIDE RECORDS SUMMARY | 2024-07-04 09:43 | XMS_ITS | Encounter Summary ---
Author Organization [employer] Address 75 [facility] 7t [place] [address] Care Team Providers Care Family Support Worker Name Role Phone Corey Monsalve MD Primary Care Provide r Reason for Visit * Reason Comments Med Refill Encounter Details Date Type Department Care Team (Late st Contact Info) Description 11/05/2023 Refill [facility] [address] [place] [address] Corey Monsalve MD [address] [place] [address] Chronic low back pain, unspecified back pain [...] Description 07/14/2024 10:00 AM EST Clinical Support [facility] [address] [place] [phone] Vidhya Dickson RN 505 [place] [address] 08/01/2024 9:00 AM EDT Office Visit [facility] [address] [place] [phone] Corey Monsalve MD [address] [place] [address] documented as of this encounter Visit Diagnoses Diagnosis Chronic low back pain, unspecified back pain laterality, unspecified whether sciatica present documented in this encounter Additional Health Concerns Assessment Noted Time PHQ-9 Depression Total Score: 11 024 10:15 AM EST documented as of this encounter Care Teams Family Support Worker Relationship Specialty Start Date End Date Corey Monsalve MD [address] [place] [address] PCP - General Internal Medicine 12/14/13 documented as of this encounter
--- OUTSIDE RECORDS SUMMARY | 2024-07-04 09:43 | XMS_ITS | Encounter Summary ---
Author Organization [employer] [facility] Address [address] [place] [address] 7 [place] [address] Care Team Providers Care Sales Operations Consultant Name Role Phone Corey Monsalve MD Primary Care Provide r Encounter Details Date Type Department Care Team (Late st Contact Info) Description 05/13/2022 Orders Only [facility] [address] [place] [address] Lina Harrell LPN Social History Tobacco Use [...] 10:00 AM EST Clinical Support [facility] [address] [place] [address] Vidhya Dickson, RN [address] [place] [address] 08/01/2024 9:00 AM EDT Office Visit [facility] [address] [place] [address] Corey Monsalve MD [address] [place] [address] documented as of this encounter Visit Diagnoses Not on filedocumented in this encounter Care Teams Sales Operations Consultant Relationship Specialty Start Date End Date Corey Monsalve MD [address] [place] [address] PCP - General Internal Medicine 12/14/13 documented as of this encounter
--- OUTSIDE RECORDS SUMMARY | 2024-07-04 09:43 | XMS_ITS | Encounter Summary ---
Author Organization [employer] Address 75 [facility] 7t [place] [address] Care Team Providers Care Crankshaft Balancer Name Role Phone Corey Monsalve MD Primary Care Provide r Reason for Visit * Reason Comments Med Refill Encounter Details Date Type Department Care Team ([facility] st Contact Info) Description 03/21/2023 Refill [facility] [address] [place] [address] Corey Monsalve MD 230 [place], [place] [phone] Social History Tobacco Use Types Packs/Day Years [...] Description 07/14/2024 10:00 AM EST Clinical Support [facility] [address] [place] [phone] Vidhya Dickson RN 505 [place] [address] 08/01/2024 9:00 AM EDT Office Visit [facility] [address] [place] [address] Corey Monsalve MD [address] [place] [address] documented as of this encounter Visit Diagnoses Not on filedocumented in this encounter Additional Health Concerns Assessment Noted Time PHQ-9 Depression Total Score: 0 05/19/19 23 2:29 PM EST documented as of this encounter Care Teams Crankshaft Balancer Relationship Specialty Start Date End Date Corey Monsalve MD [address] [place] [address] PCP - General Internal Medicine 12/14/13 documented as of this encounter
--- OUTSIDE RECORDS SUMMARY | 2024-07-04 09:43 | XMS_ITS | Clinical Summary ---
Author Organization [employer] Address [address] [place] [address] 7[address] [place] [address] Care Team Providers Care Turbinated Bone Grinder Name Role Phone Corey Monsalve MD Primary [...] 150 mL 023 Active Continuous Blood Gluc Bark Fitter (FreeStyle Abhishek 2 [employer]) deviceIndications :Type 2 diabetes mellitus without complication, with long-term current use of insulin (CMS/[facility]) Use daily 1 each 023 Active Blood Glucose Monitoring Suppl (FreeStyle Lite) w/Device kitIndications:Ty pe 2 diabetes mellitus with hyperosmolarity without coma, with long-term current use of insulin (CMS/HCC) 1 Device before breakfast and before evening meal. 1 kit 023 Active NovoLOG 100 UNIT/ML solution INJECT 4 TO 14 UNITS SUBCUTANEOUSLY THREE TIMES DAILY 10 mL 023 Active TRUEplus Lancets 33G miscIndications:T ype 2 diabetes mellitus with hyperosmolarity without coma, with long-term current use of insulin (CMS/HCC) TEST BLOOD SUGAR FOUR TIMES DAILY 100 each 11 024 Active glucose blood (FREESTYLE LITE) test stripIndications: Type 2 diabetes mellitus with hyperosmolarity without coma, with long-term current use of insulin ([facility]) TEST BLOOD SUGAR FOUR TIMES DAILY DIRECTED 100 strip 11 024 Active Aspirin Low Dose 81 MG EC tablet TAKE 1 TABLET BY MOUTH EVERY DAY 90 tablet 3 024 Active docusate sodium (Colace) 100 MG capsule TAKE 1 CAPSULE BY MOUTH EVERY DAY 90 capsule 024 Active cetirizine (ZyrTEC) 10 MG tabletIndications :Seasonal allergies TAKE 1 TABLET BY MOUTH EVERY DAY IN THE MORNING 90 tablet 024 Active zolpidem (Ambien) 10 MG tablet [...] complication, with long-term current use of insulin ([facility]) USE DIRECTED DAILY. CHANGE EVERY 14 DAYS . 2 each 025 Active metFORMIN XR (Glucophage-XR) 500 MG 24 hr tabletIndications :Type 2 diabetes mellitus without complication, with long-term current use of insulin ([facility]) TAKE 2 TABLETS BY MOUTH TWICE DAILY IN THE MORNING AND IN THE EVENING WITH MEALS 120 tablet 3 025 Active ibuprofen 800 MG tabletIndications :Chronic low back pain, unspecified back pain laterality, unspecified whether sciatica present TAKE 1 TABLET BY MOUTH THREE TIMES DAILY WITH FOOD NEEDED 60 tablet 1 025 Active Trulicity 1.5 MG/0.5ML solution auto-injectorIndi cations:Type 2 diabetes mellitus without complication, with long-term current use of insulin ([facility]) INJECT ONE PEN (=1.5MG) SUBCUTANEOUSLY ONCE A WEEK DIRECTED 2 mL 6 025 Active omega-3 (Fish Oil) 1000 MG capsuleIndication s:Mixed hyperlipidemia TAKE 1 CAPSULE BY MOUTH THREE TIMES DAILY 270 capsule 025 Active atorvastatin (Lipitor) 20 MG tablet TAKE 1 TABLET BY MOUTH EVERY DAY 90 tablet 1 025 Active BD Insulin Syringe U/F 31G X 5/16 0.5 ML miscIndications:T ype 2 diabetes mellitus without complication, with long-term current use of insulin ([facility]) USE FOUR TIMES DAILY 120 each 11 025 Active oxyCODONE (Roxicodone) 5 MG immediate release tabletIndications :Chronic low back pain, unspecified back pain laterality, unspecified whether sciatica present TAKE 1 TABLET BY MOUTH EVERY 6 HOURS NEEDED FOR SEVERE PAIN 112 tablet 025 Active Lantus 100 UNIT/ML injection INJECT 40 UNITS SUBCUTANEOUSLY TWICE DAILY IN THE MORNING AND IN THE EVENING 30 mL 1 025 Active BD Insulin Syringe U/F 31G X 5/16 0.5 ML miscIndications:T ype 2 diabetes mellitus without complication, with long-term current use of insulin ([facility]) USE FOUR TIMES DAILY 120 each 11 023 2024 Discontinued atorvastatin (Lipitor) 20 MG tablet TAKE 1 TABLET BY MOUTH ONCE DAILY 90 tablet 1 024 2024 Discontinued dulaglutide (Trulicity) 1.5 MG/0.5ML solution pen-injectorIndic ations:Type 2 diabetes mellitus without complication, with long-term current use of insulin ([facility]) Inject 1.5 mg under the skin 1 (one) time per week. 4 each 6 024 2024 Discontinued omega-3 (Fish Oil) 1000 MG capsuleIndication s:Mixed hyperlipidemia TAKE 1 CAPSULE BY MOUTH THREE TIMES DAILY 270 capsule 1 024 2024 Discontinued Lantus 100 UNIT/ML injection INJECT 40 UNITS SUBCUTANEOUSLY TWICE DAILY IN THE MORNING AND IN THE EVENING 30 mL 1 024 2024 Discontinued oxyCODONE (Roxicodone) 5 MG immediate release tabletIndications :Chronic low back pain, unspecified back pain laterality, unspecified whether sciatica present TAKE 1 TABLET BY MOUTH EVERY 6 HOURS NEEDED FOR SEVERE PAIN 112 tablet 025 2024 Discontinued Active Problems Problem Noted Date [...] Plan (03/28/2024 1:43 PM EST): Seen at [facility] (01/09/2023) with c/o back pain and intermitent hematuria. CT showed nephrolithiasis. Treated with Flomax and referred to Dr Chandler [facility] Urology pt last seen 11/22/2023. Assessment & Plan (11/16/2023 10:35 AM EDT): Seen at [facility] [place] (01/09/2023) with c/o back pain and intermitent hematuria. CT showed nephrolithiasis. Treated with Flomax and referred to Dr Chandler [facility]rology pt last seen 03/2023. Pt tells me he has a follow up with him the 16 of this month Assessment & Plan (06/29/2023 9:58 AM EST): Recently seen at [facility] [place] (01/09/2023) with c/o back pain and intermitent hematuria. CT showed nephrolithiasis. Treated with Flomax and referred to Dr Chandler [facility]rology pt initially seen 02/12/2023 and subsequently in 03/2023 6 month follow up was recommended Assessment & Plan (02/02/2023 10:11 AM EDT): Recently seen at [facility] [place] (01/09/2023) with c/o back pain and intermitent [...] microscopic hematuria Evaluated by Urology specialist at [facility] last seen in February 27 2011,underwent a [...] & Plan (05/19/2022 2:58 PM EST): Under [facility] care of Dr. Virgilio Genao retinal specialist Treated with Avastin [facility] 05/19/2022 Assessment & Plan (11/16/2023 9:26 AM EDT): Colonoscopy: Normal : 04/05/2013 [facility] Referred back for Colonoscopy Pt has expected appt with [facility] on 01/13/24 @11AM for Colon Cancer Screening. PSA 03/02/2023: Normal Assessment & Plan (06/29/2023 10:01 AM EST): Colonoscopy: Normal : 04/05/2013 [facility] Will refer back for Colonoscopy PSA 03/02/2023: Normal Assessment & Plan (05/19/2022 2:59 PM EST): Colonoscopy: Normal : 04/05/2013 [facility] Venous retinal branch occlusion 11/20/2014 Chronic low [...] no longer under the care of the [facility]. Pt declines steroid injections. Pt finished a course of PT without improvement. Previously I recommended he be seen again at [facility] for re-evaluation given his ongoing chronic low back pain. Pt was offered steroid injections but he declined. Repeat MRI of LS spine 08/25/2017 showed post op and mild superimposed degenerative changes only continue current regimen. He might benefit from MATERIAL CONTROL MANAGER services Hyperlipidemia 10/21/2011 Assessment & Plan (03/28/2024 [...] Encounters Date Type Department Care Team Description 06/30/2024 Refill [facility] [address] [place] [address] Corey Monsalve MD 2024 Refill [facility] [address] [place] [address] Corey Monsalve MD Type 2 diabetes mellitus without complication, with long-term current use of insulin (CMS/HCC); Chronic low back pain, unspecified back pain laterality, unspecified whether sciatica present 06/25/2024 Refill [facility] [address] [place] [address] Corey Monsalve MD Mixed hyperlipidemia 06/20/2024 Refill [facility] [address] [place] [address] Corey Monsalve MD Type 2 diabetes mellitus without complication, with long-term current use of insulin (CMS/HCC) 06/08/2024 Orders Only GENERIC EXTERNAL DATA DEPARTMENT Provider, Generic External Data 05/30/2024 Refill [facility] [address] [place] [address] Corey Monsalve MD Chronic low back pain, unspecified back pain laterality, unspecified whether sciatica present 05/24/2024 Refill [facility] [address] [place] [address] Michelle Vargas MD Chronic low back pain, unspecified back pain laterality, unspecified whether sciatica present 05/24/2024 Refill [facility] [address] [place] [address] Corey Monsalve MD Type 2 diabetes mellitus without complication, with long-term current use of insulin (CMS/HCC); Chronic low back pain, unspecified back pain laterality, unspecified whether sciatica present 05/22/2024 Refill [facility] [address] [place] [address] Corey Monsalve MD Type 2 diabetes mellitus without complication, with long-term current use of insulin (CMS/HCC) 05/19/2024 Orders Only [facility] External Provider, [facility] 05/04/2024 Refill [facility] [address] [place] [address] Corey Monsalve MD Chronic low back pain, unspecified back pain laterality, unspecified whether sciatica present 05/01/2024 Telephone [facility] [address] [place] [address] Corey Monsalve MD Med Refill 05/01/2024 Refill C [facility] [address] [place] [address] Corey Monsalve MD Chronic low back pain, unspecified back pain laterality, unspecified whether sciatica present 04/21/2024 10:00 AM EST Clinical Support [facility] [address] [place] [address] Vidhya Dickson RN Chronic low back pain, unspecified back pain laterality, unspecified whether sciatica present 04/21/2024 Travel 04/21/2024 Refill [facility] [address] [place] [address] Corey Monsalve MD 04/13/2024 Refill [facility] [address] [place] [address] Corey Monsalve MD Chronic low back pain, unspecified back pain laterality, unspecified whether sciatica present 04/03/2024 Refill [facility] [address] [place] [address] Vidhya Dickson RN Chronic low back pain, unspecified back pain laterality, unspecified whether sciatica present; Type 2 diabetes mellitus without complication, with long-term current use of insulin ([facility]) 04/03/2024 Telephone [facility] [address] [place] [address] Corey Monsalve MD Med Refill from Last 3 Months Immunizations Name Administration Dates Next Due Hep A, Adult 08/19/2017 Influenza injectable quadriv alent IIV4 with preservative 02/15/2018,04/20/2017,02/26/2015 Influenza injectable quadriv alent preservative free 02/02/2023,03/11/2022,03/01/2020,03/16 Influenza, IIV3, injectable 04/12/2014, 1 Influenza, Split (incl. jackson fied surface antigen) 06/02/2012 Influenza, seasonal, injecta ble, preservative free 03/28/2024 Javid SARS-CoV-2 Vaccination 07/24/2020 Pfizer Covid-19 Vaccine 12+ [...] Description 07/14/2024 10:00 AM EST Clinical Support [facility] [address] [place] [phone] Vidhya Dickson RN [address] [place] [address] 08/01/2024 9:00 AM EDT Office Visit [facility] [address] [place] [phone] Corey Monsalve MD [address] [place] [address] Health Maintenance Due Date Last Done Comments CT Colonography 1959 FIT DNA/Cologuard 1959 FIT 1959 FOBT 1960 Sigmoidoscopy 1959 Diabetes: Foot Exam 1969 Eye Exam 1969 Pneumococcal Vaccine: 50+ Years (2 of 2 - PCV) 12/17/2006 12/17/2005 [...] 03/28/2025 03/28/2024 Depression Screening 03/28/2025 03/28/2024, 03/28/20 24 Tobacco Screening 03/28/2025 03/28/2024 Diabetes: Urine Protein Screening 04/11/2025 04/11/2024, 10/01/2022, 10/07/2021, Additional history exists Lipid Panel 04/11/2025 04/11/2024, 06/11, 10/01/2022, Additional history exists Hepatitis A Vaccines Aged Out 08/19/2017 No long er eligible based on patient's age to complete this topic Hepatitis C Screening Completed 10/01/2022, 022 COVID-19 [...] Results * PSA,Total (06/08/2024 8:13 AM EST) Pathologist [facility] Prostate Specific Antigen 0.19 <0.05 - 4.0 ng/mL [facility] Comment:PSA methodology: Cece Knight i ChemiluminescentMicroparticle Immunoassay (CMIA) 06/08/2024 8:13 AM EST 06/08/2024 8:13 AM EST Generic External Data Provider LAB BLOOD ORDERAB LES Final Result [facility] [address] [place] [phone] * (ABNORMAL) Basic Metabolic Panel (06/08/2024 8:13 AM EST) Sodium 143 135 - 145 mmol/L [facility] Potassium 4.5 3.3 - 5.1 mmol/L [facility] Chloride 111(H) 96 - 108 mmol/L [facility] Carbon Dioxide 27 22 - 29 mmol/L [facility] Anion Gap 10(L) 12 - 20 [facility] Urea Nitrogen (BUN) 16 9 - 16 mg/dL [facility] Creatinine, Serum 0.78 0.5 - 1.4 mg/dL [facility] Estimated Glomerular Filt Rate >60 [facility] Comment:Chronic Kidney Disea se: Estimated GFR < 60 mL/min/[id number] Kidney Disease: Estimated GFR < 15 mL/min/1.73m2 Glucose 161(H) 60 - 115 mg/dL [facility] Calcium 9.1 8.4 - 10.2 mg/dL [facility] 06/08/2024 8:13 AM EST 06/08/2024 8:13 AM EST us Generic External Data Provider LAB BLOOD ORDERAB LES Final Result [facility] [address] [place] [phone] * US RENAL BI (05/22/2024 1:01 PM EST) Anatomical Region Laterality Modality Abdomen Ultrasound 05/22/2024 1:01 PM EST Narrative 05/22/2024 1:02 PM EST ? [facility] ?[address] ?[place] [address] ? Ultrasound Report ? Signed ? Patient: Khan Martinez,Tex ?MR# ?? : [id number] ? : 1960 ?Acct:[id number] ? Age/Sex: 63 / M ?ADM Date: //25 ? Loc: HO.US ? Attending Dr: Sondra Toney PIGMENT SUPPLIER-BC ? Ordering Physician: Sondra Toney PIGMENT SUPPLIER-BC ?? Date of Service: 05/19/24 ?? Procedure(s): US renal BI ?? Accession Number(s): [id number] ? cc: Corey Spears MD; Sondra Toney [facility] ? CLINICAL HISTORY: N20.0 - Calculus of [...] DD/ 1301 ? TD/TT: 05/22/24 1301 ? Laundry Technician: ? Procedure Note Sheila, Image - 05/22/2024 [place] [address] Ultrasound Report Signed Patient: Tex AlstonMR# : [id number] : 1960Acct:[id number] Age/Sex: 63 / MADM Date: 05/19/24 Loc: HO.US Attending Dr: Sondra SERRANO Ordering Physician: Sondra Toney Date of Service: 05/19/24 Procedure(s): US renal BI Accession Number(s): [id number] cc: Corey Spears MD; Sondra Toney CLINICAL [...] 05/22/24 1302 DD/ 1301 TD/TT: 05/22/24 1301 Laundry Technician: [facility] External Provider IMG US PROCEDURES Edited Result - Final * POCT MAINOR-14 Urine Drug Screen (04/21/2024 10:13 AM EST) Oxycodone Screen, Urine Positive Urine Urine specimen obtained by clean catch procedure / Unknown 04/21/2024 10:13 AM EST Narrative Vidhya Dickson RN - 04/21/2024 10:13 AM EST .UTOX cup Lot#[id number] Exp. 02/01/26 Internal Pass Control Corey Sung MD POINT OF CARE TEST EN TER/EDIT ORDERABLES Final Result * Albumin, Random Urine W/Creatinine (04/11/2024 10:48 AM EST) Creatinine, Urine 123.28 mg/dL [facility] Microalbumin Urine 24.0 mg/L [facility] Microalbum Creatinine Ratio Ur 19.4 <30 ug/mg cr [facility] Comment:Albumin/Creatinine R atio Reference Ranges: Normal: < 30 ug/mg creatinine Microalbuminuria: 30 - 300 ug/mg creatinineClinical Albuminuria: > 300 ug/mg creatinine Urine (Urine, Random) 04/11/2024 10:48 AM EST 04/11/2024 11:41 AM EST Corey Sung MD LAB URINE ORDERABLES Final Result [facility] [address] [place] [phone] * (ABNORMAL) Lipid Panel, Standard (04/11/2024 10:48 AM EST) Triglycerides 282(H) <150 mg/dL [facility] Comment:Desirable Triglyceri de: less than 150 mg/dLBorderline High Triglyceride 150-199 mg/dLHigh Triglyceride: 200-499 mg/dLVery High Triglyceride: greater than or equal to 5OO mg/dL Cholesterol 199 <200 mg/dL [facility] Comment:Desirable Cholestero l: less than 200 mg/dLBorderline High Cholesterol: 200-239 mg/dLHigh Cholesterol: greater than 239 mg/dL LDL Cholesterol Calculated 104(H) <100 mg/dL [facility] Comment:Desirable LDL: less than 100 mg/dLNear Optimal/Above Optimal LDL: 110- 129 mg/dLBorderline High LDL: 130-159 mg/dLHigh LDL: 160-189 mg/dLVery High LDL: greater than or equal to 190 mg/dL HDL Cholesterol 39(L) >40 mg/dL [facility] Comment:Desirable HDL: great er than 40 mg/dL Note: This HDL assay may give artificially low results in patients with liver disease. Blood Venous blood specimen / Unknown 04/11/2024 10:48 AM EST 04/11/2024 12:58 PM EST us Corey Sung MD LAB BLOOD ORDERABLES Final Result [facility] [address] [place] [phone] * (ABNORMAL) Comprehensive Metabolic Panel (04/11/2024 10:48 AM EST) Sodium 140 135 - 145 mmol/L [facility] Potassium 4.2 3.3 - 5.1 mmol/L [facility] Comment:Slight Hemolysis.Int erpret result with caution. Chloride 109(H) 96 - 108 mmol/L [facility] Carbon Dioxide 25 22 - 29 mmol/L [facility] Anion Gap 10(L) 12 - 20 [facility] Urea Nitrogen (BUN) 17(H) 9 - 16 mg/dL [facility] Creatinine, Serum 0.86 0.5 - 1.4 mg/dL [facility] Estimated Glomerular Filt Rate >60 [facility] Comment:Chronic Kidney Disea se: Estimated GFR < 60 mL/min/[id number] Kidney Disease: Estimated GFR < 15 mL/min/1.73m2 Glucose 188(H) 60 - 115 mg/dL [facility] Calcium 8.8 8.4 - 10.2 mg/dL [facility] Bilirubin, Total 0.6 0.0 - 1.0 mg/dL [facility] Aspartate Amino Transferase 53(H) 5 - 37 U/L [facility] Comment:Slight Hemolysis.Int erpret result with caution. Alanine Aminotransferase 86(H) 0 - 40 U/L [facility] Total Protein 7.7 6.5 - 8.0 g/dL [facility] Albumin Level 4.4 3.5 - 5.0 g/dL [facility] Alkaline Phosphatase 62 39 - 117 U/L [facility] Blood Venous blood specimen / Unknown 04/11/2024 10:48 AM EST 04/11/2024 12:58 PM EST Corey Sung MD LAB BLOOD ORDERABLES Final Result Performing Organization Address City/State/[facility] Co de Phone Number [facility] [address] [place] [phone] * (ABNORMAL) POCT HGB A1C (03/28/2024 1:21 PM EST) [facility] Hemoglobin A1C 6.6(A) 4.0 - 6.0 % QC Media Lot # [id number] Lot# Expiration Date Blood 03/28/2024 1:21 PM EST Corey Sung MD POINT OF CARE TEST EN TER/EDIT ORDERABLES Final Result * Hepatitis C Antibody with Reflex to HCV, RNA, Quantitative, Real-Time PCR (10/01/2022 8:10 AM EDT) Hepatitis C Antibody NON-REACT FAM NON-REACT FAM [facility] [employer] acquired by [employer] Index 0.06 <1.00 [facility] Comment: HCV antibody was non-reactive. There is no laboratory evidence of HCV infection. In most cases, no further action is required. However, if recent HCV exposure is suspected, a test for HCV RNA (test code 99455) is suggested. For additional information please refer to http://education.HelloTel/faq/IBD02s1 (This link is being provided for informational/ educational purposes only.) Blood Venous blood specimen / Unknown 10/01/2022 8:10 AM EDT 10/01/2022 8:10 AM EDT Narrative [facility] - 10/02/2022 5:11 PM EDT FASTING:YES FASTING: YES Corey Sung MD LAB BLOOD ORDERABLES Final Result [facility] [address], [place] [phone] [facility] [employer] [address] [place] [phone] * Hm Colonoscopy (04/05/2013) Pathologist [facility] Colonoscopy Normal Normal 04/05/2013 Yee Hendrickson - 04/05/2013 10:55 AM EST Recommended 10 year follow up ( see scanned notes) Historical Provider HEALTH MAINTENANCE Edited Result - Final from Last 3 Months or Most Recently Relevant to Health Maintenance Insurance [facility] Care Teams Turbinated Bone Grinder Relationship Specialty Start Date End Date Corey Monsalve MD [address] [place] [address] PCP - General Internal Medicine 12/14/13
[2024-07-04 10:13] LABS: Anion Gap 13 (12-20); Blood Urea Nitrogen 18 mg/dL (9-16); Calcium 9.6 mg/dL (8.4-10.2); Carbon Dioxide 27 mmol/L (22-29); Chloride 109 mmol/L (96-108); Estimated Glomerular Filt Rate > 60; Glucose Random 121 mg/dL (60-115); Potassium 4.5 mmol/L (3.3-5.1); Sodium 144 mmol/L (135-145)
== END 2024-07-04 08:58 | disposition home or self-care (01) ==
LOC: HO.LAB 08:57
PROVIDERS: PCP Internal Medicine; Visit Provider Internal Medicine
DX: E11.9 Type 2 diabetes mellitus without complications (principal); R07.2 Precordial pain
CPT/HCPCS: 36415; 80048

== ENCOUNTER 2024-08-10 13:01 | Outpatient (AMB) | payer OTHER, SELFPAY ==
[2024-08-10 13:06] VITALS: BP 114/72; PULSE 94
--- NOTE | 2024-08-10 13:06 | MHC.OFFVIS ---
Vital Signs 08/10/24 13:06 Height 5 ft 9 in Weight 203 lb 4.259 oz BMI 30.0 BP 114/72 Blood Pressure Location Lt brachial Position Sitting Pulse 94 Pulse Source Pulse Oximeter Intake Visit Reasons: 4 mth fu after cta Manager Clinical Applications Required: Yes Manager Clinical Applications Language: Video Camera Operator Name: voice chen [id number] Allergies No Known Allergies Allergy (Mild, Verified 08/10/24 13:09) NONE Medication List - Last Reconciled 08/10/24 by Tamar Yanes, LEATHER PATCHER-C aspirin 81 mg PO DAILY atorvastatin 40 mg PO BEDTIME blood sugar diagnostic (FreeStyle Lite Strips) As directed cyclobenzaprine 10 mg PO TID docusate sodium 100 mg PO DAILY dulaglutide (Trulicity) mg subcut flash glucose sensor (FreeStyle Abhishek 2 Sensor kit) As directed ibuprofen 800 mg PO TID insulin glargine (Lantus U-100 Insulin) units subcut lancets (TRUEplus Lancets) As directed metformin ER 500 mg PO BID omega 3-hee-cqp-fish oil 300 mg (120 mg- 180mg)-1,000 mg caps PO oxycodone 5 mg PO Q6H PRN pyridoxine (vitamin B6) 50 mg (1/2 x 100 mg) PO DAILY 90 days zolpidem mg PO HPI HPI 4 mth fu after cta: Details: Tex is a 64-year-old male with past medical history of hyperlipidemia, diabetes who underwent cardiac evaluation for chest discomfort. He recently had a CTA of the coronary arteries showing [id number] CAD. Today he reports that he has not had any recurrent chest discomfort in the last few months. His last episode had been pressure-like occurring at rest. Prior to that he did have an episode of discomfort when climbing stairs. He has no shortness of breath, PND, orthopnea or edema. No heart palpitations, lightheadedness, presyncope, syncope. He still admits to being sedentary and does no routine exercise. He has been taking his meds as directed. is present. Certified hide and skin colerer used. [facility] Medical History Chronic back pain Hyperlipidemia Diabetes Family History Brother Heart murmur Blood clot in vein Social History Alcohol intake: former Patient Tobacco Use Status: Former Tobacco user Review of Systems Const All systems reviewed & are unremarkable except as noted in HPI and below ENT Denies dizziness Card Denies chest pain, Denies chest pain at rest, Denies chest pain with activity, Denies rapid heart rate, Denies pedal edema, Denies edema, Denies leg edema, Denies lightheadedness, Denies palpitations, Denies dyspnea, Denies dyspnea on exertion and Denies orthopnea Resp Denies cough, Denies dyspnea and Denies dyspnea on exertion GI Denies hematochezia and Denies change in stool character Musc Denies abnormal gait, Denies limited range of motion, Denies muscle cramps, Denies muscle weakness, Denies numbness, Denies radiating pain into limb, Denies stiffness and Denies tingling Neuro Denies abnormal gait, Denies dizziness, Denies numbness and Denies tingling Endo Denies palpitations Physical Exam Vital Signs: Last Vital Signs Pulse 94 08/10/24 13:06 BP 114/72 08/10/24 13:06 BMI result Body Mass Index 30.0 Const General: cooperative, healthy appearing, comfortable and no acute distress Orientation/consciousness: patient oriented x3 Neck Neck: Yes normal visual inspection Resp Effort & Inspection: normal respiratory effort Auscultation: clear to auscultation bilaterally, no rales, no rhonchi and no wheezes Cardio Rate: regular rate Rhythm: regular rhythm Heart sounds: S1 normal heart sound present, S2 normal heart sound present, no gallops, no murmurs and no rubs Neuro General: patient oriented x3 Extrem General: Yes normal to inspection, No no pedal edema and No calf tenderness Psych Appearance: grossly normal Mental Status: mental status grossly normal Speech and movement: Normal speech and movement present Assessment & Plan Assessment & Plan (1) CAD (coronary artery disease): Comment: CTA of the coronary arteries 07/14/1999 09/27/2039 to 49% stenosis of the proximal segment of the mid LAD, minimal stenosis in the 1st diagonal proximal less than 25%, normal dominant RCA Code(s): I25.10 - Atherosclerotic heart disease of mi'kmaq coronary artery without angina pectoris Category: Medical Plan: Prior reports of chest pressure that had occurred at rest and with activity, none in the last few months. His EKG has shown sinus rhythm with no acute ST or T-wave abnormalities, rate 72. Echocardiogram done 03/07/2024 with EF 63%, no valve abnormalities and no regional wall motion abnormalities. A dobutamine stress echocardiogram done 04/11/2024 showed no echo evidence of ischemia. He does have cardiac risk factors of hyperlipidemia and diabetes and on follow up visit he continued to report symptoms. Then he had a CTA of the coronary arteries on 07/13/2024 which showed mild to moderate CAD. Diagnosis of nonobstructive CAD reviewed with him. He currently has no anginal symptoms. Will continue with risk factor modification and treatment for stable CAD. Continue aspirin indefinitely. Continue atorvastatin with ideal LDL goal less than 70. Will add low-dose metoprolol for cardio protection. Signs and symptoms of angina reviewed with him. Cardiology follow-up 4 months, sooner if needed. (2) Hyperlipidemia: Code(s): E78.5 - Hyperlipidemia, unspecified Category: Medical Plan: [place] LDL goal less than 70 in patient with diabetes. Labs done 07/06/2023 showed LDL 60. Repeat labs done 04/11/2024 showed LDL 104. His atorvastatin was increased to 40 mg daily. Will put him in for a repeat lipid profile and LFT. (3) Diabetes: Code(s): E11.9 - Type 2 diabetes mellitus without complications Category: Medical Plan: Hemoglobin A1c goal less than 7. Followed by his PCP. Plan Time spent on chart review, documentation, interview and assessment Orders: Orders Lipid Panel Today E78.5 - Hyperlipidemia, unspecified Liver Panel Today E78.5 - Hyperlipidemia, unspecified Medications: New metoprolol succinate ER 12.5 mg (1/2 x 25 mg) PO DAILY 45 tabs 1RF 90 days Coding Level of Care Code Est Pt Level 3 (61647) Complex EM visit Add On G2211 Diagnoses CAD (coronary artery disease) I25.10 Hyperlipidemia E78.5 Diabetes E11.9 Time Spent (min) 30
--- OUTSIDE RECORDS SUMMARY | 2024-08-10 14:14 | XMS_ITS | Encounter Summary ---
Author Organization [employer] Address [address] [facility] 7t [place] [address] Care Team Providers Care Property Accountant Name Role Phone Corey Monsalve MD Primary Care Provide r Reason for Visit * Reason Comments Med Refill Encounter Details Date Type Department Care Team (Late st Contact Info) Description 01/23/2024 Refill [facility] MED & PEDS [address] [place] [address] Corey Monsalve MD [address] [place] [address] Chronic low back pain, unspecified back pain [...] Care Team (Late st Contact Info) Description 09/22/2024 9:30 AM EDT Clinical Support [facility] MEDICINE [address] [place] [phone] Vidhya Dickson, TEODORA [address] [place] [address] 10/24/2024 2:00 PM EDT Office Visit [facility] [address] [place] [address] Corey Monsalve MD [address] [place] [address] documented as of this encounter Visit Diagnoses Diagnosis Chronic low back pain, unspecified back pain laterality, unspecified whether sciatica present documented in this encounter Additional Health Concerns Assessment Noted Time PHQ-9 Depression Total Score: 11 024 10:15 AM EST documented as of this encounter Care Teams Property Accountant Relationship Specialty Start Date End Date Corey Monsalve MD [address] [place] [address] PCP - General Internal Medicine 12/14/13 documented as of this encounter
--- OUTSIDE RECORDS SUMMARY | 2024-08-10 14:14 | XMS_ITS | Encounter Summary ---
Author Organization [employer] Address [address] [facility] 7t [place] [address] Care Team Providers Care Calender Operator Name Role Phone Corey Monsalve MD Primary Care Provide r Reason for Visit * Reason Comments Med Refill Encounter Details Date Type Department Care Team (Late st Contact Info) Description 04/21/2024 Refill [facility] MEDICINE [address] [place] [address] Corey Monsalve MD [address] [place], [place] [phone] Social History Tobacco Use Types Packs/Day Years [...] Description 09/22/2024 9:30 AM EDT Clinical Support [facility] MEDICINE [address] [place] [address] Vidhya Dickson RN [address] [place] [address] 10/24/2024 2:00 PM EDT Office Visit [facility] MEDICINE [address] [place] [address] Corey Monsalve MD [address] [place] [address] documented as of this encounter Visit Diagnoses Not on filedocumented in this encounter Additional Health Concerns Assessment Noted Time PHQ-9 Depression Total Score: 3 03/28/20 24 1:17 PM EST documented as of this encounter Care Teams Calender Operator Relationship Specialty Start Date End Date Corey Monsalve MD [address] [place] [address] PCP - General Internal Medicine 12/14/13 documented as of this encounter
--- OUTSIDE RECORDS SUMMARY | 2024-08-10 14:14 | XMS_ITS | Encounter Summary ---
Author Organization [employer] Address [address] [facility] 7t [place] [address] Care Team Providers Care Lettuce Trimmer Name Role Phone Corey Monsalve MD Primary Care Provide r Reason for Visit * Reason Onset Date Comments Med Refill 04/03/2024 Encounter Details Date Type Department Care Team ([facility] st Contact Info) Description 04/03/2024 Telephone [facility] MEDICINE [address] [place] [address] Corey Monsalve MD [address] [place] [address] Med Refill Social History Tobacco Use Types [...] immediate release tablet To be sent to: [facility] - [place], [place] - [address] [place] [address] documented in this encounter Plan of Treatment Upcoming Encounters Date Type Department Care Team (Late st Contact Info) Description 09/22/2024 9:30 AM EDT Clinical Support [facility] MEDICINE [address] [place] [address] Vidhya Dickson RN 505 [place] [address] 10/24/2024 2:00 PM EDT Office Visit [facility] MEDICINE [address] [place] [address] Corey Monsalve MD [address] [place] [address] documented as of this encounter Visit Diagnoses Not on filedocumented in this encounter Additional Health Concerns Assessment Noted Time PHQ-9 Depression Total Score: 3 03/28/20 24 1:17 PM EST documented as of this encounter Care Teams Lettuce Trimmer Relationship Specialty Start Date End Date Corey Monsalve MD [address] [place] [address] PCP - General Internal Medicine 12/14/13 documented as of this encounter
--- OUTSIDE RECORDS SUMMARY | 2024-08-10 14:14 | XMS_ITS | Encounter Summary ---
Author Organization [employer] Address [address] [facility] 7t [place] [address] Care Team Providers Care Regulatory Administrator Name Role Phone Corey Monsalve MD Primary Care Provide r Reason for Visit * Reason Comments Med Refill Encounter Details Date Type Department Care Team ([facility] st Contact Info) Description 03/21/2023 Refill [facility] MEDICINE [address] [place] [address] Corey Monsalve MD 230 [place], [place] [phone] Social History Tobacco Use Types Packs/Day Years [...] Description 09/22/2024 9:30 AM EDT Clinical Support [facility] MEDICINE [address] [place] [address] Vidhya Dickson RN 505 [place] [address] 10/24/2024 2:00 PM EDT Office Visit [facility] MEDICINE [address] [place] [address] Corey Monsalve MD [address] [place] [address] documented as of this encounter Visit Diagnoses Not on filedocumented in this encounter Additional Health Concerns Assessment Noted Time PHQ-9 Depression Total Score: 0 05/19/19 23 2:29 PM EST documented as of this encounter Care Teams Regulatory Administrator Relationship Specialty Start Date End Date Corey Monsalve MD [address] [place] [address] PCP - General Internal Medicine 12/14/13 documented as of this encounter
--- OUTSIDE RECORDS SUMMARY | 2024-08-10 14:14 | XMS_ITS | Encounter Summary ---
Author Organization [employer] [facility] Address [address] [place] [address] 7t [place] [address] Care Team Providers Care Track Inspector Name Role Phone Corey Monsalve MD Primary Care Provide r Encounter Details Date Type Department Care Team (Late st Contact Info) Description 05/26/2022 Orders Only [facility] MEDICINE [address] [place] [address] [place] Newby LPN Social History Tobacco Use [...] Description 09/22/2024 9:30 AM EDT Clinical Support [facility] MEDICINE [address] [place] [address] Vidhya Dickson RN 505 [place] [address] 10/24/2024 2:00 PM EDT Office Visit [facility] MEDICINE [address] [place] [address] Corey Monsalve MD [address] [place] [address] documented as of this encounter Visit Diagnoses Not on filedocumented in this encounter Additional Health Concerns Assessment Noted Time PHQ-9 Depression Total Score: 0 05/19/19 23 2:29 PM EST documented as of this encounter Care Teams Track Inspector Relationship Specialty Start Date End Date Corey Monsalve MD [address] [place], [place] [phone] PCP - General Internal Medicine 12/14/13 documented as of this encounter
--- OUTSIDE RECORDS SUMMARY | 2024-08-10 14:14 | XMS_ITS | Encounter Summary ---
Author Organization [employer] Address [address] [place] [address] 7t [place] [address] Care Team Providers Care Building And Construction Manager Name Role Phone Corey Monsalve MD Primary Care Provide r Encounter Details Date Type Department Care Team (Late st Contact Info) Description 08/31/2022 Orders Only [facility] CHC MED & PEDS [address] [place] [address] Lina Harrell LPN Social History Tobacco Use [...] Description 09/22/2024 9:30 AM EDT Clinical Support [facility] MEDICINE [address] [place] [address] Vidhya Dickson, RN [address] [place] [address] 10/24/2024 2:00 PM EDT Office Visit [facility] [address] [place] [address] Corey Monsalve MD [address] [place] [address] documented as of this encounter Visit Diagnoses Not on filedocumented in this encounter Additional Health Concerns Assessment Noted Time PHQ-9 Depression Total Score: 0 05/19/19 23 2:29 PM EST documented as of this encounter Care Teams Building And Construction Manager Relationship Specialty Start Date End Date Corey Monsalve MD [address] [facility] [place], [place] [phone] PCP - General Internal Medicine 12/14/13 documented as of this encounter
--- OUTSIDE RECORDS SUMMARY | 2024-08-10 14:14 | XMS_ITS | Encounter Summary ---
Author Organization [employer] [facility] Address [address] [place] [address] 7 [place] [address] Care Team Providers Care Sifter Operator Name Role Phone Corey Monsalve MD Primary Care Provide r Encounter Details Date Type Department Care Team (Late st Contact Info) Description 09/10/2022 Abstract [facility] MEDICINE [address] [place] [address] Corey Monsalve MD 230 [place] [address] Social History Tobacco Use Types Packs/Day Years [...] Description 09/22/2024 9:30 AM EDT Clinical Support [facility] [address] [place] [address] Vidhya Dickson RN [address] [place] [address] 10/24/2024 2:00 PM EDT Office Visit [facility] MEDICINE [address] [place] [address] Corey Monsalve MD [address] [place] [address] documented as of this encounter Procedures Procedure [...] documented as of this encounter Care Teams Sifter Operator Relationship Specialty Start Date End Date Corey Monsalve MD [address] [place] [address] PCP - General Internal Medicine 12/14/13 documented as of this encounter
--- OUTSIDE RECORDS SUMMARY | 2024-08-10 14:14 | XMS_ITS | Encounter Summary ---
Author Organization [employer] Address [address] [facility] 7t [place] [address] Care Team Providers Care Laborer [employer] Name Role Phone Corey Monsalve MD Primary Care Provide r Reason for Visit * Reason Comments Med Refill Encounter Details Date Type Department Care Team (Late st Contact Info) Description 11/09/2023 Refill [facility] CHC MED & PEDS [address] [place] [address] Corey Monsalve MD [address] [place] [address] Chronic low back pain, unspecified back pain [...] Description 09/22/2024 9:30 AM EDT Clinical Support [facility] MEDICINE [address] [place] [address] Vidhya Dickson RN 505 [place] [address] 10/24/2024 2:00 PM EDT Office Visit [facility] MEDICINE [address] [place] [address] Corey Monsalve MD [address] [place] [address] documented as of this encounter Visit Diagnoses Diagnosis Chronic low back pain, unspecified back pain laterality, unspecified whether sciatica present documented in this encounter Additional Health Concerns Assessment Noted Time PHQ-9 Depression Total Score: 11 024 10:15 AM EST documented as of this encounter Care Teams Laborer [employer] Relationship Specialty Start Date End Date Corey Monsalve MD [address] [place] [address] PCP - General Internal Medicine 12/14/13 documented as of this encounter
--- OUTSIDE RECORDS SUMMARY | 2024-08-10 14:14 | XMS_ITS | Encounter Summary ---
Author Organization [employer] Address [address] [facility] 7t [place] [address] Care Team Providers Care Mail Carrier And Clerk Name Role Phone Corey Monsalve MD Primary Care Provide r Reason for Visit * Reason Comments Med Refill Encounter Details Date Type Department Care Team (Late st Contact Info) Description 11/08/2023 Refill [facility] CHC MED & PEDS [address] [place] [address] Corey Monsalve MD [address] [place] [address] Chronic low back pain, unspecified back pain [...] Description 09/22/2024 9:30 AM EDT Clinical Support [facility] MEDICINE [address] [place] [address] Vidhya Dickson RN 505 [place] [address] 10/24/2024 2:00 PM EDT Office Visit [facility] MEDICINE [address] [place] [address] Corey Monsalve MD [address] [place] [address] documented as of this encounter Visit Diagnoses Diagnosis Chronic low back pain, unspecified back pain laterality, unspecified whether sciatica present documented in this encounter Additional Health Concerns Assessment Noted Time PHQ-9 Depression Total Score: 11 024 10:15 AM EST documented as of this encounter Care Teams Mail Carrier And Clerk Relationship Specialty Start Date End Date Corey Monsalve MD [address] [place] [address] PCP - General Internal Medicine 12/14/13 documented as of this encounter
--- OUTSIDE RECORDS SUMMARY | 2024-08-10 14:14 | XMS_ITS | Encounter Summary ---
Author Organization [employer] Address [address] [facility] 7t [place] [address] Care Team Providers Care New Accounts Banking Representative Name Role Phone Corey Monsalve MD Primary Care Provide r Reason for Visit * Reason Onset Date Comments Call Back Request 07/07/2024 Encounter Details Date Type Department Care Team ([facility] st Contact Info) Description 07/07/2024 Telephone [facility] MEDICINE [address] [place] [address] Corey Monsalve MD [address] [place] [address] Call Back Request Social History Tobacco Use Types Packs/Day [...] encounter Miscellaneous Notes * Telephone Encounter - Selina Lara - 07/07/2024 8:58 AM EST Tc from pt stating has an appt at [facility] 07/14 and requested a call back to r/s appt with Vidhya. documented in this encounter Plan of Treatment Upcoming Encounters Date Type Department Care Team ([facility] st Contact Info) Description 09/22/2024 9:30 AM EDT Clinical Support [facility] MEDICINE [address] [place] [address] Vidhya Dickson RN [address] [place] [address] 10/24/2024 2:00 PM EDT Office Visit [facility] MEDICINE [address] [place] [address] Corey Monsalve MD [address] [place] [address] documented as of this encounter Visit Diagnoses Not on filedocumented in this encounter Additional Health Concerns Assessment Noted Time PHQ-9 Depression Total Score: 3 03/28/20 24 1:17 PM EST documented as of this encounter Care Teams New Accounts Banking Representative Relationship Specialty Start Date End Date Corey Monsalve MD [address] [place] [address] PCP - General Internal Medicine 12/14/13 documented as of this encounter
--- OUTSIDE RECORDS SUMMARY | 2024-08-10 14:14 | XMS_ITS | Clinical Summary ---
Author Organization [employer] Address [address] [place] [address] [address] [place] [address] Care Team Providers Care Cane Burner Name Role Phone Corey Monsalve MD [...] 150 mL 023 Active Continuous Blood Gluc Flag Signalman (FreeStyle Abhishek 2 Gower) deviceIndications :Type 2 diabetes mellitus without complication, with long-term current use of insulin ([facility]) Use daily 1 each 023 Active Blood [...] coma, with long-term current use of insulin ([facility]) TEST BLOOD SUGAR FOUR TIMES DAILY DIRECTED [...] complication, with long-term current use of insulin ([facility]) USE DIRECTED DAILY. CHANGE EVERY 14 DAYS . 2 each 025 Active metFORMIN XR (Glucophage-XR) 500 MG 24 hr tabletIndications :Type 2 diabetes mellitus without complication, with long-term current use of insulin ([facility]) TAKE 2 TABLETS BY MOUTH TWICE DAILY IN THE MORNING AND IN THE EVENING WITH MEALS 120 tablet 3 025 Active Trulicity 1.5 MG/0.5ML solution auto-injectorIndi cations:Type 2 diabetes mellitus without complication, with long-term current use of insulin ([facility]) INJECT ONE PEN (=1.5MG) SUBCUTANEOUSLY ONCE A WEEK DIRECTED 2 mL 6 025 Active omega-3 (Fish Oil) 1000 MG capsuleIndication s:Mixed hyperlipidemia TAKE 1 CAPSULE BY MOUTH THREE TIMES DAILY 270 capsule 1 025 Active BD Insulin Syringe U/F 31G X 09/22 0.5 ML miscIndications:T ype 2 diabetes mellitus without complication, with long-term current use of insulin ([facility]) USE FOUR TIMES DAILY 120 each 025 Active Lantus 100 UNIT/ML injection INJECT 40 UNITS SUBCUTANEOUSLY TWICE DAILY IN THE MORNING AND IN THE EVENING 30 mL 1 025 Active ibuprofen 800 MG tabletIndications :Chronic [...] if needed for severe pain. 112 tablet 025 Active atorvastatin (Lipitor) 40 MG tablet Take 40 mg by mouth at bedtime. 025 Active atorvastatin (Lipitor) 20 MG tablet TAKE 1 TABLET BY MOUTH EVERY DAY 90 tablet 1 025 2024 Discontinued( Dose adjustment) oxyCODONE (Roxicodone) 5 MG immediate release tabletIndications :Chronic low back pain, unspecified back pain laterality, unspecified whether sciatica present TAKE 1 TABLET BY MOUTH EVERY 6 HOURS NEEDED FOR SEVERE PAIN 112 tablet 025 2024 Discontinued( Reorder (will not trigger notification to Pharmacy)) Active Problems Problem Noted Date Diagnosed Date Overweight (BMI 25.0-29.9) 08/01/2024 Assessment & Plan (08/01/2024 9:00 AM EDT): Patient has been counseled and educated about diet and exercise. Personal goal of weight loss discussedPatient has comorbidity of: DM Long-term current use of opiate analgesic 2024 Abnormal EKG 11/16/2023 Assessment & Plan (08/01/2024 9:10 AM EDT): Previous EKG showed mild repolarization abnormalities, likely no specific, but given multiple risk factors was referred for outpatient stress test. Patient was seen 02/29/[address] saravia who recommended a dobutamine stress test and ECHO A dobutamine stress echocardiogram was done 04/11/2024 showed no echo evidence of ischemia. Given persistent of complaints Anesthesia Director recommended Coronary CT that was done 07/17/2024 that showed: 40-49% stenosis in the proximal subsegmental of the mid LAD. Pt has a follow up with operations architect Assessment & Plan (03/28/2024 1:42 PM EST): [...] stress test Nephrolithiasis 02/02/2023 Assessment & Plan (08/01/2024 8:58 AM EDT): [place] [facility] with c/o back pain and intermitent hematuria. CT showed nephrolithiasis. Treated with Flomax and referred to Dr Chandler rain Urologvitaliy pt last seen 05/23/2024 Assessment & Plan (03/28/2024 1:43 PM EST): [place] [facility] [place] with c/o back pain and intermitent hematuria. CT showed nephrolithiasis. Treated with Flomax and referred to Dr Chandler rain Urologvitaliy pt last seen 11/22/2023. Assessment & Plan (11/16/2023 10:35 AM EDT): [place] [facility] [place] with c/o back pain and intermitent hematuria. CT showed nephrolithiasis. Treated with Flomax and referred to Dr Chandler rain Urologvitaliy pt last seen 03/2023. Pt tells me he has a follow up with him the 16 of this month Assessment & Plan (06/29/2023 9:58 AM EST): Recently seen [place] [facility] [place]) with c/o back pain and intermitent hematuria. CT showed nephrolithiasis. Treated with Flomax and referred to Dr Chandler rain Urologvitaliy pt initially seen 02/12/2023 and subsequently in 03/2023 6 month follow up was recommended Assessment & Plan (02/02/2023 10:11 AM EDT): Recently seen [place] [facility] [place]) with c/o back pain and intermitent [...] microscopic hematuria Evaluated by Urology specialist at [facility] last seen in February 27 2011,underwent a [...] retinal vein occlusion 05/19/2022 Assessment & Plan (08/01/2024 9:00 AM EDT): Under the care of Dr. Virgilio Genao retinal specialist Treated with Avastin Assessment & Plan (11/16/2023 9:28 AM EDT): Under the care of Dr. Virgilio Genao retinal specialist Treated with Avastin Assessment & Plan (05/19/2022 2:58 PM EST): Under [facility] care of Dr. Virgilio Genao retinal specialist Treated with Avastin [facility] 05/19/2022 Assessment & Plan (08/01/2024 9:06 AM EDT): PSA 06/08/2024: Normal Colonoscopy: Normal : 04/05/2013 [facility] for Colonoscopy . Seen at [facility] on 07/12/2024 has appointment for EGD/Colonoscopy 08/17/2024 Assessment & Plan (11/16/2023 9:26 AM EDT): Colonoscopy: Normal : 04/05/2013 [facility] back for Colonoscopy Pt has expected appt with [facility] on 01/13/24 @11AM for Colon Cancer Screening. PSA 03/02/2023: Normal Assessment & Plan (06/29/2023 10:01 AM EST): Colonoscopy: Normal : 04/05/2013 [facility] Will refer back for Colonoscopy PSA 03/02/2023: Normal Assessment & Plan (05/19/2022 2:59 PM EST): Colonoscopy: Normal : 04/05/2013 [facility] Venous retinal branch occlusion 11/20/2014 Chronic low [...] no longer under the care of the [facility]. Pt declines steroid injections. Pt finished a course of PT without improvement. Previously I recommended he be seen again at [facility] for re-evaluation given his ongoing chronic low back pain. Pt was offered steroid injections but he declined. Repeat MRI of LS spine 08/25/2017 showed post op and mild superimposed degenerative changes only continue current regimen. He might benefit from [employer] services Hyperlipidemia 10/21/2011 Assessment & Plan (08/01/2024 9:00 AM EDT): Pt here for a f/u Patient with elevated lipids. Most recent lipid profile from: Lab Results Component Value Date TRIG 282 (H) 04/11/2024 TRIG 117 07/06/2023 CHOL 199 04/11/2024 CHOL 120 07/06/2023 LDLCHOLCAL 104 (H) 04/11/2024 LDLCHOLCAL 60 07/06/2023 HDL 39 (L) 04/11/2024 HDL 37 (L) 07/06/2023 Pt on Atorvastatin recently increased to 40 mg po q pm by Cardiology and Fish oil 1000mg po TID. In the past Pravachol game him muscle pain and Lovastatin caused his LFT'S to go up. Plan: Continue current regimen. advised to try to adhere to a low cholesterol diet, counseled and educated about diet and exercise, Patient encouraged to come up with a personal goal for weight loss. Assessment & Plan (03/28/2024 1:43 PM EST): [...] 2 diabetes mellitus 10/21/2011 Assessment & Plan (08/01/2024 9:11 AM EDT): Pt here for a f/u DM controlled He is on a regimen of Lantus 40 in AM and 40 PM ( total dose of 80 ), Trulicity 1.5 once a week, Metformin XR 500 mg 2 tabs po BID and Humalog lispro sliding scale again po q pm. His Hgb A1c 08/01/2024 showed: 6.9 from 6.6 Eye exam. Pt tells me he was seen in May He has also seen Dr. Virgilio Genao [...] on a daily basis Assessment & Plan (03/28/2024 1:45 PM EST): [...] Encounters Date Type Department Care Team Description 08/01/2024 9:00 AM EDT Office Visit [facility] [address] [place] [phone] Corey Monsalve MD Abnormal EKG (Primary Dx); Type 2 diabetes mellitus without complication, with long-term current use of insulin ([facility]); Nephrolithiasis; Mixed hyperlipidemia; History of retinal vein occlusion; Overweight (BMI 25.0-29.9); Dietary counseling; Exercise counseling; Preventative health care; Encounter for immunization 08/01/2024 Travel 07/25/2024 Refill [facility] [address] [place] [address] Corey Monsalve MD Chronic low back pain, unspecified back pain laterality, unspecified whether sciatica present 07/24/2024 Refill [facility] [address] [place] [address] Vidhya Dickson RN Chronic low back pain, unspecified back pain laterality, unspecified whether sciatica present 07/24/2024 Telephone [facility] [address] [place] [address] Corey Monsalve MD Med Refill 07/24/2024 Patient Outreach [address] [address] Corey Monsalve MD Pre-visit Planning (SDOH Screening negative and Tobacco screening negative) 07/21/2024 9:30 AM EDT Clinical Support [address] [address] Vidhya Dickson RN Chronic low back pain, unspecified back pain laterality, unspecified whether sciatica present (Primary Dx); Long-term current use of opiate analgesic 07/21/2024 Telephone [facility] [address] [place] [address] Vidhya Dickson, retirement assistant Question 07/21/2024 Travel 07/19/2024 Telephone [facility] [address] [place] [address] Corey Monsalve MD Chart Prep 07/10/2024 Refill [facility] [address] [place] [address] Corey Monsalve MD Chronic low back pain, unspecified back pain laterality, unspecified whether sciatica present 07/07/2024 Travel 07/07/2024 Telephone [facility] [address] [place] [address] Vidhya Dickson, RN health nurse 07/07/2024 Telephone [facility] [address] [place] [address] Corey Monsalve MD Call Back Request 07/04/2024 Orders Only GENERIC EXTERNAL DATA DEPARTMENT Provider, Generic External Data 06/30/2024 Refill [facility] [address] [place] [address] Corey Monsalve MD 2024 Refill [facility] [address] [place] [address] Corey Monsalve MD Type 2 diabetes mellitus without complication, with long-term current use of insulin (CMS/HCC); Chronic low back pain, unspecified back pain laterality, unspecified whether sciatica present 06/25/2024 Refill [facility] [address] [place] [address] Corey Monsalve MD Mixed hyperlipidemia 06/20/2024 Refill [facility] [address] [place] [address] Corey Monsalve MD Type 2 diabetes mellitus without complication, with long-term current use of insulin (CMS/HCC) 06/08/2024 Orders Only GENERIC EXTERNAL DATA DEPARTMENT Provider, Generic External Data 05/30/2024 Refill [facility] [address] [place] [address] Corey Monsalve MD Chronic low back pain, unspecified back pain laterality, unspecified whether sciatica present 05/24/2024 Refill [facility] [address] [place] [address] Michelle Vargas MD Chronic low back pain, unspecified back pain laterality, unspecified whether sciatica present 05/24/2024 Refill [facility] [address] [place] [address] Corey Monsalve MD Type 2 diabetes mellitus without complication, with long-term current use of insulin ([facility]); Chronic low back pain, unspecified back pain laterality, unspecified whether sciatica present 05/22/2024 Refill [facility] [address] [facility] [place] [address] Corey Monsalve MD Type 2 diabetes mellitus without complication, with long-term current use of insulin ([facility]) 05/19/2024 Orders Only [facility] External Provider, [facility] from Last 3 Months Immunizations Name Administration [...] tox oid, preservative free, adsorbed 04/02/2004 Tdap 08/01/2024,06/21/2014 Social History Tobacco Use Types Packs/Day Years Used Date Smoking Tobacco: Former Cigarettes Q uit: 08/01/2001 Passive Smoke Exposure: Past Smokeless Tobacco: Never Tobacco Cessation:Counseling Given: Not Answered Depression Answer Date Recorded Patient Health Questionnaire-9 Score 3 03/28/2024 Patient Health Questionnaire-9 Score 3 03/28/2024 Last PHQ-9: Questionnaire Data Not on file 1 05/28/2023 Housing Stability Answer Date Recorded What is your housing situation today? I have precious [place] 07/24/[address] you li ve. Do you have problems with any of the following? None of the above 07/24/2024 Food Insecurity Answer Date Recorded Within the past 12 months, y ou worried that your food would run out before you got money to buy more: Never True 07/24/2024 Within the past 12 months,th e food you bought just didn't last and you didn't have enough money to get more: Never True Transportation Answer Date Recorded In the past 12 months, has l ack of transportation kept you from medical appts, meetings, work or from getting things needed for daily living? No 07/24/2024 Utilities Answer Date Recorded In the past 12 months, has t he electric, gas, oil or water company threatened to shut off services in your home? No 07/24/2024 Depression Answer Date Recorded Patient Health Questionnaire-2 [...] Sign Reading Time Taken Comments Blood Pressure 124/83 08/01/2024 8:52 AM EDT Pulse 100 08/01/2024 8:52 AM EDT Temperature 36.2 ??C (97.1 ??F) 08/01/2024 8:52 AM ED T Respiratory Rate 20 08/01/2024 8:52 AM EDT Oxygen Saturation 98% 08/01/2024 8:52 AM EDT Inhaled Oxygen Concentration - - Weight 92.5 kg (204 lb) 08/01/2024 8:52 AM EDT Height 175.3 cm (5' 9 ) 08/01/2024 8:52 AM EDT Body Mass Index 30.13 08/01/2024 8:52 AM EDT Plan of Treatment Upcoming Encounters Date Type Department Care Team (Late st Contact Info) Description 09/22/2024 9:30 AM EDT Clinical Support [facility] [address] [place] [phone] Vidhya Dickson RN [address] [place] [address] 10/24/2024 2:00 PM EDT Office Visit [facility] [address] [place] [address] Corey Monsalve MD [address] [place] [address] Health Maintenance Due Date Last Done Comments [...] Colonoscopy 04/05/2023 04/05/2013 Colorectal Cancer Screening 04/05/2023 Diabetes: Hemoglobin A1C 02/01/2025 025, 03/28/2024, 11/16/2023, Additional history exists Alcohol/Substance Use Screening 03/28/2025 03/28/2024 Depression Screening 03/28/2025 03/28/2024, 03/28/20 24 Diabetes: Urine Protein Screening 04/11/2025 04/11/2024, 10/01/2022, 10/07/2021, Additional history exists Lipid Panel 04/11/2025 04/11/2024, 06/11, 10/01/2022, Additional history exists SDOH Screening 08/01/2025 08/01/2024 Tobacco Screening 08/01/2025 08/01/2024 DTaP/Tdap/Td Vaccines (3 - Td or Tdap) 08/01/2034 08/01/2024, 06/21/2014, 04/02/2004 Hepatitis A Vaccines Aged Out 08/19/2017 No [...] Procedure Name Priority Date/Time Associated Diagnosis Comments POCT GLYCATED HEMOGLOBIN, TOTAL Routine 08/01/2024 9:09 AM EDT Type 2 diabetes mellitus without complication, with long-term current use of insulin ([facility]) POCT GLUCOSE Routine 08/01/2024 9:00 AM EDT Type 2 diabetes mellitus without complication, with long-term current use of insulin ([facility]) POCT MAINOR-14 URINE DRUG SCREEN Routine 07/21/2024 9:39 AM EDT Long-term current use of opiate analgesic Chronic low back pain, unspecified back pain laterality, unspecified whether sciatica present BASIC METABOLIC PANEL Routine 07/04/2024 9:04 AM EST PSA, TOTAL Routine 06/08/2024 8:13 AM EST BASIC METABOLIC PANEL Routine 06/08/2024 8:13 AM EST US RENAL BI Routine 05/22/2024 1:01 PM EST ALBUMIN, RANDOM URINE W/CREATININE Routine 04/11/2024 10:48 AM EST Type 2 diabetes mellitus without complication, with long-term current use of insulin (CMS/HCC) LIPID PANEL, STANDARD Routine 04/11/2024 10:48 AM EST Mixed hyperlipidemia HEPATITIS C AB W/REFL TO HCV RNA, QN, PCR Routine 10/01/2022 8:10 AM EDT Type 2 diabetes mellitus without complication, with long-term current use of insulin (CMS/HCC) HM COLONOSCOPY Routine 04/05/2013 from Last 3 Months or Most Recently Relevant to Health Maintenance Results * (ABNORMAL) POCT HGB A1C (08/01/2024 9:09 AM EDT) Hemoglobin A1C 6.9(A) 4.0 - 6.0 % QC Media Lot # [id number] Lot# Expiration Date Blood 08/01/2024 9:09 AM EDT us Corey Sung MD POINT OF CARE TEST EN TER/EDIT ORDERABLES Final Result * POCT Glucose (08/01/2024 9:00 AM EDT) Glucose Blood, POC 151 60 - 200 mg/dL QC Media Lot # [id number] Lot# Expiration Date Blood Capillary blood specimen / Unknown 08/01/2024 9:00 AM EDT us Corey Sung MD POINT OF CARE TEST EN TER/EDIT ORDERABLES Final Result * POCT MAINOR-14 Urine Drug Screen (07/21/2024 9:39 AM EDT) Oxycodone Screen, Urine Positive Urine Urine specimen obtained by clean catch procedure / Unknown 07/21/2024 9:39 AM EDT Narrative Vidhya Dickson RN - 07/21/2024 9:39 AM EDT .UTOX cup Lot#[id number] Exp. 12/27/25 Internal Pass Control us Corey Sung MD POINT OF CARE TEST EN TER/EDIT ORDERABLES Final Result * (ABNORMAL) Basic Metabolic Panel (07/04/2024 9:04 AM EST) Only the most recent of2 resultswithin the time period is included. Sodium 144 135 - 145 mmol/L [facility] Potassium 4.5 3.3 - 5.1 mmol/L [facility] Chloride 109(H) 96 - 108 mmol/L [facility] Carbon Dioxide 27 22 - 29 mmol/L [facility] Anion Gap 13 12 - 20 [facility] Urea Nitrogen (BUN) 18(H) 9 - 16 mg/dL [facility] Creatinine, Serum 0.80 0.5 - 1.4 mg/dL [facility] Estimated Glomerular Filt Rate >60 [facility] Comment:Chronic Kidney Disea se: Estimated GFR < 60 mL/min/[id number] Kidney Disease: Estimated GFR < 15 mL/min/1.73m2 Glucose 121(H) 60 - 115 mg/dL [facility] Calcium 9.6 8.4 - 10.2 mg/dL [facility] 07/04/2024 9:04 AM EST 07/04/2024 9:04 AM EST us Generic External Data Provider LAB BLOOD ORDERAB LES Final Result [facility] [address] [place] [phone] * PSA,Total (06/08/2024 8:13 AM EST) Prostate Specific Antigen 0.19 <0.05 - 4.0 ng/mL [facility] Comment:PSA methodology: Abb castillo Knight i ChemiluminescentMicroparticle Immunoassay (CMIA) 06/08/2024 8:13 AM EST 06/08/2024 8:13 AM EST us Generic External Data Provider LAB BLOOD ORDERAB LES Final Result [facility] [address] [facility] [place] [address] [phone] * US RENAL BI (05/22/2024 1:01 PM EST) Anatomical Region Laterality Modality Abdomen Ultrasound 05/22/2024 1:01 PM EST Narrative 05/22/2024 1:02 PM EST ? [facility] ?[address] ?[place] [address] ? Ultrasound Report ? Signed ? Patient: Khan Martinez,Tex ?MR# ?? : [id number] ? : 1960 ?Acct:[id number] ? Age/Sex: 63 / M ?ADM Date: 05/19/24 ? Loc: HO.US ? Attending Dr: Sondra SERRANO ? Ordering Physician: Sondra Toney ?? Date of Service: 05/19/24 ?? Procedure(s): US renal BI ?? Accession Number(s): [id number] ? cc: Corey Spears MD; Sondra Toney [...] DD/ 1301 ? TD/TT: 05/22/24 1301 ? Plaster Form Maker: ? Procedure Note Donotuseinterpreter, Image - 05/22/2024 [place] [address] Ultrasound Report Signed Patient: Tex AlstonMR# : [id number] : 1960Acct:[id number] Age/Sex: 63 / MADM Date: 05/19/24 Loc: HO.US Attending Dr: Sondra SERRANO Ordering Physician: Snodra Toney Date of Service: 05/19/24 Procedure(s): US renal BI Accession Number(s): [id number] cc: Corey Spears MD; Sondra Toney CLINICAL [...] 05/22/24 1302 DD/ 1301 TD/TT: 05/22/24 1301 Plaster Form Maker: us [facility] External Provider IMG US PROCEDURES Edited Result - Final * Albumin, Random Urine W/Creatinine (04/11/2024 10:48 AM EST) Creatinine, Urine 123.28 mg/dL [facility] Microalbumin Urine 24.0 mg/L [facility] Microalbum Creatinine Ratio Ur 19.4 <30 ug/mg cr [facility] Comment:Albumin/Creatinine R atio Reference Ranges: Normal: < 30 ug/mg creatinine Microalbuminuria: 30 - 300 ug/mg creatinineClinical Albuminuria: > 300 ug/mg creatinine Urine (Urine, Random) 04/11/2024 10:48 AM EST 04/11/2024 11:41 AM EST us Corey Sung MD LAB URINE ORDERABLES Final Result [facility] [address] [place] [phone] * (ABNORMAL) Lipid Panel, Standard (04/11/2024 10:48 AM EST) Triglycerides 282(H) <150 mg/dL [facility] Comment:Desirable Triglyceri de: less than 150 mg/dLBorderline High Triglyceride 150-199 mg/dLHigh Triglyceride: 200-499 mg/dLVery High Triglyceride: greater than or equal to 5OO mg/dL Cholesterol 199 <200 mg/dL [facility] Comment:Desirable Cholestero l: less than 200 mg/dLBorderline High Cholesterol: 200-239 mg/dLHigh Cholesterol: greater than 239 mg/dL LDL Cholesterol Calculated 104(H) <100 mg/dL [facility] Comment:Desirable LDL: less than 100 mg/dLNear Optimal/Above Optimal LDL: 110- 129 mg/dLBorderline High LDL: 130-159 mg/dLHigh LDL: 160-189 mg/dLVery High LDL: greater than or equal to 190 mg/dL HDL Cholesterol 39(L) >40 mg/dL [facility] Comment:Desirable HDL: great er than 40 mg/dL Note: This HDL assay may give artificially low results in patients with liver disease. Blood Venous blood specimen / Unknown 04/11/2024 10:48 AM EST 04/11/2024 12:58 PM EST Corey Sung MD LAB BLOOD ORDERABLES Final Result [facility] [address] [place] [phone] * Hepatitis C Antibody with Reflex to HCV, RNA, Quantitative, Real-Time PCR (10/01/2022 8:10 AM EDT) Hepatitis C Antibody NON-REACT FAM NON-REACT FAM [employer] Index 0.06 <1.00 [employer] Comment: HCV antibody was non-reactive. There is no laboratory evidence of HCV infection. In most cases, no further action is required. However, if recent HCV exposure is suspected, a test for HCV RNA (test code 09594) is suggested. For additional information please refer to http://education.365webcall/faq/OVE24x8 (This link is being provided for informational/ educational purposes only.) Blood Venous blood specimen / Unknown 10/01/2022 8:10 AM EDT 10/01/2022 8:10 AM EDT Narrative [facility] - 10/02/2022 5:11 PM EDT FASTING:YES FASTING: YES Result [facility] Corey Sung MD LAB BLOOD ORDERABLES Final Result Performing Organization Address City/[facility]/ZIP Co de Phone Number [facility] [address], [place] [address] [employer] [address] [place] [address] * Hm Colonoscopy (04/05/2013) Colonoscopy Normal Normal 04/05/2013 Narrative Yee Farias - 04/05/2013 10:55 AM EST Recommended 10 year follow up ( see scanned notes) Historical Provider HEALTH MAINTENANCE Edited Result - Final from Last 3 Months or Most Recently Relevant to Health Maintenance [place] [address] [address] - [employer] * Guarantor: Tex Alston Account Type Relation to Patient Date of Phone Billing Address Personal/Family Self [address] [id number] Care Teams Cane Burner Relationship Specialty Start Date End Date Corey Monsalve MD [address] [place] [phone] PCP - General Internal Medicine 12/14/13
--- OUTSIDE RECORDS SUMMARY | 2024-08-10 14:14 | XMS_ITS | Encounter Summary ---
Author Organization [employer] Address 75 [facility] 7t [place] [address] Care Team Providers Care Auto Air Conditioning Mechanic Name Role Phone Corey Monsalve MD Primary Care Provide r Reason for Visit * Reason Comments Med Refill Encounter Details Date Type Department Care Team (Late st Contact Info) Description 08/13/2023 Refill [facility] 230 [place] [address] Corey Monsalve MD 230 [place], [place] [phone] Social History Tobacco Use Types Packs/Day Years [...] Description 09/22/2024 9:30 AM EDT Clinical Support [facility] [address] [place] [phone] Vidhya Dickson RN 505 [place] [address] 10/24/2024 2:00 PM EDT Office Visit [facility] [address] [place] [address] Corey Monsalve MD [address] [place] [address] documented as of this encounter Visit Diagnoses Not on filedocumented in this encounter Additional Health Concerns Assessment Noted Time PHQ-9 Depression Total Score: 11 024 10:15 AM EST documented as of this encounter Care Teams Auto Air Conditioning Mechanic Relationship Specialty Start Date End Date Corey Monsalve MD [address] [place] [phone] PCP - General Internal Medicine 12/14/13 documented as of this encounter
--- OUTSIDE RECORDS SUMMARY | 2024-08-10 14:14 | XMS_ITS | Encounter Summary ---
Author Organization [employer] Address 75 [facility] 7 [place] [address] Care Team Providers Care Case Planner Name Role Phone Corey Monsalve MD Primary Care Provide r Reason for Visit * Reason Onset Date Comments Med Refill 11/08/2023 Encounter Details Date Type Department Care Team (Late st Contact Info) Description 11/08/2023 Refill [facility] 230 [place] [address] Corey Monsalve MD 230 [place] [address] Chronic low back pain, unspecified back pain [...] immediate release tablet To be sent to: [facility] - [place], [place] - [address] [place] [address] documented in this encounter Plan of Treatment Upcoming Encounters Date Type Department Care Team (Late st Contact Info) Description 09/22/2024 9:30 AM EDT Clinical Support [facility] [address] [place] [phone] Vidhya Dickson RN 505 [place] [address] 10/24/2024 2:00 PM EDT Office Visit [facility] [address] [place] [phone] Corey Monsalve MD [address] [place] [address] documented as of this encounter Visit Diagnoses Diagnosis Chronic low back pain, unspecified back pain laterality, unspecified whether sciatica present documented in this encounter Additional Health Concerns Assessment Noted Time PHQ-9 Depression Total Score: 11 024 10:15 AM EST documented as of this encounter Care Teams Case Planner Relationship Specialty Start Date End Date Corey Monsalve MD 230 [place] [address] PCP - General Internal Medicine 12/14/13 documented as of this encounter
--- OUTSIDE RECORDS SUMMARY | 2024-08-10 14:14 | XMS_ITS | Encounter Summary ---
Author Organization [employer] [facility] Address [address] [place] [address] 7 [place] [address] Care Team Providers Care Instructor Technical Training Name Role Phone Corey Monsalve MD Primary Care Provide r Reason for Visit * Reason Onset Date Comments Pa form 06/02/2022 Encounter Details Date Type Department Care Team ([facility] st Contact Info) Description 06/02/2022 Telephone [facility] 230 [place] [address] Corey Monsalve MD 230 [place] [address] Pa form Social History Tobacco Use Types [...] Received PA form for Susan from PCP's lead assistant manager. Handed to PA specialist to process. * [...] Description 09/22/2024 9:30 AM EDT Clinical Support [address] [address] Vidhya Dickson, TEODORA 505 [place] [address] 10/24/2024 2:00 PM EDT Office Visit [address] [address] Corey Monsalve MD [address] [place] [address] documented as of this encounter Visit Diagnoses Not on filedocumented in this encounter Additional Health Concerns Assessment Noted Time PHQ-9 Depression Total Score: 0 05/19/19 23 2:29 PM EST documented as of this encounter Care Teams Instructor Technical Training Relationship Specialty Start Date End Date Corey Monsalve MD [address] [place] [address] PCP - General Internal Medicine 12/14/13 documented as of this encounter
--- OUTSIDE RECORDS SUMMARY | 2024-08-10 14:14 | XMS_ITS | Encounter Summary ---
Author Organization [employer] Address 75 [facility] 7t [place] [address] Care Team Providers Care Aircraft Assembler Name Role Phone Corey Monsalve MD Primary Care Provide r Reason for Visit * Reason Comments Med Refill Encounter Details Date Type Department Care Team (Late st Contact Info) Description 07/25/2024 Refill [facility] MED[facility]INE 230 [place] [address] Corey Monsalve MD 230 [place], [place] [phone] Chronic low back pain, unspecified back pain [...] 9:30 AM EDT Clinical Support [facility] MEDICINE [address] [place] [phone] Vidhya Dickson, TEODORA 505 [place] [address] 10/24/2024 2:00 PM EDT Office Visit [facility] MEDICINE [address] [place] [address] Corey Monsalve MD [address] [place] [phone] documented as of this encounter Visit Diagnoses Diagnosis Chronic low back pain, unspecified back pain laterality, unspecified whether sciatica present documented in this encounter Additional Health Concerns Assessment Noted Time PHQ-9 Depression Total Score: 3 03/28/20 24 1:17 PM EST documented as of this encounter Care Teams Aircraft Assembler Relationship Specialty Start Date End Date Corey Monsalve MD [address] [place] [address] PCP - General Internal Medicine 12/14/13 documented as of this encounter
--- OUTSIDE RECORDS SUMMARY | 2024-08-10 14:14 | XMS_ITS | Encounter Summary ---
Author Organization [employer] Address 75 [facility] 7t [place] [address] Care Team Providers Care Oven Equipment Repairer Name Role Phone Corey Monsalve MD Primary Care Provide r Reason for Visit * Reason Comments Med Refill Encounter Details Date Type Department Care Team (Late st Contact Info) Description 11/05/2023 Refill [facility] MED & PEDS [address] [place] [address] Corey Monsalve MD 230 [place] [address] Chronic low back pain, unspecified back pain [...] Description 09/22/2024 9:30 AM EDT Clinical Support [facility] MEDICINE [address] [place] [phone] Vidhya Dickson RN 505 [place] [address] 10/24/2024 2:00 PM EDT Office Visit [facility] MEDICINE [address] [place] [address] Corey Monsalve MD [address] [place] [address] documented as of this encounter Visit Diagnoses Diagnosis Chronic low back pain, unspecified back pain laterality, unspecified whether sciatica present documented in this encounter Additional Health Concerns Assessment Noted Time PHQ-9 Depression Total Score: 11 024 10:15 AM EST documented as of this encounter Care Teams Oven Equipment Repairer Relationship Specialty Start Date End Date Corey Monsalve MD [address] [place] [address] PCP - General Internal Medicine 12/14/13 documented as of this encounter
--- OUTSIDE RECORDS SUMMARY | 2024-08-10 14:14 | XMS_ITS | Encounter Summary ---
Author Organization [employer] [facility] Address [address] [place] [address] 7 [place] [address] Care Team Providers Care Women'S Studies Lecturer Name Role Phone Corey Monsalve MD Primary Care Provide r Encounter Details Date Type Department Care Team (Late st Contact Info) Description 07/31/2022 Orders Only [facility] MED & PEDS [address] [place] [address] Lina Harrell LPN Social History Tobacco Use [...] Description 09/22/2024 9:30 AM EDT Clinical Support [facility] MEDICINE 230 [place] [address] Vidhya Dickson RN 505 [place] [address] 10/24/2024 2:00 PM EDT Office Visit [facility] 230 [place] [address] Corey Monsalve MD 230 [place] [address] documented as of this encounter Visit Diagnoses Not on filedocumented in this encounter Additional Health Concerns Assessment Noted Time PHQ-9 Depression Total Score: 0 05/19/19 23 2:29 PM EST documented as of this encounter Care Teams Women'S Studies Lecturer Relationship Specialty Start Date End Date Corey Monsalve MD 230 [place] [address] PCP - General Internal Medicine 12/14/13 documented as of this encounter
--- OUTSIDE RECORDS SUMMARY | 2024-08-10 14:15 | XMS_ITS | Encounter Summary ---
Author Organization [employer] [facility] Address [address] [place] [address] 7 [place] [address] Care Team Providers Care Final Inspector Name Role Phone Corey Monsalve MD Primary Care Provide r Encounter Details Date Type Department Care Team (Late st Contact Info) Description 05/13/2022 Orders Only [facility] MED & PEDS 505 [place] [address] Lina Harrell LPN Social History Tobacco Use [...] Description 09/22/2024 9:30 AM EDT Clinical Support [facility] [address] [place] [address] Vidhya Dickson, RN 505 [place] [address] 10/24/2024 2:00 PM EDT Office Visit [facility] 230 [place] [address] Corey Monsalve MD 230 [place] [address] documented as of this encounter Visit Diagnoses Not on filedocumented in this encounter Care Teams Final Inspector Relationship Specialty Start Date End Date Corey Monsalve MD [address] [place] [phone] PCP - General Internal Medicine 12/14/13 documented as of this encounter
== END 2024-08-10 13:38 | disposition home or self-care (01) ==
LOC: HO.HCS 13:02
PROVIDERS: PCP Internal Medicine; Visit Provider Nurse Practitioner Family
DX: I25.10 Atherosclerotic heart disease of native coronary artery without angina pectoris (principal); E78.5 Hyperlipidemia, unspecified; E11.9 Type 2 diabetes mellitus without complications
CPT/HCPCS: 99213; G2211

== ENCOUNTER → 2024-08-10 13:01 | Outpatient (BNVA) | payer OTHER, SELFPAY | PROVIDERS: PCP Internal Medicine; Visit Provider Nurse Practitioner Family | DX: I25.10 Atherosclerotic heart disease of native coronary artery without angina pectoris (principal); E78.5 Hyperlipidemia, unspecified; E11.9 Type 2 diabetes mellitus without complications | CPT/HCPCS: 99212 ==

== ENCOUNTER 2024-10-26 08:21 | Outpatient (REF) | payer OTHER, SELFPAY ==
--- OUTSIDE RECORDS SUMMARY | 2024-10-26 08:32 | XMS_ITS | Encounter Summary ---
Author Organization [employer] Address 75 [facility] 7t [place] [address] Care Team Providers Care Flight Test Engineer Name Role Phone Corey Monsalve MD Primary Care Provide r Reason for Visit * Reason Comments Med Refill Encounter Details Date Type Department Care Team ([facility] st Contact Info) Description 07/25/2024 Refill [facility] 230 [place] [address] Corey Monsalve MD 230 [place] [address] Chronic low back pain, unspecified back pain [...] Care Team (Late st Contact Info) Description 12/22/2024 9:00 AM EDT Clinical Support [facility]INE [address] [place] [address] Vidhya Dickson, TEODORA 505 [place] [address] 01/11/2025 10:00 AM EDT Office Visit [facility] [address] [place] [address] Corey Monsalve MD [address] [place] [address] documented as of this encounter Visit Diagnoses Diagnosis Chronic low back pain, unspecified back pain laterality, unspecified whether sciatica present documented in this encounter Additional Health Concerns Assessment Noted Time PHQ-9 Depression Total Score: 3 03/28/20 24 1:17 PM EST documented as of this encounter Care Teams Flight Test Engineer Relationship Specialty Start Date End Date Corey Monsalve MD [address] [place] [address] PCP - General Internal Medicine 12/14/13 documented as of this encounter
[2024-10-26 10:00] LABS: Alanine Aminotransferase 49 U/L (0-40); Albumin Level 4.4 g/dL (3.5-5.0); Alkaline Phosphatase 67 U/L (39-117); Aspartate Amino Transferase 38 U/L (5-37); Bilirubin Direct 0.4 mg/dL (0.0-0.5); Bilirubin Total 0.9 mg/dL (0.0-1.0); Cholesterol 94 mg/dL (<200); HDL Cholesterol 36 mg/dL (>40); LDL Cholesterol Calculated 44 mg/dL (<100); Total Protein 7.1 g/dL (6.5-8.0); Triglycerides 71 mg/dL (<150)
== END 2024-10-26 08:22 | disposition home or self-care (01) ==
LOC: HO.LAB 08:21
PROVIDERS: Nurse Practitioner Family; PCP Internal Medicine; Visit Provider Internal Medicine
DX: E87.5 Hyperkalemia (principal)
CPT/HCPCS: 36415; 80061; 80076

== ENCOUNTER 2024-12-21 08:16 | Outpatient (REF) | payer OTHER, SELFPAY ==
--- NOTE | ~2024-12-21 | US_ITS ---
CLINICAL HISTORY: N20.0 - Calculus of kidney US renal with Color Doppler Comparison: US/NV - US RENAL BI - 05/19/24 09:55 EST US/NV/SR - US KIDNEY BILATERAL - 09/23/23 13:44 EDT US/SR - US KIDNEY BILATERAL - 03/16/23 09:59 EST Findings: Right kidney normal size and echotexture, 13.3 cm length. No hydronephrosis. No calculus demonstrated. Normal color flow. Parapelvic cyst lower pole measuring 1.4 x 1.2 x 1.1 cm previously 1.5 x 2.0 x 1.3 cm. Renal cortical cyst upper pole measuring 3.8 x 3.4 x 3.3 cm previously 3.9 x 3.2 x 3.0 cm. Left kidney normal size and echotexture, 12.3 cm length. No hydronephrosis. Normal color flow. Nonobstructing caliceal stone midpole measuring 3 mm previously measuring 2 mm. Lower pole renal cortical cyst at 1.5 x 1.1 x 1.1 cm previously 0.8 x 0.8 x 0.9 cm. Impression: 1. Nephrolithiasis on the left without evidence of obstructive uropathy. Bilateral renal cortical and parapelvic cysts. This document has been electronically signed by: Mesfin Fink MD on 12/21/2024 10:32:36
--- OUTSIDE RECORDS SUMMARY | 2024-12-21 08:23 | XMS_ITS | Encounter Summary ---
Author Organization [employer] Address 75 [facility] 7t [place] [address] Care Team Providers Care Consulting Database Administrator Name Role Phone Corey Monsalve MD Primary Care Provide r Reason for Visit * Reason Comments Med Refill Encounter Details Date Type Department Care Team ([facility] st Contact Info) Description 07/25/2024 Refill [facility] 230 [place] [address] Corey Monsalve MD 230 [place] [address] Chronic low back pain, unspecified back pain [...] Description 12/22/2024 9:00 AM EDT Clinical Support [facility] [address] [place] [address] Vidhya Dickson, TEODORA [address] [place] [address] 01/11/2025 10:00 AM EDT Office Visit [facility] [address] [place] [address] Corey Monsalve MD [address] [place] [address] documented as of this encounter Visit Diagnoses Diagnosis Chronic low back pain, unspecified back pain laterality, unspecified whether sciatica present documented in this encounter Additional Health Concerns Assessment Noted Time PHQ-9 Depression Total Score: 3 03/28/20 24 1:17 PM EST documented as of this encounter Care Teams Consulting Database Administrator Relationship Specialty Start Date End Date Corey Monsalve MD [address] [place] [id number] PCP - General Internal Medicine 12/14/13 documented as of this encounter
== END 2024-12-21 08:17 | disposition home or self-care (01) ==
LOC: HO.US 08:16
PROVIDERS: PCP Internal Medicine; Visit Provider Nurse Practitioner Family
DX: N20.0 Calculus of kidney (principal)
CPT/HCPCS: 76775

== ENCOUNTER → 2024-12-21 08:17 | Outpatient (BNV) | payer OTHER, SELFPAY | PROVIDERS: PCP Internal Medicine; Visit Provider Radiology Diagnostic Radiology | DX: N20.0 Calculus of kidney (principal) | CPT/HCPCS: 76775 ==

== ENCOUNTER 2024-12-28 10:13 | Outpatient (AMB) | payer OTHER, SELFPAY ==
[2024-12-28 10:18] VITALS: BP 110/72; PULSE 74; BMI 28.3
--- NOTE | 2024-12-28 10:18 | A.OFFVIS_ITS ---
Vital Signs 12/28/24 10:18 Height 5 ft 9 in Weight 191 lb 12.835 oz BMI 28.3 BP 110/72 Blood Pressure Location Lt brachial Position Sitting Pulse 74 Pulse Source Pulse Oximeter Intake Visit Reasons: 4m follow up Inventory Accountant Required: Yes Inventory Accountant Language: Tailing Machine Operator Name: voice mays [id number] Allergies No Known Allergies Allergy (Mild, Verified 12/28/24 10:21) NONE Medication List - Last Reconciled 12/28/24 by Tamar Yanes NP-C aspirin 81 mg PO DAILY atorvastatin 40 mg PO BEDTIME blood sugar diagnostic (FreeStyle Lite Strips) As directed cyclobenzaprine 10 mg PO TID docusate sodium 100 mg PO DAILY dulaglutide (Trulicity) mg subcut flash glucose sensor (FreeStyle Abhishek 2 Sensor kit) As directed ibuprofen 800 mg PO TID insulin glargine (Lantus U-100 Insulin) units subcut lancets (TRUEplus Lancets) As directed metformin ER 500 mg PO BID metoprolol succinate ER 12.5 mg (1/2 x 25 mg) PO DAILY 90 days omega 3-hop-mkg-fish oil 300 mg (120 mg- 180mg)-1,000 mg caps PO oxycodone 5 mg PO Q6H PRN pyridoxine (vitamin B6) 50 mg (1/2 x 100 mg) PO DAILY 90 days timolol maleate 0.5% 1 drp ophthalmic (eye) BID zolpidem mg PO HPI HPI 4m follow up: Details: Tex is a 64-year-old male with past medical history of hyperlipidemia, diabetes, nonobstructive CAD as seen on CTA of coronaries who presents for follow up. Today he reports that had 1 day since his last visit in August where he felt heart palpitations on 3 different occasions. The episodes were brief each time. He has not had any recurrent heart palpitations. He drinks 1 caffeinated beverage per day. No chest discomfort at rest or with activity. He has no shortness of breath, PND, orthopnea or edema. No heart palpitations, lightheadedness, presyncope, syncope. He still admits to being sedentary and does no routine exercise due to his chronic low back pain. He has been taking his meds as directed. Certified parts interpreter used. [facility] Medical History Chronic back pain Hyperlipidemia Diabetes Family History Brother Heart murmur Blood clot in vein Social History Alcohol intake: former Patient Tobacco Use Status: Former Tobacco user Review of Systems Const All systems reviewed & are unremarkable except as noted in HPI and below ENT Denies dizziness Card Denies chest pain, Denies chest pain at rest, Denies chest pain with activity, Denies rapid heart rate, Denies pedal edema, Denies edema, Denies leg edema, Denies lightheadedness, Denies palpitations, Denies dyspnea, Denies dyspnea on exertion and Denies orthopnea Resp Denies cough, Denies dyspnea and Denies dyspnea on exertion GI Denies hematochezia and Denies change in stool character Musc Denies abnormal gait, Denies limited range of motion, Denies muscle cramps, Denies muscle weakness, Denies numbness, Denies radiating pain into limb, Denies stiffness and Denies tingling Neuro Denies abnormal gait, Denies dizziness, Denies numbness and Denies tingling Endo Denies palpitations Physical Exam Vital Signs: BMI result Body Mass Index 28.3 Const General: cooperative, healthy appearing, comfortable and no acute distress Orientation/consciousness: patient oriented x3 Neck Neck: Yes normal visual inspection Resp Effort & Inspection: normal respiratory effort Auscultation: clear to auscultation bilaterally, no rales, no rhonchi and no wheezes Cardio Rate: regular rate Rhythm: regular rhythm Heart sounds: S1 normal heart sound present, S2 normal heart sound present, no gallops, no murmurs and no rubs Neuro General: patient oriented x3 Extrem General: Yes normal to inspection, No no pedal edema and No calf tenderness Psych Appearance: grossly normal Mental Status: mental status grossly normal Speech and movement: Normal speech and movement present Assessment & Plan Assessment & Plan (1) CAD (coronary artery disease): Comment: CTA of the coronary arteries 07/14/1999 09/27/2039 to 49% stenosis of the proximal segment of the mid LAD, minimal stenosis in the 1st diagonal proximal less than 25%, normal dominant RCA Code(s): I25.10 - Atherosclerotic heart disease of [place] coronary artery without angina pectoris Category: Medical Plan: Cardiac evaluation for Prior reports of chest pressure, with findings of mild to moderate nonobstructive coronary disease: His EKG has shown sinus rhythm with no acute ST or T-wave abnormalities, rate 72. Echocardiogram done 03/07/2024 with EF 63%, no valve abnormalities and no regional wall motion abnormalities. A dobutamine stress echocardiogram done 04/11/2024 showed no echo evidence of ischemia. Then he had a CTA of the coronary arteries, for ongoing symptoms, on 07/13/2024 which showed mild to moderate CAD. Diagnosis of nonobstructive CAD reviewed with him. Cardiac risk factors of hyperlipidemia and diabetes. Currently has no anginal symptoms. Will continue with risk factor modification and treatment for stable CAD. Continue aspirin indefinitely. Continue atorvastatin with ideal LDL goal less than 70. Continue low-dose metoprolol. Signs and symptoms of angina reviewed with him. Cardiology follow-up 6 months, sooner if needed. (2) Hyperlipidemia: Code(s): E78.5 - Hyperlipidemia, unspecified Category: Medical Plan: [place] LDL goal less than 70 in patient with diabetes, cad. Labs done 10 26 2024 showed LDL 44, AST 38, ALT 49. Continue atorvastatin 40 mg daily. (3) Diabetes: Code(s): E11.9 - Type 2 diabetes mellitus without complications Category: Medical Plan: Hemoglobin A1c goal less than 7. Followed by his PCP. (4) Palpitations: Code(s): R00.2 - Palpitations Category: Medical Plan: Reports of heart palpitations occurring on 1 day over a month ago. Episodes brief and lasting few minutes each. No reoccurrence since then. Instructed to limit caffeine intake. Notify this office if he has issues with recurrent heart palpitations and Holter monitor will be ordered. Continue metoprolol. Plan I discussed with the patient that if he experiences further episodes of rapid he art rate, we will order a campus monitor to evaluate his heart rhythm during these episodes. I advised him to continue his current medications and to report any new symptoms, such as chest pain or increased heart rate. I encouraged him to remain as active as possible within his physical limitations and to maintain adequate hydration. We agreed on a follow-up in six months, with instructions to return sooner if symptoms worsen or new symptoms develop. Patient Instructions: - Continue taking all prescribed medications. - Report any new chest pain or rapid heart rate. - Stay as active as possible within your physical limits. - Maintain adequate hydration by drinking enough fluids. - Follow up in six months or sooner if symptoms worsen. Patient was informed and verbally consented to the use of an ambient scribe for clinic note documentation during this visit. Visit time spent on chart review, interview, assessment, orders, documentation. Coding Level of Care Code Est Pt Level 4 (47842) Complex EM visit Add On G2211 Diagnoses CAD (coronary artery disease) I25.10 Hyperlipidemia E78.5 Diabetes E11.9 Palpitations R00.2 Time Spent (min) 28
--- OUTSIDE RECORDS SUMMARY | 2024-12-28 11:44 | XMS_ITS | Encounter Summary ---
Author Organization [employer] Address 75 [facility] 7t [place] [address] Care Team Providers Care Toolmaker Helper Name Role Phone Corey Monsalve MD Primary Care Provide r Reason for Visit * Reason Comments Med Refill Encounter Details Date Type Department Care Team ([facility] st Contact Info) Description 07/25/2024 Refill [facility] MEDICINE 230 [place] [address] Corey Monsalve MD 230 [place] [address] Chronic low back pain, unspecified back pain [...] Orientation Straight 03/09/2022 10 :17 AM EDT Travel History Travel Start Travel End [place] 12/04/2024 12/19/2024 documented as of this encounter Plan of Treatment Upcoming Encounters Date Type Department Care Team (Late st Contact Info) Description 01/11/2025 10:00 AM EDT Office Visit [facility] MEDICINE [address] [place] [address] Corey Monsalve MD 230 [place] [address] 01/19/2025 9:00 AM EDT Nutrition [facility] DIABETES/NUTRITION [address] [place] [address] [place] [address] 03/23/2025 9:00 AM EST Clinical Support [facility] MEDICINE [address] [place] [address] Vidhya Dickson, TEODORA 505 [place], [place] [phone] documented as of this encounter Visit Diagnoses Diagnosis Chronic low back pain, unspecified back pain laterality, unspecified whether sciatica present documented in this encounter Additional Health Concerns Assessment Noted Time PHQ-9 Depression Total Score: 3 03/28/20 24 1:17 PM EST documented as of this encounter Care Teams Toolmaker Helper Relationship Specialty Start Date End Date Corey Monsalve MD [address] [place] [address] PCP - General Internal Medicine 12/14/13 documented as of this encounter
== END 2024-12-28 10:37 | disposition home or self-care (01) ==
LOC: HO.HCS 10:14
PROVIDERS: PCP Internal Medicine; Visit Provider Nurse Practitioner Family
DX: I25.10 Atherosclerotic heart disease of native coronary artery without angina pectoris (principal); E78.5 Hyperlipidemia, unspecified; E11.9 Type 2 diabetes mellitus without complications; R00.2 Palpitations
CPT/HCPCS: 99214; G2211

== ENCOUNTER → 2024-12-28 10:13 | Outpatient (BNVA) | payer OTHER, SELFPAY | PROVIDERS: PCP Internal Medicine; Visit Provider Nurse Practitioner Family | DX: N28.1 Cyst of kidney, acquired (principal); N20.0 Calculus of kidney; I25.10 Atherosclerotic heart disease of native coronary artery without angina pectoris; I10 Essential (primary) hypertension; E11.9 Type 2 diabetes mellitus without complications; E78.5 Hyperlipidemia, unspecified; R00.2 Palpitations | CPT/HCPCS: 81003; 99212 ==

== ENCOUNTER 2024-12-28 15:03 | Outpatient (AMB) | payer OTHER, SELFPAY ==
--- NOTE | 2024-12-28 15:05 | A.OFFVIS_ITS ---
Intake Visit Reasons: follow up ultrasound Intake Note: Patient is present for follow up/US * Imaging 12/21 * PSA:0.19 Urology Medication: Vitamin B6 Antibiotic Allergies: None Blood Thinners:Aspirn Outside Sales Consultant Required: No Accompanied by: Self / Same As Patient Allergies No Known Allergies Allergy (Mild, Verified 12/28/24 15:42) NONE Medication List - Last Reconciled 12/28/24 by DEL Coreas- aspirin 81 mg PO DAILY atorvastatin 40 mg PO BEDTIME blood sugar diagnostic (FreeStyle Lite Strips) As directed cyclobenzaprine 10 mg PO TID docusate sodium 100 mg PO DAILY dulaglutide (Trulicity) mg subcut flash glucose sensor (FreeStyle Abhishek 2 Sensor kit) As directed ibuprofen 800 mg PO TID insulin glargine (Lantus U-100 Insulin) units subcut lancets (TRUEplus Lancets) As directed metformin ER 500 mg PO BID metoprolol succinate ER 12.5 mg (1/2 x 25 mg) PO DAILY 90 days omega 5-pac-dpv-fish oil 300 mg (120 mg- 180mg)-1,000 mg caps PO oxycodone 5 mg PO Q6H PRN pyridoxine (vitamin B6) 50 mg (1/2 x 100 mg) PO DAILY 90 days timolol maleate 0.5% 1 drp ophthalmic (eye) BID zolpidem mg PO HPI Comments Details: Tex is a very pleasant 64-year-old Belarusian-speaking male patient of Dr. Spears. He has a PMH of history of DM, HLD, and chronic back pain. He presents to the office today for a follow up of his nephrolithiasis and renal cysts. In discussion with the patient today reports to be doing and feeling well. He denies having had any bothersome urinary issues or concerns since his last office visit here. Recent renal imaging results were reviewed with the patient today. 01/01 nephrolithiasis on left 2 mm without evidence of obstruction uropathy. Bilateral renal cortical and peripelvic cysts. In office urinalysis results reviewed with the patient today. He denies urinary urgency, urinary frequency, incontinence, hematuria, dysuria, foul smelling urine, changes to urinary stream, flank pain, fever, and or chills. He is happy with his current voiding parameters. PSAs are as follows: 04/26 1.1, 03/01 0.2, 06/03 0.2 We discussed at length potential causes for nephrolithiasis. He otherwise offers no other issues or concerns at this time. FORMERLY [facility] Medical History Chronic back pain Hyperlipidemia Diabetes Family History Brother Heart murmur Blood clot in vein Social History Alcohol intake: former Patient Tobacco Use Status: Former Tobacco user Review of Systems Const Reports as per HPI Eyes Reports no additional complaints ENT Reports no additional complaints Card Reports as per HPI Resp Reports no additional complaints GI Reports no additional complaints Reports as per HPI Musc Reports as per HPI Neuro Reports no additional complaints Psych Reports no additional complaints Endo Reports as per HPI Physical Exam Const General: cooperative, healthy appearing, comfortable, no acute distress, well developed, alert and awake Nutritional Appearance: average body habitus Orientation/consciousness: patient oriented x3 Limitations: no limitations HEENT Head: Yes normal to inspection, Yes normocephalic and Yes atraumatic Ears: hearing grossly normal bilaterally Eyes General: appearance normal, both eyes and all related structures Neck Neck: Yes normal visual inspection and Yes trachea midline Chest Chest palpation & inspection: normal inspection of the chest Resp Effort & Inspection: normal respiratory effort and able to speak in complete sentences Cardio Rate: regular rate GI Inspection: Yes normal to inspection General: Yes no CVA tenderness Back/Spine/Pelvis Back: no CVA tenderness Skin General skin exam: no rashes or lesions noted Neuro General: patient oriented x3 Extrem General: Yes normal to inspection Psych Appearance: grossly normal and well kempt Mental Status: mental status grossly normal Speech and movement: Normal speech and movement present and Clear speech present Affect: normal affect Attitude: cooperative Thought process: Normal thought process present Thought content: Normal thought content present Insight: Fair insight present (Psych) Judgement: Fair judgement present (Psych) Results AMB Urinalysis, Automated UA Leukoctes 0 Uriel/uL Last Edit by Nathalia Farfan on 12/28/24 16:52 UA Nitrite Negative Last Edit by Nathalia Farfan on 12/28/24 16:52 UA Urobilinogen 3.5 mg/dL Last Edit by Nathalia Farfan on 12/28/24 16:52 UA Protein 0 mg/dL Last Edit by Nathalia Farfan on 12/28/24 16:52 UA pH 6.0 Last Edit by Nathalia Farfan on 12/28/24 16:52 UA Blood 0 Esteban/uL Last Edit by Nathalia Farfan on 12/28/24 16:52 UA Specific [place] 1.020 Last Edit by Nathalia Farfan on 12/28/24 16:52 UA Ketone Negative Last Edit by Nathalia Farfan on 12/28/24 16:52 UA Bilirubin 0 mg/dL Last Edit by Nathalia Farfan on 12/28/24 16:52 UA Glucose 0 mg/dL Last Edit by Nathalia Farfan on 12/28/24 16:52 Results Reviewed Results Reviewed: Laboratory Last Values Urine pH (Auto) 6.0 12/28/24 16:02 Specific [place] (Auto) 1.020 12/28/24 16:02 Urine Protein (Auto) 0 mg/dL 12/28/24 16:02 Glucose (UA)(Auto) 0 mg/dL 12/28/24 16:02 Urine Ketones (Auto) Negative 12/28/24 16:02 Urine Blood (Auto) 0 Esteban/uL 12/28/24 16:02 Urine Nitrite (Auto) Negative 12/28/24 16:02 Urine Bilirubin (Auto) 0 mg/dL 12/28/24 16:02 Urine Urobilinogen (Auto) 3.5 mg/dL 12/28/24 16:02 Leukocyte Esterase (Auto) 0 Uriel/uL 12/28/24 16:02 Date of Service: 12/21/24 Procedure(s): US renal BI Findings: Right kidney normal size and echotexture, 13.3 cm length. No hydronephrosis. No calculus demonstrated. Normal color flow. Parapelvic cyst lower pole measuring 1.4 x 1.2 x 1.1 cm previously 1.5 x 2.0 x 1.3 cm. Renal cortical cyst upper pole measuring 3.8 x 3.4 x 3.3 cm previously 3.9 x 3.2 x 3.0 cm. Left kidney normal size and echotexture, 12.3 cm length. No hydronephrosis. Normal color flow. Nonobstructing caliceal stone midpole measuring 3 mm previously measuring 2 mm. Lower pole renal cortical cyst at 1.5 x 1.1 x 1.1 cm previously 0.8 x 0.8 x 0.9 cm. Impression: 1. Nephrolithiasis on the left without evidence of obstructive uropathy. Bilateral renal cortical and parapelvic cysts. Assessment & Plan Assessment & Plan (1) Renal cyst: Code(s): N28.1 - Cyst of kidney, acquired Category: Medical (2) Calculus of kidney: Code(s): N20.0 - Calculus of kidney Category: Medical Plan In office urinalysis results reviewed with the patient today; as noted above. Recent renal imaging results reviewed with the patient today; as noted above. He currently denies any bothersome urinary issues or concerns. He reports be happy with current voiding parameters. Will continue with surveillance monitoring. We discussed importance of adequate hydration in relation to nephrolithiasis as well as overall health and well-being. Continue vitamin B6 as discussed and prescribed. We discussed adding 1 oz of lemon juice to water daily. Will continue with surveillance monitoring. Will obtain renal ultrasound in 6 months. Follow-up in 6 months with imaging to be completed prior; or sooner with any issues, concerns, and or questions. Orders: Orders AMB Urinalysis Automated Today Z13.9 - Encounter for screening, unspecified Patient Instructions: The patient had an opportunity to ask questions regarding the treatment plan. All questions were answered. Physical exam, labs, and imaging were discussed and reviewed in detail. As well as risks, benefits, and discussion of treatment choices. No major barriers to understanding were identified. The patient expressed understanding and agreement with the above treatment plan. The patient was made aware they should contact our office by phone for worsening of their current condition, the appearance of new symptoms, or with any questions or concerns. Compliance is encouraged with any medications and follow up testing that is ordered. It is a privilege to be allowed the opportunity to participate in? your urological care.? Again, if you have any questions or concerns If you have any questions or concerns please do not hesitate to contact me. The office is [phone]. This note is constructed using voice recognition software. While every effort has been made to ensure accuracy manufacturing technology analyst errors may have been included. Yours sincerely, ZACH Coreas Coding Level of Care Code Est Pt Level 3 (74471) Complex EM visit Add On G2211 Diagnoses Renal cyst N28.1 Calculus of kidney N20.0
== END 2024-12-28 15:30 | disposition home or self-care (01) ==
LOC: HO.HUSH 15:04
PROVIDERS: PCP Internal Medicine; Visit Provider Nurse Practitioner Family
DX: N28.1 Cyst of kidney, acquired (principal); N20.0 Calculus of kidney; Z13.9 Encounter for screening, unspecified
CPT/HCPCS: 99213; G2211